=== PATIENT | female | born 1945 | race Hispanic/Latino ===

== ENCOUNTER 2017-10-24 22:48 | Emergency (ER) | payer MEDICARE ==
[~2017-10-24] VITALS: Ht 162.6 cm; Wt 63.0 kg
[~2017-10-24 22:48] MED LIST: ASPIRIN81 MG PO; ATORVASTATIN CA20 MG PO; CIPRO500 MG PO; GABAPENTIN100 MG PO; GLIMEPIRIDE2 MG PO; JANUVIA25 MG PO; LEVETIRACETAM250 MG PO; LISINOPRIL2.5 MG PO; MECLIZINE HCL12.5 MG PO; METFORMIN HCL500 MG PO; MUCINEX DM ER1 EACH PO; NAPROSYN250 MG PO; NOVOLIN N100 UNIT/1 SC; PIOGLITAZONE HC45 MG PO; SIMVASTATIN40 MG PO; ZITHROMAX500 MG PO
[2017-10-24] MEDS ORDERED: ONDANSETRON HCL INJ 2 MG/ML VIAL IV STA (23:14)
[2017-10-24 23:28] LABS: BASOPHILS % 0.6 % (0.0-1.0); EOSINOPHILS # (AUTO) 0.1 (0.0-0.4); EOSINOPHILS % 1.8 % (0.0-6.0); HEMOGLOBIN 11.3 g/dL (12.0-16.0); LYMPHOCYTES # (AUTO) 2.8 (1.0-3.2); LYMPHOCYTES % 56.9 % (18.0-39.1); MEAN CORPUSCULAR HEMOGLOBIN 29.4 pg (28-32); MEAN CORPUSCULAR HGB CONC 32.3 g/dL (31-35); MEAN CORPUSCULAR VOLUME 90.9 fL (81-99); MONOCYTES # (AUTO) 0.3 (0.2-0.8); MONOCYTES % 5.9 % (4.4-11.3); NEUTROPHILS # (AUTO) 1.7 (2.1-6.9); NEUTROPHILS % 34.8 % (38.7-80.0); PLATELET COUNT 223 x10e3/uL (140-360); RED BLOOD COUNT 3.85 x10e6/uL (3.6-5.1); RED CELL DISTRIBUTION WIDTH 13.8 % (11.7-14.4)
[2017-10-24 23:37] LABS: INR 0.92; PROTHROMBIN TIME 11.6 seconds (11.9-14.5)
[2017-10-24 23:38] LABS: PARTIAL THROMBOPLASTIN TIME 29.3 seconds (23.8-35.5)
[2017-10-24 23:47] LABS: ALANINE AMINOTRANSFERASE 14 IU/L (0-55); ALBUMIN 3.9 g/dL (3.5-5.0); ALBUMIN/GLOBULIN RATIO 1.3 (0.8-2.0); ALKALINE PHOSPHATASE 129 IU/L (40-150); ANION GAP 12.6 mmol/L (8-16); BLOOD UREA NITROGEN 18 mg/dL (7-26); BUN/CREATININE RATIO 17 (6-25); CALCIUM 8.9 mg/dL (8.4-10.2); CARBON DIOXIDE 26 mmol/L (22-29); CHLORIDE 108 mmol/L (98-107); CREATINE KINASE 87 IU/L (29-168); CREATININE, SERUM 1.06 mg/dL (0.57-1.11); EST GLOMERULAR FILTRATION RATE 51 ML/MIN (60-); GLUCOSE 238 mg/dL (74-118); POTASSIUM 4.6 mmol/L (3.5-5.1); SODIUM 142 mmol/L (136-145)
[2017-10-24 23:59] LABS: ERYTHROCYTE SEDIMENTATION RATE 13 mm/hr (0-20)
--- NOTE | 2017-10-25 00:09 | Diagnostic Imaging Report ---
EXAMINATION: Head CT without contrast. HISTORY:Headache prior history of subdural hemorrhage. COMPARISON:Multiple prior studies, most recent CT head from 03/28/2017 and MRI brain from 03/29/2017. TECHNIQUE: Multidetector axial images were obtained from the foramen magnum to the vertex without contrast. The images were reconstructed using brain and bone algorithms. Thin section brain images were reformatted into coronal and sagittal planes. Intravenous contrast: None IMAGE QUALITY: Acceptable. FINDINGS: Skull/scalp: Expected postoperative changes from prior left pterional craniotomy. Parenchyma: Unchanged cortical-based hypodensity in bilateral temporal lobe (left more than right) and left inferior frontal gyrus/orbitofrontal region represents chronic encephalomalacia related to prior vascular insult or trauma. Nonspecific bilateral frontoparietal patchy white matter hypodensity are likely related to small vessel ischemic changes. No acute hemorrhage, mass or acute major vascular territorial infarct. Arteries: Atherosclerotic calcification in bilateral carotid siphon and V4 segment of right vertebral artery. Dural sinuses: No abnormal density suggestive of thrombosis. Ventricles: No hydrocephalus or displacement. Extra-axial spaces: No abnormal density. Brain volume: Generalized age-related cerebral volume loss. Craniocervical junction: No mass, Chiari malformation, or basilar invagination. Sella: No mass. Paranasal/mastoid sinuses: Imaged portions unremarkable. IMPRESSION: No new or acute intracranial abnormality. No change since CT brain from 03/28/2017. Chronic findings: 1. Expected postoperative changes from prior left pterional craniotomy. 2. Chronic encephalomalacia in bilateral (left greater than right) temporal lobes and anterior aspect of left frontal lobe related to prior trauma or vascular insult. 3. Mild supratentorial white matter microvascular ischemic changes. 4. Mild generalized age-related cerebral volume loss. Signed by: Dr. Arleen Ham M.D. on 10/25/2017 12:06 AM
[2017-10-25] MEDS ORDERED: KETOROLAC TROMETHAMINE 30 MG/ML VIAL IV STA (00:20)
[2017-10-25] MEDS ORDERED: METOCLOPRAMIDE HCL 10 MG/2ML VIAL IV ONE (00:30)
[2017-10-25] MEDS ORDERED: DIPHENHYDRAMINE HCL INJ 50 MG/ML VIAL IV ONE (00:30)
[2017-10-25] MEDS ORDERED: SODIUM CHLORIDE 0.9% 500ML 500 ML IV ONE (00:30)
[2017-10-25] MEDS ORDERED: FIORICET PO (02:29)
[2017-10-25 02:31] VITALS: BP 140/69
== END 2017-10-25 02:44 | disposition home or self-care (01) ==
LOC: ER 22:48
DX: G44.1 Vascular headache, not elsewhere classified (principal); I10 Essential (primary) hypertension; E11.9 Type 2 diabetes mellitus without complications
CPT/HCPCS: 36415; 70450; 80053; 82550; 82553; 84484; 85025; 85610; 85651; 85730; 96360; 96374; 99284; J1200; J1885; J2405; J2765; J7040

== ENCOUNTER 2018-03-14 12:02 | Inpatient (IN) | payer MEDICARE ==
[~2018-03-14] VITALS: Ht 162.6 cm; Wt 70.1 kg
[~2018-03-14 12:02] MED LIST changes: +FIORICET PO
[2018-03-14] MEDS ORDERED: SODIUM CHLORIDE 0.9% 1000ML 1,000 ML IV STA (12:16)
[2018-03-14 12:43] LABS: BASOPHILS % 0.7 % (0.0-1.0); EOSINOPHILS # (AUTO) 0.1 (0.0-0.4); HEMOGLOBIN 11.8 g/dL (12.0-16.0); LYMPHOCYTES # (AUTO) 2.3 (1.0-3.2); LYMPHOCYTES % 50.3 % (18.0-39.1); MEAN CORPUSCULAR HEMOGLOBIN 30.3 pg (28-32); MEAN CORPUSCULAR HGB CONC 33.7 g/dL (31-35); MEAN CORPUSCULAR VOLUME 89.7 fL (81-99); MONOCYTES # (AUTO) 0.4 (0.2-0.8); MONOCYTES % 7.9 % (4.4-11.3); NEUTROPHILS # (AUTO) 1.8 (2.1-6.9); NEUTROPHILS % 38.9 % (38.7-80.0); PLATELET COUNT 221 x10e3/uL (140-360); RED CELL DISTRIBUTION WIDTH 13.4 % (11.7-14.4)
--- NOTE | 2018-03-14 12:46 | Diagnostic Imaging Report ---
PROCEDURE: A single AP view of the chest. COMPARISON: None. INDICATIONS: ELEVATED BLOOD PRESSURE FINDINGS: Lines/tubes: None. Lungs: The lungs are well inflated and clear. There is no evidence of pneumonia or pulmonary edema. Pleura: There is no pleural effusion or pneumothorax. Heart and mediastinum: The heart and the mediastinum are unremarkable. Bones: No acute bony abnormality. Stable suture anchor in the right humeral head IMPRESSION: 1. No acute cardiopulmonary disease. Dictated by: Heber Thompson M.D. on 03/14/2018 at 12:51 Electronically approved by: Heber Thompson M.D. on 03/14/2018 at 12:51
[2018-03-14 12:51] LABS: INR 0.97; PARTIAL THROMBOPLASTIN TIME 27.1 seconds (23.8-35.5); PROTHROMBIN TIME 12.1 seconds (11.9-14.5)
[2018-03-14 12:58] LABS: ALANINE AMINOTRANSFERASE 14 IU/L (0-55); ALBUMIN 4.2 g/dL (3.5-5.0); ALBUMIN/GLOBULIN RATIO 1.4 (0.8-2.0); ALKALINE PHOSPHATASE 93 IU/L (40-150); ANION GAP 11.9 mmol/L (8-16); BLOOD UREA NITROGEN 24 mg/dL (7-26); BUN/CREATININE RATIO 22 (6-25); CALCIUM 9.8 mg/dL (8.4-10.2); CARBON DIOXIDE 27 mmol/L (22-29); CHLORIDE 106 mmol/L (98-107); CREATINE KINASE 107 IU/L (29-168); CREATININE, SERUM 1.07 mg/dL (0.57-1.11); EST GLOMERULAR FILTRATION RATE 50 ML/MIN (60-); GLUCOSE 115 mg/dL (74-118); POTASSIUM 4.9 mmol/L (3.5-5.1); SODIUM 140 mmol/L (136-145)
--- NOTE | 2018-03-14 12:58 | Diagnostic Imaging Report ---
Exam: Head CT without contrast History: Possible CVA, history of previous brain surgery. Comparison studies: Multiple prior head CTs which date to 06/02/2016, most recent 10/24/2017. Technique: Axial images were obtained from the skull base to the vertex. Coronal and sagittal images reconstructed from the axial data. Intravenous contrast: None Findings: Scalp and bones: No acute abnormalities. Surgical changes of previous left foraminal craniotomy. Brain sulci: Mildly prominent. Ventricles: Mild compensatory dilatation. No hydrocephalus. Extra-axial spaces: No masses, no fluid collection. Parenchyma: No mass, acute hemorrhage or acute cortical vascular insults. There are unchanged chronic insults with encephalomalacia and gliosis in the anterior left temporal lobe, in the anterior inferomedial left frontal lobe as well as a small insult in the right anterior superior temporal gyrus. A few scattered hypodensities in the supratentorial white matter are nonspecific but most compatible with chronic microvascular ischemic changes. Sellar/suprasellar region: No abnormalities. Craniocervical junction: Patent foramen magnum. No Chiari one malformation. Incidental findings: Atherosclerotic calcifications in the carotid siphons and intradural vertebral arteries. Partially imaged chronic right orbital floor fracture status post ORIF with metallic mesh in place. IMPRESSION: No acute abnormalities. Chronic findings: 1. Mild generalized volume loss. 2. Mild microvascular ischemic changes. 3. Previous left pterional craniotomy. 4. Insults with encephalomalacia in the frontal lobe and left greater than right temporal lobes. Signed by: Dr. Kieran Samano M.D. on 03/14/2018 12:54 PM
[2018-03-14] MEDS ORDERED: ONDANSETRON HCL INJ 2 MG/ML VIAL IV PRN (14:00)
[2018-03-14] MEDS ORDERED: MORPHINE SULFATE 2 MG/ML SYR IV PRN (14:00)
[2018-03-14] MEDS ORDERED: SODIUM CHLORIDE FLUSH 10 ML SYR INJ PRN (14:00)
[2018-03-14 14:33] LABS: CLARITY,URINE CLEAR (CLEAR); COLOR,URINE STRAW (YELLOW)
[2018-03-14 14:34] LABS: BILIRUBIN,URINE NEGATIVE (NEGATIVE); KETONES,URINE NEGATIVE (NEGATIVE); LEUKOCYTE ESTERASE ,URINE NEGATIVE (NEGATIVE); NITRITE,URINE NEGATIVE (NEGATIVE); PROTEIN,URINE DIPSTICK NEGATIVE (NEGATIVE); URINE UROBILINOGEN 0.2 mg/dL (0.2 - 1)
[2018-03-14] MEDS ORDERED: PROPRANOLOL HCL10 MG PO (14:58)
[2018-03-14] MEDS ORDERED: NITROFURANTOIN100 MG PO (14:58)
[2018-03-14] MEDS ORDERED: URSODIOL300 MG PO (14:58)
[2018-03-14] MEDS ORDERED: GLYCOPYRROLATE1 MG PO (15:02)
[2018-03-14] MEDS ORDERED: BACLOFEN10 MG PO (15:02)
[2018-03-14 16:00] VITALS: BP 211/88
[2018-03-14] MEDS ORDERED: ACETAMINOPHEN/CODEINE 300MG - 30MG TAB PO PRN (16:30)
[2018-03-14] MEDS ORDERED: HYDRALAZINE HCL 25 MG TAB PO PRN (16:30)
[2018-03-14] MEDS ORDERED: ACETAMINOPHEN 325 MG TAB PO PRN ×2 (16:45→17:30)
[2018-03-14] MEDS: TRAMADOL HCL 50 MG TAB PO PRN ×2 (17:06→23:47)
--- NOTE | 2018-03-14 19:20 | Diagnostic Imaging Report ---
Exam: Brain MRI without IV contrast History: CVA, left-sided weakness Comparison studies: Multiple head CTs which date to 06/02/2016, most recent of 03/14/2016. Technique: Sagittal and axial T2 FS, axial DWI, axial T2*GRE, axial T1 FLAIR and axial coronal T2 FLAIR. Intravenous contrast: None Findings: Scalp and skull: Changes of previous left pterional craniotomy. Brain sulci: Mildly prominent. Ventricles: Mild compensatory dilatation. No hydrocephalus. Extra axial spaces: No mass, no fluid collection. Parenchyma: No mass, acute hemorrhage or acute ischemia. There are unchanged chronic insults with encephalomalacia and gliosis in the anterior left temporal lobe, in the anterior, inferomedial left frontal lobe as well as small insult along the right superior temporal gyrus anteriorly. Incidental along the left anteromedial frontal lobe is with hemosiderin staining related to previous hemorrhage. A few scattered T2 FLAIR hyperintense foci in the supratentorial white matter are nonspecific but most compatible with chronic microvascular ischemic changes. Suprasellar region: No abnormalities. Craniocervical junction: Patent foramen magnum. No Chiari malformation. Vessels: Normal flow-voids in the arteries and sinuses. Incidental findings: Bilateral intraocular lens replacements. Chronic right orbital floor fracture status post or left with metallic mesh in place. IMPRESSION: No acute ischemia or other acute intracranial abnormalities. No changes from the previous brain MRI of 03/29/2017. Chronic findings: 1. Mild generalized volume loss. 2. Mild microvascular ischemic changes. 3. Previous left pterional craniotomy. 4. Insults with encephalomalacia in the frontal lobe and left greater than right temporal lobes. Signed by: Dr. Kieran Samano M.D. on 03/14/2018 7:17 PM
[2018-03-14 20:01] VITALS: BP 133/61
[2018-03-14] MEDS: LEVETIRACETAM 500 MG TAB PO SCH (20:03)
[2018-03-14] MEDS: GABAPENTIN 100 MG CAP PO SCH (20:04)
[2018-03-14] MEDS: INSULIN LISPRO 100 UNIT/1 ML 3ML VIAL SQ SCH (20:06)
[2018-03-14 21:31] VITALS: BP 133/61
[2018-03-15] VITALS (8 sets, daily range): BP systolic 103–148; BP diastolic 56–67
[2018-03-15] MEDS: INSULIN LISPRO 100 UNIT/1 ML 3ML VIAL SQ SCH ×4 (07:30→20:29)
[2018-03-15] MEDS: LEVETIRACETAM 500 MG TAB PO SCH ×2 (08:37→17:08)
[2018-03-15] MEDS: BACLOFEN 10 MG TAB PO SCH ×2 (08:37→17:08)
[2018-03-15] MEDS: GABAPENTIN 100 MG CAP PO SCH ×3 (08:37→20:26)
[2018-03-15] MEDS: GLIMEPIRIDE 2 MG TAB PO SCH (08:37)
[2018-03-15] MEDS: ASPIRIN 81 MG CHEW TAB PO SCH (08:37)
[2018-03-15] MEDS: URSODIOL 300 MG CAP PO SCH ×2 (08:37→17:08)
--- NOTE | 2018-03-15 12:39 | Consultation ---
DATE OF CONSULTATION: March 15, 2018 NEUROLOGY CONSULT NOTE HISTORY OF PRESENT ILLNESS: Ms. Delgado is a 72-year-old [id number] woman with past medical history significant for hypertension, hyperlipidemia, diabetes mellitus type 2, prior stroke with residual left hemiparesis, hemihypesthesia, and gait impairment, and a prior intracerebral hemorrhage status post craniotomy without residual deficits, who presented to the emergency center at [facility] on March 14, 2018 with stroke-like symptoms in the setting of severely elevated blood pressure. Beginning approximately 5 days ago, the patient's blood pressures gradually increased to approximately 180 systolic over 100s diastolic. During this time, Ms. Delgado experienced worsening of her baseline left hemiparesis. Other symptoms endorsed by the patient include: Dysarthria, left hemihypesthesia, gait impairment, dizziness which is further described as a vertiginous sensation, and mild confusion. Ms. Delgado reports a generalized headache which is described as pressure, blurred vision, and nausea without vomiting as well. After 2 days of gradually increasing blood pressures, Ms. Delgado contacted her primary care physician, who recommended the patient proceed to the nearest emergency center for evaluation. However, the patient had a followup appointment scheduled with her neurologist the following day and decided to wait for that appointment before pursuing further medical evaluation. During her neurologist evaluation, worsening of the patient's baseline neurological deficits were observed. Her neurologist scheduled a CT of the brain to be performed on March 14, 2018 at 1600. However, on the day of admission, Ms. Delgado symptoms as detailed above worsened. She took her blood pressure, which was 211/109 mmHg. Ms. Delgado then proceeded to the emergency center at [facility] for further evaluation. Upon arrival in the emergency center, the patient was afebrile with a blood pressure of 218/90 mmHg and a pulse of 50 beats per minute. Her neurological examination was significant for a decreased level of alertness, mild dysarthria, mild right-sided facial weakness and left-sided facial weakness, mildly abnormal finger-nose test on the left, and localized weakness of the left leg (4 out 5). A CT of the brain without contrast was performed and did not show evidence of a recent large territorial ischemia or hemorrhage. Ms. Delgado was admitted to [facility] as an inpatient for further evaluation and treatment of a suspected stroke. As stated above, the patient has a known history of hypertension for which she takes propranolol 10 mg by mouth twice daily and lisinopril 2.5 mg by mouth daily at home. The patient follows up with her primary care physician every 2 to 3 months (approximately). She monitors her blood pressure at home once every other day. REVIEW OF SYSTEMS: Dry mouth, heartburn, nausea, confusion, blurred vision, dysarthria, left hemiparesis, left hemihypesthesia, impairment of balance and gait, headache, and vertigo. Otherwise, a 12-point review of systems is negative. PAST MEDICAL HISTORY: Hypertension, hyperlipidemia, diabetes mellitus type 2, osteoarthritis, chronic kidney disease stage 1 or 2, occasional migraines, prior stroke with residual left hemiparesis, left hemihypesthesia, and gait impairment, prior intracerebral hemorrhage status post right-sided craniotomy without residual deficits. PAST SURGICAL HISTORY: Cholecystectomy, section, total hysterectomy, right-sided craniotomy, appendectomy, bilateral rotator cuff repair, bilateral cataract removal, repair of right orbital fracture. PAST HOSPITALIZATIONS: Surgeries/procedures as listed, stroke, childbirth x3. FAMILY MEDICAL HISTORY: The patient's paternal and maternal grandparents are . Their medical histories are unknown. The patient's father is . He had diabetes mellitus. Ms. Delgado's mother is . Her only known medical history is osteoporosis. Ms. Delgado had one brother who is from coronary artery disease. She has 2 sisters, both of whom are alive. One sister has a history of breast cancer and colon cancer. The second sister has a history of breast cancer. Ms. Delgado has 3 children, 1 son and 2 daughters. All are alive and healthy. SOCIAL HISTORY: The patient is . She graduated high school and attended some college. Ms. Delgado is retired. She does not report current or prior tobacco or recreational drug use. She endorses rare alcohol use. HOME MEDICATIONS: Aspirin 81 mg by mouth daily, lisinopril 2.5 mg by mouth daily, propranolol 10 mg by mouth twice daily, simvastatin 40 mg by mouth daily, glimepiride 2 mg by mouth daily, Novolin N 6 units subcutaneously at bedtime daily, baclofen 10 mg by mouth twice daily, gabapentin 300 mg by mouth 3 times daily, glycopyrrolate 2 mg by mouth 3 times daily, levetiracetam 500 mg by mouth twice daily, nitrofurantoin 100 mg by mouth every 12 hours, ursodiol 300 mg by mouth twice daily. ALLERGIES: CODEINE. NO KNOWN FOOD ALLERGIES. NO KNOWN ALLERGIES TO LATEX. NO KNOWN ALLERGIES TO IODINE OR OTHER CONTRAST MATERIALS. PHYSICAL EXAMINATION: VITAL SIGNS: Height 64 inches, weight 154 pounds, BMI 26.5 kg/sq m. Blood pressure 119/60 mmHg, pulse 55 beats per minute, respiratory rate 16 breaths per minute, oxygen saturation 98% on room air. GENERAL: The patient is awake and alert, does not appear distressed. HEENT: Normocephalic, atraumatic. Pupils are surgical. Moist mucous membranes. NECK: Supple. No appreciable thyromegaly. No appreciable carotid bruits. CARDIOVASCULAR: S1, S2, regular rate and rhythm. No murmurs, rubs, or gallops. RESPIRATORY: Clear to auscultation bilaterally. No wheezes, rhonchi, or rales. EXTREMITIES: The skin is warm and dry. No clubbing, cyanosis, or edema. The posterior tibial and dorsalis pedis pulses are 1+ and symmetric. SKIN: No rashes or lesions. NEUROLOGIC EXAMINATION: MEMORY/ATTENTION: The patient is awake and alert, oriented to person, place, time, and situation. CRANIAL NERVES: Cranial nerve I - not tested. Cranial nerves II, III, IV, and - Pupils are surgical. Extraocular movements intact. No nystagmus. Cranial nerve V - Sensation to light touch and pinprick is diminished in the left V1 through V3 distributions. Strength of the temporalis and masseter muscles is within normal limits. Cranial nerve VII - The face is symmetric as are all facial movements. Strength is within normal limits. Cranial nerve VIII - Hearing is intact to finger rub bilaterally. Cranial nerve IX, X - The soft palate elevates equally and symmetrically. Cranial nerve XI - Normal strength of the bilateral sternocleidomastoid and trapezius muscles. Cranial nerve XII - The tongue protrudes midline and moves symmetrically from side to side. STRENGTH: Bulk is normal. Strength is 5/5 in the right deltoids, biceps, triceps, wrist flexors and extensors, finger flexors and extensors, intrinsic hand muscles, hip flexors, knee flexors and extensors, ankle dorsiflexion and plantarflexion, and intrinsic foot muscles. Strength is 4+/5 in the left deltoid, 4+/5 in the left biceps, 4/5 in the left triceps, 4+/5 in the left wrist flexors, 4/5 in the left wrist extensors, 4+/5 in the left finger flexors, 4+/5 in the left finger extensors, 4/5 in the left intrinsic hand muscles, 4/5 in the left hip flexors, 4/5 in the left knee flexors, 4+/5 in the left knee extensors, 4/5 left ankle dorsiflexion, 4+/5 left ankle plantarflexion, and 4/5 in the left intrinsic foot muscles. Tone is normal. DTRs: Deep tendon reflexes are 1+ at the right triceps, biceps, brachioradialis, and patella. Deep tendon reflexes are 2+ at the left triceps, biceps, brachioradialis, and patella. Deep tendon reflexes are absent and symmetric at the Achilles. Plantar responses are flexor bilaterally. SENSATION: Sensation is intact to light touch and pinprick in both arms and both legs. CEREBELLAR: Qozjig-orcj-clwzrd and heel-andersen movements are intact without dysmetria or other impairment. GAIT: Deferred. SPEECH: Spontaneous speech is mildly dysarthric without aphasia. Repetition is intact. INVOLUNTARY MOVEMENTS: None. PRONATOR DRIFT: None. LABORATORY DATA: Sodium 140, potassium 4.9, chloride 106, carbon dioxide 27, anion gap 11.9, BUN 24, creatinine 1.07, estimated GFR 50, BUN to creatinine ratio 22, glucose 115, calcium 9.8. Total bilirubin 0.7, AST 14, ALT 14, alkaline phosphatase 93, total protein 7.2, albumin 4.2, globulin 3.0, albumin to globulin ratio 1.4. Creatine kinase 107, CK-MB 1.00, troponin I less than 0.001. The CBC with differential and platelets reveals a white blood cell count of 4.57 with 38.9% neutrophils, 50.3% lymphocytes, 7.9% monocytes, 2.0% eosinophils, and 0.7% basophils. The hemoglobin and hematocrit are 11.8 and 35.0, respectively. The platelet count is 221,000. PT 12.1, INR 0.97, PTT 27.1. Urinalysis is unremarkable. DIAGNOSTIC STUDIES: 1. Electrocardiogram, March 14, 2018: Sinus bradycardia at 57 beats per minute. 2. Chest x-ray, March 14, 2018: No acute cardiopulmonary disease. 3. CT of the brain without contrast, March 14, 2018: On my review, there is no evidence of recent large territorial ischemia, hemorrhage, mass, or mass effect. Prior vascular insults with encephalomalacia in the left frontal lobe and left greater than right temporal lobes are seen. There are findings compatible with a prior left-sided craniotomy. There is diffuse cerebral atrophy, appropriate for age. There are changes compatible with mild to moderate chronic small-vessel ischemic disease. 4. MRI of the brain without contrast, March 14, 2018: On my review, there is no evidence of recent large territorial ischemia, hemorrhage, mass, or mass effect. Prior vascular insults with encephalomalacia in the left frontal lobe and left greater than right temporal lobes are once again seen. There are changes compatible with a prior left-sided craniotomy. There is diffuse cerebral atrophy, appropriate for age. There are scattered nonspecific T2/FLAIR hyperintensities in the deep white matter compatible with mild to moderate chronic small-vessel ischemic disease. ASSESSMENT AND PLAN: Ms. Delgado is a 72-year-old [id number] woman with past medical history as detailed, presenting to [facility] on March 14, 2018 with worsening dysarthria, left hemiparesis, left hemihypesthesia, and gait impairment in the setting of severely elevated blood pressure. At present, the patient's neurological examination is significant for diminished sensation to light touch and pinprick in the left V1 through V3 distributions, mild left hemiparesis, hyperreflexic deep tendon reflexes in the left arm and left leg, and mildly dysarthric speech without aphasia. Of note, Ms. Delgado reports her symptoms have improved since her admission last night. The patient's laboratory data and other diagnostic studies have been reviewed and are documented above. A new vascular insult (ischemic stroke or intracerebral hemorrhage) is not observed on either the CT of the brain without contrast or the MRI of the brain without contrast. The most probable diagnosis for this patient is recrudescence of prior deficits in the setting of hypertensive emergency. RECOMMENDATIONS: As follows: 1. The patient's home blood pressure medications of lisinopril 2.5 mg by mouth daily and propranolol 10 mg by mouth twice daily will be resumed. Treatment with p.r.n. hydralazine will be continued. The patient's vital signs should be monitored per unit protocol. Ms. Delgado's goal blood pressure is less than 140/90 mmHg. If the patient's blood pressure comes under better control, her neurological deficit should improve until she returns to her previous neurological baseline. 2. Continue the patient's medications for stroke prevention. These include aspirin 81 mg by mouth daily, antihypertensive medications as listed above, simvastatin 40 mg by mouth daily, glimepiride 2 mg by mouth daily, and Novolin N 6 units subcutaneously at bedtime daily. 3. Continue Keppra 500 mg by mouth twice daily for seizure prophylaxis. Of note, Ms. Delgado has never experienced a seizure. However, due to her prior cerebrovascular insults, her neurologist has placed her on Keppra for seizure prophylaxis. 4. Speech and physical therapy consultations will be ordered. 5. GI prophylaxis with Pepcid 20 mg by mouth twice daily before meals. DVT prophylaxis with heparin 5000 units subcutaneously every 12 hours. 6. Defer treatment of the remaining medical comorbidities to the primary and other services. Thank you for this consultation. I will continue to follow the patient while she remains in the hospital. TIME SPENT: 70 minutes. Job#: [id number] DR GEORGE
[2018-03-15] MEDS: TRAMADOL HCL 50 MG TAB PO PRN (12:41)
[2018-03-15] MEDS ORDERED: SIMVASTATIN 40 MG TAB PO SCH (17:00)
[2018-03-15] MEDS: FAMOTIDINE 20 MG TAB PO SCH (17:08)
[2018-03-15] MEDS: PROPRANOLOL HCL 10 MG TAB PO SCH (17:08)
[2018-03-15] MEDS: HEPARIN SOD (PORCINE) 5,000 UNIT/ML VIAL SC SCH (20:27)
[2018-03-16] VITALS: BP 105/56
[2018-03-16 04:00] VITALS: BP_SYST 105; BP_SYST 111; BP_DIAS 56; BP_DIAS 57
[2018-03-16 05:18] LABS: BASOPHILS % 0.2 % (0.0-1.0); EOSINOPHILS # (AUTO) 0.1 (0.0-0.4); EOSINOPHILS % 1.7 % (0.0-6.0); HEMOGLOBIN 11.1 g/dL (12.0-16.0); LYMPHOCYTES # (AUTO) 2.1 (1.0-3.2); LYMPHOCYTES % 40.5 % (18.0-39.1); MEAN CORPUSCULAR HEMOGLOBIN 29.2 pg (28-32); MEAN CORPUSCULAR HGB CONC 31.7 g/dL (31-35); MEAN CORPUSCULAR VOLUME 92.1 fL (81-99); MONOCYTES # (AUTO) 0.4 (0.2-0.8); MONOCYTES % 7.3 % (4.4-11.3); NEUTROPHILS # (AUTO) 2.6 (2.1-6.9); NEUTROPHILS % 50.1 % (38.7-80.0); PLATELET COUNT 229 x10e3/uL (140-360); RED CELL DISTRIBUTION WIDTH 13.6 % (11.7-14.4)
[2018-03-16 05:44] LABS: ANION GAP 13.9 mmol/L (8-16); CALCIUM 8.7 mg/dL (8.4-10.2); CREATININE, SERUM 1.03 mg/dL (0.57-1.11); MAGNESIUM 2.1 MG/DL (1.3-2.1); POTASSIUM 4.9 mmol/L (3.5-5.1)
[2018-03-16] MEDS: INSULIN LISPRO 100 UNIT/1 ML 3ML VIAL SQ SCH ×2 (07:30→13:15)
[2018-03-16 08:00] VITALS: BP 120/80
[2018-03-16 08:25] VITALS: BP 120/80
[2018-03-16] MEDS: PROPRANOLOL HCL 10 MG TAB PO SCH (08:25)
[2018-03-16] MEDS: BACLOFEN 10 MG TAB PO SCH (08:25)
[2018-03-16] MEDS: FAMOTIDINE 20 MG TAB PO SCH (08:25)
[2018-03-16] MEDS: GLIMEPIRIDE 2 MG TAB PO SCH (08:25)
[2018-03-16] MEDS: ASPIRIN 81 MG CHEW TAB PO SCH (08:25)
[2018-03-16] MEDS: LEVETIRACETAM 500 MG TAB PO SCH (08:25)
[2018-03-16] MEDS: GABAPENTIN 100 MG CAP PO SCH (08:25)
[2018-03-16] MEDS: HEPARIN SOD (PORCINE) 5,000 UNIT/ML VIAL SC SCH (08:26)
[2018-03-16] MEDS ORDERED: LISINOPRIL 2.5 MG TAB PO SCH (09:00)
[2018-03-16 12:00] VITALS: BP 127/71
[2018-03-16] MEDS: URSODIOL 300 MG CAP PO SCH (13:15)
[2018-03-16] MEDS ORDERED: LISINOPRIL10 MG PO (13:29)
--- NOTE | 2018-03-16 19:22 | Discharge Summary ---
Patient is a 72-year-old female, who was admitted due to weakness and impaired speech. This started 5 days before the admission, which was around 7:15. She was feeling constant weakness of the left leg and tingling of the left hand as well. Patient had TIA before. She has a history of hypertension, diabetes mellitus, and previous stroke. When she was admitted, the blood pressure was 208/90. She was not in acute distress. The patient's speech was slurred and she was calm. No distress was present. Currently doing well. EXAM CURRENT VITALS: Blood pressure 120/80, afebrile, respiratory rate 20, oxygen saturation room air is 98, heart rate 55. HEENT: Atraumatic. NECK: No tenderness. LUNGS: Clear. HEART: No heart murmur. ABDOMEN: Soft. EXTREMITIES: No pedal edema. CBC and chemistry done was unremarkable. IMPRESSIONS 1. Most likely transient ischemic attack. 2. She has hypertension. 3. Diabetes mellitus. She was seen by Dr. Cho, who recommend patient to be discharged. So patient has been discharged on her usual medications, which include 1. Amaryl 2 mg a day. 2. Simvastatin 40 a day. 3. Keppra 500 b.i.d. 4. Neurontin 300 three times a day. 5. Aspirin 81 a day. 6. Pepcid 20 twice a day. 7. Lisinopril 2.5 daily. 8. Propranolol 10 mg twice a day. Dictated By: Dr. Faye Job#: [id number] CQ
== END 2018-03-16 14:06 | disposition home or self-care (01) | DRG 69 ==
LOC: ER 12:02 → ERHOLD 14:22 → MED/SURG3 15:45
PROVIDERS: ADMIT Internal Medicine; ATTEND Internal Medicine
DX: G45.9 Transient cerebral ischemic attack, unspecified (principal); I16.1 Hypertensive emergency; I69.354 Hemiplegia and hemiparesis following cerebral infarction affecting left non-dominant side; I12.9 Hypertensive chronic kidney disease with stage 1 through stage 4 chronic kidney disease, or unspecified chronic kidney disease; E11.22 Type 2 diabetes mellitus with diabetic chronic kidney disease; N18.2 Chronic kidney disease, stage 2 (mild); Z79.4 Long term (current) use of insulin; Z79.82 Long term (current) use of aspirin; E78.5 Hyperlipidemia, unspecified; I69.322 Dysarthria following cerebral infarction; R20.1 Hypoesthesia of skin; R26.9 Unspecified abnormalities of gait and mobility; R00.1 Bradycardia, unspecified; G43.909 Migraine, unspecified, not intractable, without status migrainosus
CPT/HCPCS: 36415; 70450; 70551; 71045; 80048; 80053; 81001; 82550; 82553; 82948; 83735; 84484; 85025; 85610; 85730; 92523; 93005; 97139; 99285; J1644; J2270; J2405; J7030

== ENCOUNTER 2018-06-14 11:03 | Emergency (ER) | payer MEDICARE ==
[~2018-06-14] VITALS: Ht 162.6 cm; Wt 69.9 kg
[~2018-06-14 11:03] MED LIST changes: +BACLOFEN10 MG PO; +FLAGYL500 MG PO; +GLYCOPYRROLATE1 MG PO; +LISINOPRIL10 MG PO; +NITROFURANTOIN100 MG PO; +PROPRANOLOL HCL10 MG PO; +URSODIOL300 MG PO
--- OUTSIDE RECORDS SUMMARY | 2018-06-14 11:06 | XMS REPORT | Clinical Summary ---
Author Author KENNETH [facility] Address Unknown Phone Unavailable Care Team Providers Care Assembler Piano Name Role Phone PCP Unavailable Allergies Active Allergy Reactions Severity Noted Date Comments Codeine 07/26/2010 Current Medications Prescription Sig. Disp. Refills Start End Date Status Date baclofen (LIORESAL) 10 MG Take 10 mg by mouth. 11/12/19 Active tablet 18 docusate sodium (COLACE) Take 100 mg by mouth. 11/02/19 Active 100 MG capsule 17 flavoxATE (URISPAS) 100 Take 100 mg by mouth. 01/12/20 Active mg tablet 17 gabapentin (NEURONTIN) Take 300 mg by mouth. 07/24/20 Active 300 MG capsule 17 glimepiride (AMARYL) 2 MG TAKE ONE TABLET BY MOUTH 09/13/19 Active tablet IN THE MORNING BEFORE 18 BREAKFAST glycopyrrolate (ROBINUL) Take 2 mg by mouth. 08/30/19 Active 2 MG tablet 18 insulin NPH (HUMULIN Inject 6 Units Active N,NOVOLIN N) 100 unit/mL subcutaneously. injection lancets (RELIAMED LANCET) Check glucose twice a 11/10/19 Active 30 gauge [facility] day. 17 levETIRAcetam (KEPPRA) TAKE ONE TABLET BY MOUTH 05/10/20 Active 500 MG tablet TWICE DAILY 17 lisinopril TAKE ONE TABLET BY MOUTH 10/30/19 Active (PRINIVIL,ZESTRIL) 2.5 MG ONCE DAILY 18 tablet ondansetron (ZOFRAN-ODT) One po tid prn 02/01/20 Active 4 MG disintegrating 17 tablet blood sugar diagnostic USE ONE STRIP TO CHECK 10/03/19 Active (ONETOUCH ULTRA TEST) GLUCOSE THREE TIMES DAILY 18 Strp simvastatin (ZOCOR) 40 MG Take 40 mg by mouth. Active tablet traMADol (ULTRAM) 50 mg Take 50 mg by mouth. 08/30/19 Active tablet 18 propranolol (INDERAL) 10 Take 10 mg by mouth. 11/12/19 12/02/19 Discontin MG tablet 18 18 ued Active Problems Problem Noted Date Acute pancreatitis, unspecified complication status, unspecified 11/28/2017 pancreatitis type Chest pain 11/28/2017 Encounters Date Type Specialty Care Team Description 11/28/2017 Hospital Cardiology Jose Talavera MD Acute pancreatitis, - Encounter Ever Saravia MD unspecified complication 12/01/2017 status, unspecified pancreatitis type (Primary Dx);Chest pain, unspecified type;SOB (shortness of breath);Hypotension, unspecified hypotension type 11/28/2017 Orders Only General Internal Medicine after 06/13/2017 Family History Medical History Relation Name Comments Cancer Sister Relation Name Status Comments Sister Social History Tobacco Use Types Packs/Day Years Used Date Never Smoker Smokeless Tobacco: Never Used Alcohol Use Drinks/Week oz/Week Comments No Sex Assigned at Date Recorded Not on file Last Filed Vital Signs Vital Sign Reading Time Taken Blood Pressure 140/64 12/01/2017 11:28 AM CDT Pulse 55 12/01/2017 11:28 AM CDT Temperature 36.2 C (97.2 F) 12/01/2017 11:28 AM CDT Respiratory Rate 19 12/01/2017 11:28 AM CDT Oxygen Saturation 99% 12/01/2017 11:28 AM CDT Inhaled Oxygen - - Concentration Weight 69.2 kg (152 lb 9.6 oz) 12/01/2017 8:10 AM CDT Height 157.5 cm (5' 2") 11/28/2017 5:42 PM CDT Body Mass Index 27.91 12/01/2017 8:10 AM CDT Plan of Treatment Not on file Results * RHYTHM STRIP - SCAN (12/03/2017 10:40 AM) Only the most recent of 2 results within the time period is included. * POC-Glucose meter (12/01/2017 2:23 PM) Only the most recent of 11 results within the time period is included. Component Value Ref Range POC-Glucose Meter 200 (H)Comment: TESTED AT [address] 70 - 110 mg/dL [facility] [id number] Specimen Performing Laboratory Blood [facility] [address] [address] * Calcium, Ionized (12/01/2017 5:44 AM) Only the most recent of 3 results within the time period is included. Component Value Ref Range Calcium, Ion 1.10 (L) 1.12 - 1.27 mmol/L pH, Blood 7.43 Specimen Performing Laboratory Blood - Arm, [address] [address] * CBC with platelet count + automated diff (12/01/2017 5:44 AM) Only the most recent of 4 results within the time period is included. Component Value Ref Range WBC 3.8 3.5 - 10.5 K/L RBC 3.27 (L) 3.93 - 5.22 M/L Hemoglobin 9.5 (L) 11.2 - 15.7 GM/DL Hematocrit 30.3 (L) 34.1 - 44.9 % MCV 92.7 79.4 - 94.8 fL MCH 29.1 25.6 - 32.2 pg MCHC 31.4 (L) 32.2 - 35.5 GM/DL RDW 13.2 11.7 - 14.4 % Platelets 231 150 - 450 K/CU MM MPV 10.5 9.4 - 12.3 fL nRBC 0 0 - 0 /100 WBC % Neutros 33 % % Lymphs 57 % % Monos 6 % % Eos 4 % % Baso 1 % # Neutros 1.23 (L) 1.56 - 6.13 K/L # Lymphs 2.13 1.18 - 3.74 K/L # Monos 0.24 0.24 - 0.36 K/L # Eos 0.13 0.04 - 0.36 K/L # Baso 0.03 0.01 - 0.08 K/L Immature 0 0 - 1 % Granulocytes-Relative Specimen Performing Laboratory Blood - Arm, [address] [address] * CBC with platelet count + automated diff (12/01/2017 5:44 AM) Only the most recent of 4 results within the time period is included. Specimen Performing Laboratory Blood Narrative The following orders were created for panel order CBC with platelet count + automated diff. Procedure Abnormality Status --------- ------ CBC with platelet count ...[[id number]]AbnormalEdited Result - FINAL Manual Differential[[id number]] Please view results for these tests on the individual orders. * Lipase (12/01/2017 5:44 AM) Only the most recent of 3 results within the time period is included. Component Value Ref Range Lipase 190 (H) 8 - 78 U/L Specimen Performing Laboratory Blood - Arm, [address] [address] * Amylase (12/01/2017 5:44 AM) Only the most recent of 3 results within the time period is included. Component Value Ref Range Amylase 195 (H) 25 - 125 U/L Specimen Performing Laboratory Blood - Arm, [address] [address] * Hepatic function panel (12/01/2017 5:44 AM) Only the most recent of 3 results within the time period is included. Component Value Ref Range Protein, Total 5.9 (L) 6.0 - 8.3 gm/dL Albumin 3.4 (L) 3.5 - 5.0 g/dL Total Bilirubin 0.4 0.2 - 1.2 mg/dL Bilirubin, Direct 0.2 0.1 - 0.5 mg/dL Alkaline Phosphatase 125 40 - 150 U/L AST 25 5 - 34 U/L ALT 38 6 - 55 U/L Specimen Performing Laboratory Blood - Arm, [address] [address] * Basic metabolic panel (12/01/2017 5:44 AM) Only the most recent of 4 results within the time period is included. Component Value Ref Range Sodium 140 136 - 145 meq/L Potassium 4.4 3.5 - 5.1 meq/L Chloride 109 (H) 98 - 107 meq/L CO2 25 22 - 29 meq/L BUN 15 7 - 21 mg/dL Creatinine 0.88 0.57 - 1.25 mg/dL Glucose 115 (H) 70 - 105 mg/dL Calcium 9.0 8.4 - 10.2 mg/dL EGFR 63Comment: ESTIMATED GFR IS NOT ACCURATE mL/min/1.73 sq m CREATININE CLEARANCE IN PREDICTING GLOMERULAR FILTRATION RATE. ESTIMATED GFR IS NOT APPLICABLE FOR DIALYSIS PATIENTS. Specimen Performing Laboratory Blood - Arm, [place] [address] * ECG 12 lead (11/30/2017 12:12 PM) Only the most recent of 2 results within the time period is included. Specimen Performing Laboratory GE MUSE Narrative Ventricular Rate 57 BPM Atrial Rate 57 BPM P-R Interval 142 ms QRS Duration 70 ms Q-T Interval 416 ms QTC Calculation(Bazett) 404 ms P [place] 41 degrees R [place] -15 degrees T [place] 27 degrees Sinus bradycardia Cannot rule out Anterior infarct , age undetermined Abnormal ECG When compared with ECG of 28-NOV-2017 11:50, Voltage criteria for LVH are no longer seen Confirmed by MD OMER YOCHAI ([id number]) on 12/03/2017 7:09:56 AM Procedure Note Interface, External Ris In - 12/03/2017 7:10 AM CDT Ventricular Rate 57 BPM Atrial Rate 57 BPM P-R Interval 142 ms QRS Duration 70 ms Q-T Interval 416 ms QTC Calculation(Bazett) 404 ms P [place] 41 degrees R [place] -15 degrees T [place] 27 degrees Sinus bradycardia Cannot rule out Anterior infarct , age undetermined Abnormal ECG When compared with ECG of 28-NOV-2017 11:50, Voltage criteria for LVH are no longer seen Confirmed by MD OMER YOCHAI ([id number]) on 12/03/2017 7:09:56 AM * Troponin I (11/30/2017 10:52 AM) Only the most recent of 3 results within the time period is included. Component Value Ref Range Troponin I <0.01 0.00 - 0.03 ng/mL Specimen Performing Laboratory Blood [address] [address] Narrative Troponin I (TnI) levels must be interpreted in the context of the presenting symptoms and the clinical findings. Elevated TnI levels indicate myocardial damage, but are not specific for ischemic heart disease. Elevated TnI levels are seen in patients with other cardiac conditions (including myocarditis and congestive heart failure), and slight TnI elevations occur in patients with other conditions, including sepsis, renal failure, acidosis, acute neurological disease, and persistent tachyarrhythmia. * Phosphorus (11/29/2017 6:04 AM) Component Value Ref Range Phosphorus 2.8 2.3 - 4.7 mg/dL Specimen Performing Laboratory Blood - Arm, Left [facility] [address] * Magnesium (11/29/2017 6:04 AM) Only the most recent of 2 results within the time period is included. Component Value Ref Range Magnesium 2.2 1.6 - 2.6 mg/dL Specimen Performing Laboratory Blood - Arm, [address] [address] * Hemoglobin A1c (11/29/2017 6:04 AM) Component Value Ref Range Hemoglobin A1C 6.4 (H) 4.3 - 6.1 % Specimen Performing Laboratory Blood - Arm, [address] [address] * Lipid panel (11/29/2017 6:04 AM) Component Value Ref Range Triglycerides 89 mg/dL Cholesterol 130 mg/dL HDL 42 mg/dL LDL Calculated 70 mg/dL Specimen Performing Laboratory Blood - Arm, [address] [address] Narrative Triglyceride Reference Range: Low Risk <150 [id number] High Risk 200-499 Very High Risk>=500 Cholesterol Reference Range: Low Risk <200 [id number] High Risk>240 HDL Cholesterol Reference Range: Low Risk >=60 High Risk <40 LDL Cholesterol Reference Range: Optimal<100 Near [id number] Very High >=190 * MR abdomen without IV contrast MRCP (11/29/2017 4:38 AM) Specimen Performing Laboratory [facility] Narrative FINAL REPORT History: Abnormal liver function tests Comparison: None Technique : Multiplanar imaging with multiple sequences of the abdomen was performed utilizing a 1.5 lionel magnet without the administration of gadolinium contrast. In addition, thin and thick slab images of the biliary tract as well as 3D reconstructions of the biliary system were also performed to evaluate for biliary tract abnormalities. Comment: The lung bases are clear. There are no focal or diffuse abnormalities of the osseous structures. The subcutaneous soft tissues as well as the musculature are within normal limits. The patient is status post cholecystectomy. The unenhanced spleen, adrenal glands, pancreas, stomach are within normal limits. There is no abdominal or retroperitoneal lymphadenopathy. The visualized portions of the large and small bowel are within normal limits. There is mild hepatic steatosis. There is a likely duodenal diverticulum. There is nonspecific bilateral perinephric stranding/edema. No ascites is identified. There is no intra or extrahepatic biliary ductal dilatation taking into consideration the patient's age as well as history of cholecystectomy. The common bile duct measures up to a maximum of 7 mm in diameter. No filling defects including stones or masses are identified in the biliary tract. Impression: 1. Status post cholecystectomy. 2. No significant biliary ductal dilatation taking into consideration the patient's age and history of cholecystectomy. There is no choledocholithiasis. Signed: Prakash Reeder MD Report Verified Date/Time:11/29/2017 07:58:38 Reading Location: [facility] Diagnostic Imaging Reading Room - [place] [address] Procedure Note Interface, External Ris In - 11/29/2017 8:00 AM CDT FINAL REPORT History: Abnormal liver function tests Comparison: None Technique : Multiplanar imaging with multiple sequences of the abdomen was performed utilizing a 1.5 lionel magnet without the administration of gadolinium contrast. In addition, thin and thick slab images of the biliary tract as well as 3D reconstructions of the biliary system were also performed to evaluate for biliary tract abnormalities. Comment: The lung bases are clear. There are no focal or diffuse abnormalities of the osseous structures. The subcutaneous soft tissues as well as the musculature are within normal limits. The patient is status post cholecystectomy. The unenhanced spleen, adrenal glands, pancreas, stomach are within normal limits. There is no abdominal or retroperitoneal lymphadenopathy. The visualized portions of the large and small bowel are within normal limits. There is mild hepatic steatosis. There is a likely duodenal diverticulum. There is nonspecific bilateral perinephric stranding/edema. No ascites is identified. There is no intra or extrahepatic biliary ductal dilatation taking into consideration the patient's age as well as history of cholecystectomy. The common bile duct measures up to a maximum of 7 mm in diameter. No filling defects including stones or masses are identified in the biliary tract. Impression: 1. Status post cholecystectomy. 2. No significant biliary ductal dilatation taking into consideration the patient's age and history of cholecystectomy. There is no choledocholithiasis. Signed: Prakash Reeder MD Report Verified Date/Time: 11/29/2017 07:58:38 Reading Location: [facility] Diagnostic Imaging Reading Room - [place] [address] * Urinalysis w/ Microscopic (11/29/2017 2:08 AM) Component Value Ref Range Color, UA Yellow Clarity, UA Clear Specific Foley, UA 1.025 1.001 - 1.035 pH, UA 6.0 5.0 - 8.0 Protein, UA 10 mg/dL (A) Negative Glucose, UA Negative Negative Ketones, UA Negative Negative Bilirubin, UA Negative Negative Blood, UA Negative Negative Nitrite, UA Negative Negative Leukocytes, UA Negative Negative Urobilinogen, UA 0.2 0.2 - 1.0 mg/dL RBC, UA 1 /HPF WBC, UA 1 /HPF Specimen Source Urine, Voided Specimen Performing Laboratory Urine - Urine, [place] [address] * Creatine Kinase (CK), Total and MB (11/29/2017 12:15 AM) Component Value Ref Range Total CK 125 29 - 200 U/L CK-MB 0.8 0.0 - 6.6 ng/mL MB Relative Index 0.6 % Specimen Performing Laboratory Blood - Arm, Left [address] [address] Narrative CK-MB Reference Range: <6.7Normal 6.7-10.0Borderline >10.0 Abnormal * US abdomen complete (11/28/2017 10:28 PM) Specimen Performing Laboratory [facility] Narrative FINAL REPORT INDICATION: abdominal pain COMPARISON: Correlation with contrast-enhanced abdomen and pelvis CT obtained eight hours prior TECHNIQUE:Real-time transabdominal marley scale and color Doppler ultrasound of the abdomen. FINDINGS: Liver: Size: 13.7cm. Echogenicity: Normal. Masses/lesions: None. Surface Nodularity: None. Intrahepatic bile ducts: Normal. Common bile duct: 0.7 cm. MPV: 1.1cm. Gallbladder: Surgically absent Pancreas: Head and uncinate process: Unremarkable. Body and tail: Not well-seen. Spleen: Size: 8.5cm. Echogenicity: Unremarkable. Right kidney: Size: 10.5 x 4.5 x 4 point cm. Parenchyma: Normal echogenicity. No cysts. No stones. Hydronephrosis: None. Left kidney: Size: 10.9 x 4.9 x 4.5 cm. Parenchyma: Normal echogenicity. No cysts. No stones. Hydronephrosis: None. Ascites: None. Regional Vasculature: The visible abdominal aorta, IVC and hepatic veins are patent. Additional findings: None. IMPRESSION: Post cholecystectomy. Otherwise unremarkable sonographic examination of the abdomen. Signed: JR Laws Robert MD Report Verified Date/Time:11/28/2017 22:52:22 Reading Location: [facility] C013Y CT Body Reading Room Procedure Note Interface, External Ris In - 11/28/2017 10:54 PM CDT FINAL REPORT INDICATION: abdominal pain COMPARISON: Correlation with contrast-enhanced abdomen and pelvis CT obtained eight hours prior TECHNIQUE: Real-time transabdominal marley scale and color Doppler ultrasound of the abdomen. FINDINGS: Liver: Size: 13.7cm. Echogenicity: Normal. Masses/lesions: None. Surface Nodularity: None. Intrahepatic bile ducts: Normal. Common bile duct: 0.7 cm. MPV: 1.1cm. Gallbladder: Surgically absent Pancreas: Head and uncinate process: Unremarkable. Body and tail: Not well-seen. Spleen: Size: 8.5cm. Echogenicity: Unremarkable. Right kidney: Size: 10.5 x 4.5 x 4 point cm. Parenchyma: Normal echogenicity. No cysts. No stones. Hydronephrosis: None. Left kidney: Size: 10.9 x 4.9 x 4.5 cm. Parenchyma: Normal echogenicity. No cysts. No stones. Hydronephrosis: None. Ascites: None. Regional Vasculature: The visible abdominal aorta, IVC and hepatic veins are patent. Additional findings: None. IMPRESSION: Post cholecystectomy. Otherwise unremarkable sonographic examination of the abdomen. Signed: JR Laws Robert MD Report Verified Date/Time: 11/28/2017 22:52:22 Reading Location: [facility] C013Y CT Body Reading Room * XR abdomen / KUB 1 view (11/28/2017 8:20 PM) Specimen Performing Laboratory GE RIS Narrative FINAL REPORT CLINICAL HISTORY: Abdominal pain COMPARISON: None. Correlation is made with a CT of the abdomen and pelvis performed earlier on the same date. FINDINGS: A single supine view the abdomen is submitted. The abdominal bowel gas pattern is unobstructed. There is no focus of dilated large or small bowel. There is no evidence of organomegaly or significant ascites. Excreted IV contrast is noted in the right renal collecting system. A 1 cm oval-shaped calcification in the right mid to lower abdomen correlates with a benign phlebolith or calcified lymph node in the right abdomen seen on CT scan.. There is no acute bony abnormality. Signed: Lily Ruff MD Report Verified Date/Time:11/28/2017 20:30:41 Reading Location: [address] Reading Room Procedure Note Interface, External Ris In - 11/28/2017 8:32 PM CDT FINAL REPORT CLINICAL HISTORY: Abdominal pain COMPARISON: None. Correlation is made with a CT of the abdomen and pelvis performed earlier on the same date. FINDINGS: A single supine view the abdomen is submitted. The abdominal bowel gas pattern is unobstructed. There is no focus of dilated large or small bowel. There is no evidence of organomegaly or significant ascites. Excreted IV contrast is noted in the right renal collecting system. A 1 cm oval-shaped calcification in the right mid to lower abdomen correlates with a benign phlebolith or calcified lymph node in the right abdomen seen on CT scan.. There is no acute bony abnormality. Signed: Lily Ruff MD Report Verified Date/Time: 11/28/2017 20:30:41 Reading Location: [address] Reading Room * ED ECG Interpretation (11/28/2017 2:14 PM) Narrative Jose Talavera MD 11/28/20172:14 PM ECG/EKG Interpretation Date/Time: 11/28/2017 11:51 AM Performed by: JOSE TALAVERA Authorized by: JOSE TALAVERA The ECG was interpreted by ED physician. The ECG is interpreted as sinus rhythm. Rate is normal rate. Other findings include: LVH. Clinical Impression: non-specific ECG * CT abdomen/pelvis with IV contrast (11/28/2017 1:30 PM) Specimen Performing Laboratory GE RIS Narrative FINAL REPORT HISTORY : Abdominal pain, unspecified abdominal pain Technique: Multiple axial images of the abdomen and pelvis were performed with the administration of IV contrast from the lung bases to the pubic symphysis. Delayed images were also obtained. This exam was performed according to our departmental dose optimization program which includes automated exposure control, adjustment of the mA and/or kV according to patient size and/or use of iterative reconstructive technique. COMPARISON : 05/06/2008 COMMENT : The lung bases are clear. The visualized spleen, adrenal glands, pancreas, stomach are within normal limits. There are moderate-large sized duodenal diverticula. There are some areas of right renal cortical atrophy/scarring. There is atherosclerotic vascular disease. There is some focal fatty infiltration around the falciform ligament. As seen on the prior exam, there is an enhancing focus identified in the inferior aspect of the right hepatic lobe measuring approximately 1.6 cm. This should be further characterized with an MRI, liver mass protocol. The patient is status post cholecystectomy. There is no abdominal, retroperitoneal or pelvic lymphadenopathy. There are some relatively stable prominent distal paraesophageal lymph nodes with the largest measuring up to 0.8 cm. These lymph nodes can be continued to be followed. While these may be reactive, other etiologies cannot be excluded. Multilevel degenerative disc changes of the thoracolumbar spine are seen. Some likely postsurgical change/scar is seen in the anterior abdominal wall. There is some linear calcification versus linear foreign body along the scar/mesh material anteriorly. The findings should be correlated with the patient's procedural/surgical history. There is no free fluid or free air in the abdomen or pelvis. No findings of any bowel obstruction. The small bowel is within normal limits. There is colonic diverticulosis. There are no CT findings to suggest diverticulitis, however. The appendix is not visualized. However, there are no secondary CT findings to suggest appendicitis. The patient is status post hysterectomy. No adnexal masses/lesions are appreciated. Impression: 1. Colonic diverticulosis without CT findings of diverticulitis. 2. Duodenal diverticula. 3. Status post cholecystectomy and hysterectomy. Please see above for details. Signed: Prakash Reeder MD Report Verified Date/Time:11/28/2017 13:46:55 Reading Location: [facility] Diagnostic Imaging Reading Room - [place] [address] Procedure Note Interface, External Ris In - 11/28/2017 1:49 PM CDT FINAL REPORT HISTORY : Abdominal pain, unspecified abdominal pain Technique: Multiple axial images of the abdomen and pelvis were performed with the administration of IV contrast from the lung bases to the pubic symphysis. Delayed images were also obtained. This exam was performed according to our departmental dose optimization program which includes automated exposure control, adjustment of the mA and/or kV according to patient size and/or use of iterative reconstructive technique. COMPARISON : 05/06/2008 COMMENT : The lung bases are clear. The visualized spleen, adrenal glands, pancreas, stomach are within normal limits. There are moderate-large sized duodenal diverticula. There are some areas of right renal cortical atrophy/scarring. There is atherosclerotic vascular disease. There is some focal fatty infiltration around the falciform ligament. As seen on the prior exam, there is an enhancing focus identified in the inferior aspect of the right hepatic lobe measuring approximately 1.6 cm. This should be further characterized with an MRI, liver mass protocol. The patient is status post cholecystectomy. There is no abdominal, retroperitoneal or pelvic lymphadenopathy. There are some relatively stable prominent distal paraesophageal lymph nodes with the largest measuring up to 0.8 cm. These lymph nodes can be continued to be followed. While these may be reactive, other etiologies cannot be excluded. Multilevel degenerative disc changes of the thoracolumbar spine are seen. Some likely postsurgical change/scar is seen in the anterior abdominal wall. There is some linear calcification versus linear foreign body along the scar/mesh material anteriorly. The findings should be correlated with the patient's procedural/surgical history. There is no free fluid or free air in the abdomen or pelvis. No findings of any bowel obstruction. The small bowel is within normal limits. There is colonic diverticulosis. There are no CT findings to suggest diverticulitis, however. The appendix is not visualized. However, there are no secondary CT findings to suggest appendicitis. The patient is status post hysterectomy. No adnexal masses/lesions are appreciated. Impression: 1. Colonic diverticulosis without CT findings of diverticulitis. 2. Duodenal diverticula. 3. Status post cholecystectomy and hysterectomy. Please see above for details. Signed: Prakash Reeder MD Report Verified Date/Time: 11/28/2017 13:46:55 Reading Location: [facility] Diagnostic Imaging Reading Room - [place] [id number] * Blood culture (11/28/2017 12:30 PM) Only the most recent of 2 results within the time period is included. Component Value Ref Range Result No growth in 5 days Specimen Performing Laboratory Blood - Arm, [place] [address] * Rapid Troponin I (11/28/2017 12:18 PM) Component Value Ref Range Rapid Troponin I <0.05 <0.05 ng/mL Specimen Performing Laboratory Blood [facility], [facility] [address] [place] [address] * Rapid CK-MB (11/28/2017 12:18 PM) Component Value Ref Range Rapid CKMB 1.3 0.0 - 4.3 ng/mL Specimen Performing Laboratory Blood [facility], [facility] [address] [place] [address] * PT/PTT (11/28/2017 12:18 PM) Component Value Ref Range Protime 10.1 9.8 - 12.0 seconds INR 0.9 <=5.9 PTT 25.6 (L) 25.8 - 34.5 seconds Specimen Performing Laboratory [facility], [facility] [address] [place] [address] Narrative RECOMMENDED COUMADIN/WARFARIN INR THERAPY RANGES STANDARD DOSE: 2.0 - 3.0 Includes: PROPHYLAXIS for venous thrombosis, systemic embolization; TREATMENT for venous thrombosis and/or pulmonary embolus. HIGH RISK: Target INR is 2.5-3.5 for patients with mechanical heart valves. * Lactic acid, venous, whole blood (11/28/2017 12:18 PM) Component Value Ref Range Lactate, Venous 1.2 0.5 - 2.2 mmol/L Specimen Performing Laboratory [facility], [facility], [facility] [address] [place] [address] Narrative Effective 12/28/2015: Units/Reference Range Change New: 0.5-2.2 mmol/LPrevious: 5-18 mg/dL * B-type Natriuretic Factor (BNP) (11/28/2017 12:18 PM) Component Value Ref Range BNP 22 0 - 100 pg/mL Specimen Performing Laboratory Blood [facility], [facility], [facility] [address] [place] [address] * Cardiac Enzymes - CPK (11/28/2017 12:18 PM) Component Value Ref Range Total CK 166 25 - 235 U/L Specimen Performing Laboratory Blood [facility], [facility], [facility] [address] [place] [address] * XR chest 2 views (11/28/2017 12:08 PM) Specimen Performing Laboratory [facility] Narrative FINAL REPORT Chest two views compared to February 20, 2005 Discussion: Heart, lungs, bones, soft tissues unremarkable except for right shoulder postoperative changes. No effusion or pneumothorax. Signed: Michelle Dietz MD Report Verified Date/Time:11/28/2017 12:20:05 Reading Location: [facility] Radiology Reading Room Procedure Note Interface, External Ris In - 11/28/2017 12:22 PM CDT FINAL REPORT Chest two views compared to February 20, 2005 Discussion: Heart, lungs, bones, soft tissues unremarkable except for right shoulder postoperative changes. No effusion or pneumothorax. Signed: Michelle Dietz MD Report Verified Date/Time: 11/28/2017 12:20:05 Reading Location: [facility] Radiology Reading Room after 06/13/2017
[2018-06-14] MEDS ORDERED: ONDANSETRON HCL 4 MG ORAL DISINTEGRATING TAB PO ONE (11:30)
== END 2018-06-14 12:31 | disposition home or self-care (01) ==
LOC: FSED 11:03
DX: R11.0 Nausea (principal); R12 Heartburn; K21.0 Gastro-esophageal reflux disease with esophagitis; R51 Headache; I10 Essential (primary) hypertension
CPT/HCPCS: 80053; 82553; 84484; 85025; 93005; 99283

== ENCOUNTER 2018-10-11 13:30 | Emergency (ER) | payer MEDICARE ==
[~2018-10-11] VITALS: Ht 162.6 cm; Wt 69.4 kg
--- OUTSIDE RECORDS SUMMARY | 2018-10-11 13:33 | XMS REPORT | Clinical Summary ---
Author Author KENNETH [facility] Address Unknown Phone Unavailable Care Team Providers Care Branch Library Clerk Name Role Phone Eagle Olsen MD PCP Unavailable Allergies Comments Active Allergy Reactions Severity Noted Date Codeine 07/26/2010 Medications End Date Status Medication Sig Dispensed Refills Start Date Active baclofen (LIORESAL) 10 MG Take 10 mg by 0 tablet mouth. 8 Active docusate sodium (COLACE) Take 100 mg 0 100 MG capsule by mouth. 7 Active flavoxATE (URISPAS) 100 Take 100 mg 0 mg tablet by mouth. 7 Active gabapentin (NEURONTIN) Take 300 mg 0 300 MG capsule by mouth. 7 Active glimepiride (AMARYL) 2 MG TAKE ONE 0 tablet TABLET BY 8 MOUTH IN THE MORNING BEFORE BREAKFAST Active glycopyrrolate (ROBINUL) Take 2 mg by 0 2 MG tablet mouth. 8 Active insulin NPH (HUMULIN Inject 6 0 N,NOVOLIN N) 100 unit/mL Units injection subcutaneousl y. Active lancets (RELIAMED LANCET) Check glucose 0 30 gauge Misc twice a day. 7 Active levETIRAcetam (KEPPRA) TAKE ONE 0 500 MG tablet TABLET BY 7 MOUTH TWICE DAILY Active lisinopril TAKE ONE 0 (PRINIVIL,ZESTRIL) 2.5 MG TABLET BY 8 tablet MOUTH ONCE DAILY Active ondansetron (ZOFRAN-ODT) One po tid 0 4 MG disintegrating prn 7 tablet Active blood sugar diagnostic USE ONE STRIP 0 (ONETOUCH ULTRA TEST) TO CHECK 8 Strp GLUCOSE THREE TIMES DAILY Active simvastatin (ZOCOR) 40 MG Take 40 mg by 0 tablet mouth. Active traMADol (ULTRAM) 50 mg Take 50 mg by 0 tablet mouth. 8 12/01/2017 Discontinued propranolol (INDERAL) 10 Take 10 mg by 0 MG tablet mouth. 8 Active Problems Problem Noted Date Acute pancreatitis, unspecified complication status, unspecified 11/28/2017 pancreatitis type Chest pain 11/28/2017 Encounters Care Team Description Date Type Specialty Jose Talavera MD Rodriguez, Hector B., MD Acute pancreatitis, unspecified complication status, unspecified pancreatitis type (Primary Dx); Chest pain, unspecified type; SOB (shortness of breath); Hypotension, unspecified hypotension type 11/28/2017 Hospital Cardiology - Encounter 12/01/2017 11/28/2017 Orders Only General Internal Medicine after 10/10/2017 Family History Medical History Relation Name Comments Cancer Sister Relation Name Status Comments Sister Social History Date Tobacco Use Types Packs/Day Years Used Never Smoker Smokeless Tobacco: Never Used Alcohol Use Drinks/Week oz/Week Comments No Sex Assigned at Date Recorded Not on file Industry Job Start Date Occupation Not on file Not on file Not on file Travel End Travel History Travel Start No recent travel history available. Last Filed Vital Signs Time Taken Vital Sign Reading 12/01/2017 11:28 AM CDT Blood Pressure 140/64 12/01/2017 11:28 AM CDT Pulse 55 12/01/2017 11:28 AM CDT Temperature 36.2 C (97.2 F) 12/01/2017 11:28 AM CDT Respiratory Rate 19 12/01/2017 11:28 AM CDT Oxygen Saturation 99% - Inhaled Oxygen - Concentration 12/01/2017 8:10 AM CDT Weight 69.2 kg (152 lb 9.6 oz) 11/28/2017 5:42 PM CDT Height 157.5 cm (5' 2") 12/01/2017 8:10 AM CDT Body Mass Index 27.91 Plan of Treatment Not on file Procedures Comments Procedure Name Priority Date/Time Associated Diagnosis RHYTHM STRIP - SCAN 12/03/2017 10:40 AM CDT POCT-GLUCOSE METER Routine 12/01/2017 2:23 PM CDT POCT-GLUCOSE METER Routine 12/01/2017 11:47 AM CDT POCT-GLUCOSE METER Routine 12/01/2017 7:17 AM CDT CBC W/PLT COUNT & AUTO Routine 12/01/2017 DIFFERENTIAL 5:44 AM CDT LIPASE Routine 12/01/2017 5:44 AM CDT AMYLASE Routine 12/01/2017 5:44 AM CDT CBC W/PLT COUNT & AUTO Routine 12/01/2017 DIFFERENTIAL 5:44 AM CDT HEPATIC FUNCTION PANEL Routine 12/01/2017 5:44 AM CDT CALCIUM, IONIZED Routine 12/01/2017 5:44 AM CDT BASIC METABOLIC PANEL (7) Routine 12/01/2017 5:44 AM CDT POCT-GLUCOSE METER Routine 11/30/2017 5:14 PM CDT ECG 12-LEAD Routine 11/30/2017 12:12 PM CDT POCT-GLUCOSE METER Routine 11/30/2017 11:44 AM CDT TROPONIN I Routine 11/30/2017 10:52 AM CDT POCT-GLUCOSE METER Routine 11/30/2017 7:22 AM CDT CBC W/PLT COUNT & AUTO Routine 11/30/2017 DIFFERENTIAL 5:12 AM CDT AMYLASE Routine 11/30/2017 5:12 AM CDT CBC W/PLT COUNT & AUTO Routine 11/30/2017 DIFFERENTIAL 5:12 AM CDT HEPATIC FUNCTION PANEL Routine 11/30/2017 5:12 AM CDT CALCIUM, IONIZED Routine 11/30/2017 5:12 AM CDT BASIC METABOLIC PANEL (7) Routine 11/30/2017 5:12 AM CDT POCT-GLUCOSE METER Routine 11/29/2017 8:50 PM CDT POCT-GLUCOSE METER Routine 11/29/2017 5:18 PM CDT POCT-GLUCOSE METER Routine 11/29/2017 12:28 PM CDT RHYTHM STRIP - SCAN 11/29/2017 12:25 PM CDT POCT-GLUCOSE METER Routine 11/29/2017 9:06 AM CDT CBC W/PLT COUNT & AUTO Routine 11/29/2017 DIFFERENTIAL 6:04 AM CDT TROPONIN I Routine 11/29/2017 6:04 AM CDT AMYLASE Routine 11/29/2017 6:04 AM CDT LIPASE Routine 11/29/2017 6:04 AM CDT CBC W/PLT COUNT & AUTO Routine 11/29/2017 DIFFERENTIAL 6:04 AM CDT PHOSPHORUS Routine 11/29/2017 6:04 AM CDT MAGNESIUM Routine 11/29/2017 6:04 AM CDT LIPID PANEL Routine 11/29/2017 6:04 AM CDT HEMOGLOBIN A1C Routine 11/29/2017 6:04 AM CDT HEPATIC FUNCTION PANEL Routine 11/29/2017 6:04 AM CDT CALCIUM, IONIZED Routine 11/29/2017 6:04 AM CDT BASIC METABOLIC PANEL (7) Routine 11/29/2017 6:04 AM CDT MR ABDOMEN WO CONTRAST STAT 11/29/2017 MRCP 4:38 AM CDT URINALYSIS W/ MICROSCOPIC Routine 11/29/2017 2:08 AM CDT CREATINE KINASE (CK), Routine 11/29/2017 TOTAL AND MB 12:15 AM CDT TROPONIN I Routine 11/29/2017 12:15 AM CDT US ABDOMEN COMPLETE STAT 11/28/2017 10:28 PM CDT POCT-GLUCOSE METER Routine 11/28/2017 9:09 PM CDT XR ABDOMEN 1 VIEW STAT 11/28/2017 8:20 PM CDT ED ECG INTERPRETATION Routine 11/28/2017 2:[address] ABDOMEN/PELVIS WITH IV STAT 11/28/2017 CONTRAST 1:30 PM CDT BLOOD CULTURE STAT 11/28/2017 12:30 PM CDT BLOOD CULTURE STAT 11/28/2017 12:19 PM CDT CBC W/PLT COUNT & AUTO STAT 11/28/2017 DIFFERENTIAL 12:18 PM CDT LIPASE STAT 11/28/2017 12:18 PM CDT LACTIC ACID, VENOUS, STAT 11/28/2017 WHOLE BLOOD 12:18 PM CDT CREATINE KINASE (CK) STAT 11/28/2017 12:18 PM CDT RAPID TROPONIN I STAT 11/28/2017 12:18 PM CDT B-TYPE NATRIURETIC FACTOR STAT 11/28/2017 (BNP) 12:18 PM CDT RAPID CK-MB STAT 11/28/2017 12:18 PM CDT PT/APTT STAT 11/28/2017 12:18 PM CDT CBC W/PLT COUNT & AUTO STAT 11/28/2017 DIFFERENTIAL 12:18 PM CDT MAGNESIUM STAT 11/28/2017 12:18 PM CDT BASIC METABOLIC PANEL (7) STAT 11/28/2017 12:18 PM CDT XR CHEST 2 VIEWS STAT 11/28/2017 12:08 PM CDT ECG 12-LEAD Routine 11/28/2017 11:50 AM CDT Procedure Note - Interface, External Ris In - 11/28/2017 10:58 PM CDT Ventricula r Rate 67 BPM Atrial Rate 67 BPM P-R Interval 152 ms QRS Duration 80 ms Q-T Interval 388 ms QTC Calculatio n(Bazett) 409 ms P Bowers 22 degrees R Bowers -22 degrees T Bowers 12 degrees Normal sinus rhythm Minimal voltage criteria for LVH, may be normal variant Borderline ECG When compared with ECG of 0 07:09, No significan t change was found ECG 12-LEAD STAT 11/28/2017 11:50 AM CDT after 10/10/2017 Results * RHYTHM STRIP - SCAN (12/03/2017 10:40 AM CDT) Only the most recent of 2 results within the time period is included. Narrative Performed At * POC-Glucose meter (12/01/2017 2:23 PM CDT) Only the most recent of 11 results within the time period is included. POC-Glucose Meter 200 (H)Comment: TESTED AT 70 - 110 mg/dL [address] [address] Specimen Blood Performing Organization Address [facility] Phone Number [address] [address] [phone] [place] [address] * Calcium, Ionized (12/01/2017 5:44 AM CDT) Only the most recent of 3 results within the time period is included. Calcium, Ion 1.10 (L) 1.12 - 1.27 mmol/L [facility] pH, Blood 7.43 [facility] Specimen Blood - Arm, Left Performing Organization Address [facility]ode Phone Number [address] [address] [facility] * CBC with platelet count + automated diff (12/01/2017 5:44 AM CDT) Only the most recent of 4 results within the time period is included. WBC 3.8 3.5 - 10.5 K/L [facility] RBC 3.27 (L) 3.93 - 5.22 M/L [facility] Hemoglobin 9.5 (L) 11.2 - 15.7 GM/DL [facility] Hematocrit 30.3 (L) 34.1 - 44.9 % [facility] MCV 92.7 79.4 - 94.8 fL [facility] MCH 29.1 25.6 - 32.2 pg [facility] MCHC 31.4 (L) 32.2 - 35.5 GM/DL [facility] RDW 13.2 11.7 - 14.4 % [facility] Platelets 231 150 - 450 K/CU MM [facility] MPV 10.5 9.4 - 12.3 fL [facility] nRBC 0 0 - 0 /100 WBC [facility] % Neutros 33 % [facility] % Lymphs 57 % [facility] % Monos 6 % [facility] % Eos 4 % [facility] % Baso 1 % [facility] # Neutros 1.23 (L) 1.56 - 6.13 K/L [facility] # Lymphs 2.13 1.18 - 3.74 K/L [facility] # Monos 0.24 0.24 - 0.36 K/L [facility] # Eos 0.13 0.04 - 0.36 K/L [facility] # Baso 0.03 0.01 - 0.08 K/L [facility] Immature 0 0 - 1 % [facility] Specimen Blood - Arm, Left Performing Organization Address [facility] Phone Number [address] * Lipase (12/01/2017 5:44 AM CDT) Only the most recent of 3 results within the time period is included. Lipase 190 (H) 8 - 78 U/L [facility] Specimen Blood - Arm, Left Performing Organization Address [facility] Phone Number [address] * Amylase (12/01/2017 5:44 AM CDT) Only the most recent of 3 results within the time period is included. Amylase 195 (H) 25 - 125 U/L [facility] Specimen Blood - Arm, Left Performing Organization Address [facility] Phone Number [address] * Hepatic function panel (12/01/2017 5:44 AM CDT) Only the most recent of 3 results within the time period is included. Protein, Total 5.9 (L) 6.0 - 8.3 gm/dL [facility] Albumin 3.4 (L) 3.5 - 5.0 g/dL [facility] Total Bilirubin 0.4 0.2 - 1.2 mg/dL [facility] Bilirubin, Direct 0.2 0.1 - 0.5 mg/dL [facility] Alkaline Phosphatase 125 40 - 150 U/L [facility] AST 25 5 - 34 U/L [facility] ALT 38 6 - 55 U/L [facility] Specimen Blood - Arm, Left Performing Organization Address [facility]ode Phone Number [facility] [address] [place] [address] [facility] * Basic metabolic panel (12/01/2017 5:44 AM CDT) Only the most recent of 4 results within the time period is included. Sodium 140 136 - 145 meq/L [facility] Potassium 4.4 3.5 - 5.1 meq/L [facility] Chloride 109 (H) 98 - 107 meq/L [facility] CO2 25 22 - 29 meq/L [facility] BUN 15 7 - 21 mg/dL [facility] Creatinine 0.88 0.57 - 1.25 mg/dL [facility] Glucose 115 (H) 70 - 105 mg/dL [facility] Calcium 9.0 8.4 - 10.2 mg/dL [facility] EGFR 63Comment: ESTIMATED GFR IS mL/min/1.73 sq m [facility] NOT ACCURATE CREATININE [facility] CLEARANCE IN PREDICTING GLOMERULAR FILTRATION RATE. ESTIMATED GFR IS NOT APPLICABLE FOR DIALYSIS PATIENTS. Specimen Blood - Arm, Left Performing Organization Address [facility]ode Phone Number [facility] [address] [place] [address] [facility] * ECG 12 lead (11/30/2017 12:12 PM CDT) Only the most recent of 2 results within the time period is included. Narrative Performed At Ventricular Rate 57 BPM [facility] Atrial Rate 57 BPM P-R Interval 142 ms QRS Duration 70 ms Q-T Interval 416 ms QTC Calculation(Bazett) 404 ms P Bowers 41 degrees R Bowers -15 degrees T Bowers 27 degrees Sinus bradycardia Cannot rule out Anterior infarct , age undetermined Abnormal ECG When compared with ECG of 28-NOV-2017 11:50, Voltage criteria for LVH are no longer seen Confirmed by MD NEGRA, DUC ([id number]) on 12/03/2017 7:09:56 AM Procedure Note Interface, External Ris In - 12/03/2017 7:10 AM CDT Ventricular Rate 57 BPM Atrial Rate 57 BPM P-R Interval 142 ms QRS Duration 70 ms Q-T Interval 416 ms QTC Calculation(Bazett) 404 ms P Bowers 41 degrees R Bowers -15 degrees T Bowers 27 degrees Sinus bradycardia Cannot rule out Anterior infarct , age undetermined Abnormal ECG When compared with ECG of 28-NOV-2017 11:50, Voltage criteria for LVH are no longer seen Confirmed by MD NEGRA, DUC ([id number]) on 12/03/2017 7:09:56 AM Performing Organization Address City/[facility] Phone Number [facility] * Troponin I (11/30/2017 10:52 AM CDT) Only the most recent of 3 results within the time period is included. Troponin I <0.01 0.00 - 0.03 ng/mL [facility] Specimen Blood Narrative Performed At Troponin I (TnI) levels must be interpreted in the context of the presenting [facility] symptoms and the clinical findings. Elevated TnI levels indicate myocardial [facility] CENTER damage, but are not specific for ischemic heart disease. Elevated TnI levels are seen in patients with other cardiac conditions (including myocarditis and congestive heart failure), and slight TnI elevations occur in patients with other conditions, including sepsis, renal failure, acidosis, acute neurological disease, and persistent tachyarrhythmia. Performing Organization Address [facility] [place] [address] [phone] [place] [address] * Phosphorus (11/29/2017 6:04 AM CDT) Phosphorus 2.8 2.3 - 4.7 mg/dL [facility] Specimen Blood - Arm, Left Performing Organization Address [facility] Phone Number [place] [phone] [place] [address] [facility] * Magnesium (11/29/2017 6:04 AM CDT) Only the most recent of 2 results within the time period is included. Magnesium 2.2 1.6 - 2.6 mg/dL [facility] Specimen Blood - Arm, Left Performing Organization Address [facility]ode Phone Number [facility] [address] [place] [address] [facility] * Hemoglobin A1c (11/29/2017 6:04 AM CDT) Hemoglobin A1C 6.4 (H) 4.3 - 6.1 % [facility] Specimen Blood - Arm, Left Performing Organization Address [facility] Phone Number [facility] [address] [place] [address] [facility] * Lipid panel (11/29/2017 6:04 AM CDT) Triglycerides 89 mg/dL [facility] Cholesterol 130 mg/dL [facility] HDL 42 mg/dL [facility] LDL Calculated 70 mg/dL [facility] Specimen Blood - Arm, Left Narrative Performed At Triglyceride Reference Range: [facility] Low Risk <150 [facility] [id number] High Risk 200-499 Very High Risk>=500 Cholesterol Reference Range: Low Risk <200 [id number] High Risk>240 HDL Cholesterol Reference Range: Low Risk >=60 High Risk <40 LDL Cholesterol Reference Range: Optimal<100 Near [id number] Very High >=190 Performing Organization Address City/[facility] Phone Number [facility] [address] [place] [address] [facility] * MR abdomen without IV contrast MRCP (11/29/2017 4:38 AM CDT) Narrative Performed At FINAL REPORT [employer] History: Abnormal liver function tests Comparison: None [...] MD Report Verified Date/Time:11/29/2017 07:58:38 Reading Location: [facility] Diagnostic Imaging Reading Room - [place] [address] Procedure Note Interface, External Ris In - [...] Report Verified Date/Time: 11/29/2017 07:58:38 Reading Location: [facility] Diagnostic Imaging Reading Room - [place] [address] Performing Organization Address City/State/Zipcode Phone Number GE [facility] * Urinalysis w/ Microscopic (11/29/2017 2:08 AM CDT) Color, UA Yellow [facility] Clarity, UA Clear [facility] Specific [place], UA 1.025 1.001 - 1.035 [facility] pH, UA 6.0 5.0 - 8.0 [facility] Protein, UA 10 mg/dL (A) Negative [facility] Glucose, UA Negative Negative [facility] Ketones, UA Negative Negative [facility] Bilirubin, UA Negative Negative [facility] Blood, UA Negative Negative [facility] Nitrite, UA Negative Negative [facility] Leukocytes, UA Negative Negative [facility] Urobilinogen, UA 0.2 0.2 - 1.0 mg/dL [facility] RBC, UA 1 /HPF [facility] WBC, UA 1 /HPF [facility] Specimen Source Urine, Voided [facility] Specimen Urine - Urine, Voided Performing Organization Address City/[facility]/Zipcode Phone Number [facility] [address] [place] [address] [facility] [place] * Creatine Kinase (CK), Total and MB (11/29/2017 12:15 AM CDT) Total CK 125 29 - 200 U/L [facility] CK-MB 0.8 0.0 - 6.6 ng/mL [facility] MB Relative Index 0.6 % [facility] Specimen Blood - Arm, Left Narrative Performed At CK-MB Reference Range: [facility] <6.7Normal [facility] 6.7-10.0Borderline >10.0 Abnormal Performing Organization Address City/State/Zipcode Phone Number [facility] [address] [place] [address] MED[facility]ENTER * US abdomen complete (11/28/2017 10:28 PM CDT) Narrative Performed At FINAL REPORT [employer] [facility] INDICATION: abdominal pain COMPARISON: Correlation with contrast-enhanced [...] MD Report Verified Date/Time:11/28/2017 22:52:22 Reading Location: [facility] B1 [id number] CT Body Reading Room Procedure Note [...] Report Verified Date/Time: 11/28/2017 22:52:22 Reading Location: [address] Body Reading Room Performing Organization Address City/State/Zipcode Phone Number [employer] * XR abdomen / KUB 1 view (11/28/2017 8:20 PM CDT) Narrative Performed At FINAL REPORT [employer] CLINICAL HISTORY: Abdominal pain COMPARISON: None. Correlation [...] There is no acute bony abnormality. Signed: José Luis Ruff MD Report Verified Date/Time:11/28/2017 20:30:41 Reading Location: [address] Reading Room Procedure Note Interface, External [...] There is no acute bony abnormality. Signed: José Luis Ruff MD Report Verified Date/Time: 11/28/2017 20:30:41 Reading Location: [address] Reading Room Performing Organization Address City/State/Zipcode Phone Number [facility] * ED ECG Interpretation (11/28/2017 2:14 PM CDT) Narrative Performed At Jose Talavera MD 11/28/20172:14 PM ECG/EKG Interpretation Date/Time: 11/28/2017 11:51 AM Performed by: JOSE TALAVERA Authorized by: JOSE TALAVERA The ECG was interpreted by ED physician. The ECG is interpreted as sinus rhythm. Rate is normal rate. Other findings include: LVH. Clinical Impression: non-specific ECG * CT abdomen/pelvis with IV contrast (11/28/2017 1:30 PM CDT) Narrative Performed At FINAL REPORT [employer] HISTORY : Abdominal pain, unspecified abdominal pain [...] MD Report Verified Date/Time:11/28/2017 13:46:55 Reading Location: [facility] Diagnostic Imaging Reading Room - [place] [address] Procedure Note Interface, External Ris In - [...] Report Verified Date/Time: 11/28/2017 13:46:55 Reading Location: [facility] Diagnostic Imaging Reading Room - [place] [address] Performing Organization Address City/State/Zipcode Phone Number [employer] [facility] * Blood culture (11/28/2017 12:30 PM CDT) Only the most recent of 2 results within the time period is included. Result No growth in 5 days [facility] Specimen Blood - Arm, Right Performing Organization Address City/State/Zipcode Phone Number [facility] [address] [place] [address] MEDICAL CENTER * Rapid Troponin I (11/28/2017 12:18 PM CDT) Rapid Troponin I <0.05 <0.05 ng/mL [facility], [facility] [place] Specimen Blood Performing Organization Address City/[facility] Phone Number [facility] [address] [place] [address] [facility], [facility] [place] * Rapid CK-MB (11/28/2017 12:18 PM CDT) Rapid CKMB 1.3 0.0 - 4.3 ng/mL [facility] [place] Specimen Blood Performing Organization Address [facility] Phone Number [facility] [address] [place], [place] [phone] [facility], [facility] * PT/PTT (11/28/2017 12:18 PM CDT) Protime 10.1 9.8 - 12.0 seconds [facility] [place] INR 0.9 <=5.9 [facility] [place] PTT 25.6 (L) 25.8 - 34.5 seconds [facility] [place] Specimen Blood Narrative Performed At RECOMMENDED COUMADIN/WARFARIN INR THERAPY RANGES [facility] STANDARD DOSE: 2.0 - 3.0 Includes: PROPHYLAXIS for venous thrombosis, [facility] MEDICAL systemic embolization; TREATMENT for venous thrombosis and/or pulmonary embolus. [facility] HIGH RISK: Target INR is 2.5-3.5 for patients with mechanical heart valves. EM[facility]Y C[facility], [facility] Performing Organization Address City/[facility] Phone Number [facility] [address] [place], [place] [phone] [facility], [facility] [place] * Lactic acid, venous, whole blood (11/28/2017 12:18 PM CDT) Lactate, Venous 1.2 0.5 - 2.2 mmol/L [facility] Specimen Blood Narrative Performed At Effective 12/28/2015: Units/Reference Range Change [facility] New: 0.5-2.2 mmol/LPrevious: 5-18 mg/dL [facility] Performing Organization Address [facility] Phone Number [address] [phone] [facility] * B-type Natriuretic Factor (BNP) (11/28/2017 12:18 PM CDT) BNP 22 0 - 100 pg/mL [facility] Specimen Blood Performing Organization Address [facility] Phone Number [address] [phone] [facility] * Cardiac Enzymes - CPK (11/28/2017 12:18 PM CDT) Total CK 166 25 - 235 U/L [facility] Specimen Blood Performing Organization Address City/[facility] Phone Number [address] [address] [address] [facility] * XR chest 2 views (11/28/2017 12:08 PM CDT) Narrative Performed At [facility] Chest two views compared to February 20, 2005 Discussion: Heart, lungs, bones, soft tissues unremarkable except for right shoulder postoperative changes. No effusion or pneumothorax. Signed: Michelle Suarez MD Report Verified Date/Time:11/28/2017 12:20:05 Reading Location: [facility] Reading Room Procedure Note Interface, External Ris In - 11/28/2017 12:22 PM CDT FINAL REPORT Chest two views compared to February 20, 2005 Discussion: Heart, lungs, bones, soft tissues unremarkable except for right shoulder postoperative changes. No effusion or pneumothorax. Signed: Michelle Suarez MD Report Verified Date/Time: 11/28/2017 12:20:05 Reading Location: [facility] Reading [facility] Performing Organization Address City/State/Zipcode Phone Number GE RIS after 10/10/2017 Insurance Payer Benefit Subscriber ID Type Phone Address Plan / Group [facility] xxxxxxxxxxx MEDICARE [place] ([place] [address] Advance Directives For more information, please contact: [facility] [address] [place] [id number] Date Inactivated Comments Code Status Date Activated 12/01/2017 6:44 PM Full Code 11/28/2017 8:07 PM This code status was determined by: Patient
--- OUTSIDE RECORDS SUMMARY | 2018-10-11 13:35 | XMS REPORT | Continuity of Care Document ---
Author Author [facility] Interface Address Unknown Phone Unavailable Problems Problem Status Onset Date Classification Date Reported Comments Source TIA, SMALL RESIDUAL L FRONTAL TEMPORAL S Active 10/22/2016 [facility] TRAUMATIC INTRACEREBRAL HEMORRHAGE WITH Active 10/06/2016 [facility] SAH Active 10/06/2016 [facility] BDDC/789.64 Active 02/01/2015 [facility] 787.33 780.94 Active 02/01/2015 [facility] Discharge Diagnosis: Acute neck pain 01/14/2015 01/17/2015 [facility] Discharge Diagnosis: Acute headache 01/14/2015 01/17/2015 [facility] HEADACHE Active 01/14/2015 [facility] Discharge Diagnosis: Diarrhea 01/11/2015 01/14/2015 [facility] Discharge Diagnosis: Abdominal pain 01/11/2015 01/14/2015 [facility] Discharge Diagnosis: Steatosis of liver 01/11/2015 01/14/2015 [facility] UPPER STOMACH PAIN Active 01/11/2015 [facility] BDDC-GERD Active 10/21/2014 [facility] DDC-3 MONTH F/U VISIT Active 10/15/2014 [facility] BDDC - GERD Active 10/13/2014 [facility] DYSPHAGIA Active 10/07/2014 [facility] FLANK PAIN Active 04/29/2014 [facility] ACUTE PANCREATITIS DUODENAL DIVERTICULUM Active 04/29/2014 [facility] [address]63, 13622, LUMBAR SPONDYLOSIS WITH OU Active 04/09/2014 [facility] 64813, LUMBAR RADICULOPATHY Active 03/22/2014 [facility] 14048--YPCIXG RADICULOPATHY Active 02/24/2014 [facility] Family history of cancer of colon<sup>1</sup> Active 02/22/2014 Problem 10/26/2016 Data migrated from [employer] on 04/19/15. [facility] Family history of malignant neoplasm of breast<sup>2</sup> Active 02/22/2014 Problem 10/26/2016 Data migrated from [employer] on 04/19/15. [facility] Lumbar radiculopathy<sup>4</sup> Active 02/22/2014 Problem 10/26/2016 Data migrated from [employer] on 04/19/15. [facility] Low back pain<sup>3</sup> Active 01/20/2014 Problem 10/26/2016 Data migrated from [employer] on 04/19/15. [facility] Spinal stenosis of lumbar region<sup>5</sup> Active 01/20/2014 Problem 10/26/2016 Data migrated from [employer] on 04/19/15. [facility] PRIMARY THUNDERCLAP HEADACHE Active 10/12/2013 [facility] BDDC/ V76.51 COLORECTAL CANCER SCREENING Active 07/31/2013 [facility] DIPLOPIA Active 07/04/2012 [facility] F/U Active 07/04/2012 [facility] FU Active 06/24/2012 [facility] ROTATOR CUFF TEAR/SLAP/IMPINGEMENT Active 11/01/2011 [facility] 719.41 - JOINT PAIN-SHLD Active 09/13/2011 [facility] [place] Fracture Resolved Problem 09/11/2012 [facility], [facility] [place] Pain Active Problem 09/11/2012 [facility] [place] Fracture Resolved Problem 03/12/2013 [facility], [facility] [place] Pain Active Problem 03/12/2013 [facility] [place] Fracture Resolved Problem 03/19/2015 [facility] [place],[facility] Pain Active Problem 10/26/2016 [facility] [place],[facility] Diabetes mellitus Active Problem 10/26/2016 [facility], [facility] [place] Hyperlipidemia Active Problem 10/26/2016 [facility], [facility] [place] Hypertension Active Problem 10/26/2016 [facility], [facility] [place] Spondylosis Active Problem 10/26/2016 [facility], [facility] [place] LEFT SHOULDER PAIN Active [facility] LT RC IMPINGEMENT/CERVICAL RADICULOPATHY Active [facility] L SHDLR PAIN Active [facility] TRAUM HEMOR CEREB, W LOC OF UNSP DURATIO Active [facility] TRAUM SUBRAC HEM W LOC OF UNSP DURATION, Active [facility] OTHER SPECIFIED DISORDERS OF ARTERIES AN Active [facility] UNSPECIFIED CONVULSIONS Active [facility] Medications Medication Details Route Status Patient Instructions Ordering Provider Order Date Source Levetiracetam 1000 MG Oral Tablet [Keppra] 1,000 mg=1 tab, PO, Q12H, # 120 tab, 4 Refill(s) Active 10/23/2016 [facility] Lisinopril 5 mg, Route: PO, Drug form: TAB, Daily, Dosing Weight 90.909, kg, Start date: 10/23/16 9:00:00 GUT DROPPER, Duration: 30 day, Stop date: 11/21/16 9:00:00 CDT No Longer Active 10/23/2016 [facility] Streptococcus pneumoniae serotype 1 capsular antigen diphtheria [id number] protein conjugate vaccine / Streptococcus pneumoniae serotype 14 capsular antigen diphtheria [id number] protein conjugate vaccine / Streptococcus pneumoniae serotype 18C capsular antigen d 0.5 mL, Route: IM, Drug Form: INJ, Daily, Start date: 10/23/16 9:00:00 GUT DROPPER, Duration: 1 doses or times, Stop date: 10/23/16 9:00:00 CSTNotes: Lightly roll vial (DO NOT SHAKE) before administration. (Same as: Prevnar 13) Inactive 10/23/2016 [facility] Flomax 0.4 mg, 1 cap, Route: PO, Drug form: CAP, After Breakfast, Dosing Weight 90.909, kg, Start date: 10/23/16 8:30:00 GUT DROPPER, Duration: 30 day, Stop date: 11/21/16 8:30:00 CDT Inactive 10/23/2016 [facility] heparin sodium, porcine 2500 UNT/ML Injectable Solution 5,000 unit, 1 mL, Route: SUB-Q, Drug form: INJ, Q8H, Dosing Weight 63.636, kg, Start date: 10/23/16 8:00:00 GUT DROPPER, Duration: 30 day, Stop date: 11/22/16 0:00:00 CDTNotes: porcine heparin Inactive 10/23/2016 [facility] Levetiracetam 1000 MG Oral Tablet [Keppra] 1,000 mg, 2 tab, Route: PO, Drug form: TAB, Q12H, Dosing Weight 63.636, kg, Priority: NOW, Start date: 10/23/16 7:46:00 GUT DROPPER, Duration: 30 day, Stop date: 11/21/16 21:00:00 CDTNotes: (Same as:Keppra) Inactive 10/23/2016 [facility] Simvastatin 40 mg, 1 tab, Route: PO, Drug form: TAB, Bedtime, Dosing Weight 90.909, kg, Start date: 10/22/16 21:00:00 GUT DROPPER, Duration: 30 day, Stop date: 11/20/16 21:00:00 CDTNotes: (Same as: Zocor) No Longer Active 10/23/2016 [facility] Saline Flush 0.9% 10 ml, Route: IVP, Drug Form: INJ, Dosing Weight 90.909, kg, Q12H, Start date: 10/22/16 21:00:00 GUT DROPPER, Duration: 30 day, Stop date: 11/21/16 9:00:00 CDTNotes: (Same as: BD Posiflush) No Longer Active 10/23/2016 [facility] Levetiracetam 500 mg, Route: IV, Q12H, Dosing Weight 90.909, kg, Start date: 10/22/16 21:00:00 GUT DROPPER, Duration: 7 day, Stop date: 10/29/16 9:00:00 CSTNotes: Same as Keppra Mix with 100 mL NS, LR or D5W MEDICATION WASTE Product Size: 500 mg Product Wasted: _0__ mg No Longer Active 10/23/2016 [facility] Docusate 100 mg, 1 cap, Route: PO, Drug form: CAP, Q12H, Dosing Weight 90.909, kg, Start date: 10/22/16 21:00:00 GUT DROPPER, Duration: 30 day, Stop date: 11/21/16 9:00:00 CDTNotes: (Same as: Colace) (Do Not Crush) No Longer Active 10/23/2016 [facility] sennosides, FCI 8.6 mg, 1 tab, Route: PO, Drug Form: TAB, Dosing Weight 90.909, kg, Q12H, Start date: 10/22/16 21:00:00 GUT DROPPER, Duration: 30 day, Stop date: 11/21/16 9:00:00 CDTNotes: (Same as: Senokot) No Longer Active 10/23/2016 [facility] Insulin regular 1 unit, 0.01 mL, Route: SUB-Q, Drug form: SOLN, Sliding Scale, Dosing Weight 90.909, kg, PRN Blood Glucose Results, Start date: 10/22/16 18:31:00 GUT DROPPER, Duration: 30 day, Stop date: 11/21/16 19:30:00 C DTNotes: (Same as: Humulin R) Roll in palms of hands gently; Do not shake vigorously. "single patient use only" (Restricted to patients requiring a dose > 60 units) WASTE: F/P - Black; E - Municipal Trash Bin Stable for 28 days at room temperature Expires in days from Date No Longer Active 10/23/2016 [facility] Dextrose 50% Syringe 25 gm, 50 mL, Route: IVP, Drug Form: INJ, Dosing Weight 90.909, kg, PRN, PRN Blood Glucose Results, Start date: 10/22/16 18:31:00 GUT DROPPER, Duration: 30 day, Stop date: 11/21/16 19:30:00 CDT No Longer Active 10/23/2016 [facility] Glucagon 1 mg, Route: IM, Drug form: PDR/INJ, PRN, Dosing Weight 90.909, kg, PRN Blood Glucose Results, Start date: 10/22/16 18:31:00 GUT DROPPER, Duration: 30 day, Stop date: 11/21/16 19:30:00 CDT No Longer Active 10/23/2016 [facility] Saline Flush 0.9% 10 ml, Route: IVP, Drug Form: INJ, Dosing Weight 90.909, kg, PRN, PRN Line Flush, Start date: 10/22/16 17:48:00 GUT DROPPER, Duration: 30 day, Stop date: 11/21/16 18:47:00 CDTNotes: (Same as: BD Posiflush) No Longer Active 10/22/2016 [facility] Acetaminophen 650 mg, 2 tab, Route: PO, Drug form: TAB, Q4H, Dosing Weight 90.909, kg, PRN Pain 1-3/Temp > 99.5 F, Start date: 10/22/16 17:48:00 GUT DROPPER, Duration: 30 day, Stop date: 11/21/16 17:47:00 CDTNotes: Do not exceed 4 gm/day. (Same as: Tylenol) No Longer Active 10/22/2016 [facility] Acetaminophen 325 MG / Hydrocodone Bitartrate 5 MG Oral Tablet 1 tab, Route: PO, Drug Form: TAB, Dosing Weight 90.909, kg, Q4H, PRN Pain Score 1-3, Start date: 10/22/16 17:48:00 GUT DROPPER, Duration: 30 day, Stop date: 11/21/16 17:47:00 CDTNotes: (Same as: [place] 325/5) Do not exceed 4gm/day of acetaminophen. No Longer Active 10/22/2016 [facility] Acetaminophen 325 MG / Hydrocodone Bitartrate 10 MG Oral Tablet 1 tab, Route: PO, Drug Form: TAB, Dosing Weight 90.909, kg, Q4H, PRN Pain Score 4-6, Start date: 10/22/16 17:48:00 GUT DROPPER, Duration: 30 day, Stop date: 11/21/16 17:47:00 CDTNotes: Do not exceed 4gm/day of acetaminophen. (Same as: [place] 325/10) No Longer Active 10/22/2016 [facility] Bisacodyl 10 mg, 1 supp, Route: NM, Drug form: SUPP, Daily, Dosing Weight 90.909, kg, PRN Constipation, Start date: 10/22/16 17:48:00 GUT DROPPER, Duration: 30 day, Stop date: 11/21/16 17:47:00 CDTNotes: (Same As: Dulcolax, Bisco-Lax) No Longer Active 10/22/2016 [facility] Ondansetron 4 mg, 2 mL, Route: IVP, Drug form: INJ, Q8H, Dosing Weight 90.909, kg, PRN Nausea & Vomiting, Start date: 10/22/16 17:48:00 GUT DROPPER, Duration: 30 day, Stop date: 11/21/16 17:47:00 CDTNotes: (Same as: Crow) MEDICATION WASTE Product Size: 4 mg Product Wasted: _0__ mg No Longer Active 10/22/2016 [facility] Levetiracetam 1,000 mg, Route: IVPB, ONCE, Dosing Weight 90.909, kg, Start date: 10/22/16 17:48:00 GUT DROPPER, Stop date: 10/22/16 17:48:00 GUT DROPPER Inactive 10/22/2016 [facility] Sodium Chloride 0.154 MEQ/ML Injectable Solution 1,000 mL, Rate: 50 ml/hr, Infuse over: 20 hr, Route: IV, Dosing Weight 90.909 kg, Total Volume: 1,000, Start date: 10/22/16 17:48:00 GUT DROPPER, Duration: 30 day, Stop date: 11/21/16 17:47:00 CDT No Longer Active 10/22/2016 [facility] acetaminophen 325 mg oral tablet 650 mg=2 tab, PO, Q4H, PRN Pain 1-3/Temp > 99.5 F, 0 Refill(s) Active 10/12/2016 [facility] tramadol hydrochloride 50 MG Oral Tablet 50 mg=1 tab, PO, Q4H, PRN Pain Score 4-6, 0 Refill(s) Active 10/12/2016 [facility] tamsulosin 0.4 mg oral capsule 0.4 mg=1 cap, PO, After Breakfast, 0 Refill(s) Active 10/12/2016 [facility] Levetiracetam 500 MG Oral Tablet [Keppra] 500 mg=1 tab, PO, Q12H, Take twice a day, last dose will be PM dose on 10/13/16, this will complete a week course., # 3 tab, 0 Refill(s) Active 10/12/2016 [facility] Ibuprofen 400 MG Oral Tablet 400 mg=1 tab, PO, Q8H, 0 Refill(s) Active 10/12/2016 [facility] Docusate Sodium 100 MG Oral Capsule 100 mg=1 cap, PO, BID, # 20 cap, 0 Refill(s) Active 10/12/2016 [facility] Insulin regular 3 unit, 0.03 mL, Route: SUB-Q, Drug form: SOLN, Bedtime, Dosing Weight 76.9, kg, PRN Blood Glucose Results, Start date: 10/12/16 9:23:00 GUT DROPPER, Duration: 30 day, Stop date: 11/11/16 9:22:00 CDTNotes: ( Same as: Humulin R) Roll in palms of hands gently; Do not shake vigorously. "single patient use only" (Restricted to patients requiring a dose > 60 units) WASTE: F/P - Black; E - Municipal Trash Bin Stable for 28 days at room temperature Expires in days from Date Inactive 10/12/2016 [facility] Dextrose 50% Syringe 12.5 gm, 25 mL, Route: IVP, Drug Form: INJ, Dosing Weight 76.9, kg, PRN, PRN Blood Glucose Results, Start date: 10/12/16 9:23:00 GUT DROPPER, Duration: 30 day, Stop date: 11/11/16 10:22:00 CDT Inactive 10/12/2016 [facility] Glucagon 1 mg, Route: IM, Drug form: PDR/INJ, PRN, Dosing Weight 76.9, kg, PRN Blood Glucose Results, Start date: 10/12/16 9:23:00 GUT DROPPER, Duration: 30 day, Stop date: 11/11/16 10:22:00 CDT Inactive 10/12/2016 [facility] insulin, isophane 5 unit, 0.05 mL, Route: SUB-Q, Drug form: INJ, BID, Dosing Weight 76.9, kg, Priority: NOW, Start date: 10/12/16 9:23:00 GUT DROPPER, Duration: 30 day, Stop date: 11/11/16 9:00:00 CDTNotes: Roll in palms of h ands gently; Do not shake vigorously. (Same as: Humulin N) Do not hold insulin without contacting prescriber WASTE: F/P - Black; E - Municipal Trash Bin Stable for 28 days at room temperature Expires in days from Date Inactive 10/12/2016 [facility] Flomax 0.4 mg, 1 cap, Route: PO, Drug form: CAP, After Breakfast, Dosing Weight 76.9, kg, Start date: 10/12/16 8:30:00 GUT DROPPER, Duration: 30 day, Stop date: 11/10/16 8:30:00 CDTNotes: (Same As: Flomax) "Do Not Crush" Inactive 10/12/2016 [facility] potassium chloride 20 mEq oral tablet, extended release 40 mEq, 2 tab, Route: PO, Drug form: ERTAB, Q2H, Dosing Weight 76.9, kg, Start date: 10/12/16 8:00:00 GUT DROPPER, Duration: 2 doses or times, Stop date: 10/12/16 10:00:00 CSTNotes: (Same as: K-Dur 20) "Do Not Crush" With food and full glass of water Inactive 10/12/2016 [facility] Ibuprofen 400 mg, 1 tab, Route: PO, Drug form: TAB, Q8H, Dosing Weight 76.9, kg, PRN Pain Score 1-3, Start date: 10/12/16 8:00:00 GUT DROPPER, Duration: 30 day, Stop date: 11/11/16 0:00:00 CDTNotes: (Same as: Motrin) "Do Not Crush" Give with food. Inactive 10/12/2016 [facility] Reglan 10 mg, 2 mL, Route: IVP, Drug form: INJ, Q6H, Dosing Weight 76.9, kg, PRN Nausea, Start date: 10/09/16 9:09:00 GUT DROPPER, Duration: 30 day, Stop date: 11/08/16 9:08:00 CDTNotes: (Same as: Reglan) No Longer Active 10/09/2016 [facility] Ondansetron 4 mg, 2 mL, Route: IVP, Drug form: INJ, Q4H, Dosing Weight 72.727, kg, PRN Nausea & Vomiting, Start date: 10/09/16 9:08:00 GUT DROPPER, Duration: 30 day, Stop date: 11/08/16 9:07:00 CDTNotes: (Same as: Zofran) MEDICATION WASTE Product Size: 4 mg Product Wasted: _0__ mg No Longer Active 10/09/2016 [facility] tramadol hydrochloride 50 MG Oral Tablet 50 mg, 1 tab, Route: PO, Drug form: TAB, Q4H, Dosing Weight 76.9, kg, PRN Pain Score 4-6, Start date: 10/09/16 4:24:00 GUT DROPPER, Duration: 30 day, Stop date: 11/08/16 4:23:00 CDTNotes: Not to exceed 400mg/day. (Same As: Ultram) No Longer Active 10/09/2016 [facility] Insulin regular 3 unit, 0.03 mL, Route: SUB-Q, Drug form: SOLN, Q6Hnow, Dosing Weight 76.9, kg, Start date: 10/08/16 10:00:00 GUT DROPPER, Duration: 30 day, Stop date: 11/07/16 4:00:00 CDT No Longer Active 10/08/2016 [facility] potassium phosphate + sodium chloride 0.9% INJ 250 mL 18 mmol, 6 mL, Route: IVPB, ONCE, Dosing Weight 76.9, kg, Priority: NOW, Start date: 10/08/16 5:17:00 GUT DROPPER, Stop date: 10/08/16 5:17:00 CSTNotes: (Same as: K Phosphate.) 1 mMol phoshate has 1.47 mEq potassium Infuse over 4 hours Inactive 10/08/2016 [facility] sennosides, FCI 26.4 mg, 15 ml, Route: PO, Drug Form: SYRP, Dosing Weight 76.9, kg, Q12H, Start date: 10/07/16 21:00:00 GUT DROPPER, Duration: 30 day, Stop date: 11/06/16 9:00:00 CDTNotes: (Same as: Senokot) No Longer Active 10/08/2016 [facility] docusate sodium 150 mg/15 mL oral liquid 100 mg, 10 mL, Route: PO, Drug form: LIQ, Q12H, Dosing Weight 76.9, kg, Start date: 10/07/16 21:00:00 GUT DROPPER, Duration: 30 day, Stop date: 11/06/16 9:00:00 CDTNotes: (Same as: Colace) No Longer Active 10/08/2016 [facility] multivitamin with minerals 1 tab, Route: PO, Drug Form: TAB, Dosing Weight 76.9, kg, Lunch, Start date: 10/07/16 12:00:00 GUT DROPPER, Duration: 30 day, Stop date: 11/05/16 12:00:00 CDTNotes: (Same as:Thera-M, Theragran-M) WASTE: F/P - Black; E - Municipal Trash Bin Give with food. No Longer Active 10/07/2016 [facility] Ceftriaxone 1 gm, Route: IVPB, Drug form: PDR/INJ, [id number], Dosing Weight 76.9, kg, Start date: 10/07/16 11:00:00 GUT DROPPER, Duration: 3 day, Stop date: 10/09/16 11:00:00 CSTNotes: (Same As: Rocephin). Use with 100 mL NS and infuse over 30 min MEDICATION WASTE Product Size: 1000 mg Product Wasted: ___ mg No Longer Active 10/07/2016 [facility] Levetiracetam 500 MG Oral Tablet [Keppra] 500 mg, 1 tab, Route: PO, Drug form: TAB, Q12H, Dosing Weight 76.9, kg, Start date: 10/07/16 9:00:00 GUT DROPPER, Stop date: 10/13/16 21:00:00 CSTNotes: (Same as:Keppra) No Longer Active 10/07/2016 [facility] heparin sodium, porcine 2500 UNT/ML Injectable Solution 5,000 unit, 1 mL, Route: SUB-Q, Drug form: INJ, Q8H, Dosing Weight 72.27, kg, Start date: 10/07/16 8:00:00 GUT DROPPER, Duration: 30 day, Stop date: 11/06/16 0:00:00 CDTNotes: porcine heparin No Longer Active 10/07/2016 [facility] Magnesium Sulfate 2 gm, 50 mL, Route: IVPB, Drug form: INJ, Q2H, Dosing Weight 76.9, kg, Total dose=4 gm, Start date: 10/07/16 8:00:00 GUT DROPPER, Duration: 2 doses or times, Stop date: 10/07/16 10:00:00 CSTNotes: WASTE: F/P - Sink; E - Municipal Trash Bin Inactive 10/07/2016 [facility] lansoprazole 30 mg, 10 mL, Route: NG, Drug form: SUSP, Before Breakfast, Dosing Weight 72.27, kg, Start date: 10/07/16 7:30:00 GUT DROPPER, Duration: 30 day, Stop date: 11/05/16 7:30:00 CDTNotes: Take 1 hour before or 2 hours after meal; Expires in 14 days. Shake well before use. (Same as:Prevacid) Compounded Product - formulation not commercially available No Longer Active 10/07/2016 [facility] Calcium Carbonate 1,000 mg, 2 tab, Route: PO, Drug form: CHEWTAB, ONCE, Dosing Weight 76.9, kg, Start date: 10/07/16 7:04:00 GUT DROPPER, Stop date: 10/07/16 7:04:00 CSTNotes: (Same As: Tums) Calcium Carbonate 500 wu=774 mg elemental calcium Dose= mg calcium carbonate ( mg elemental calcium) Inactive 10/07/2016 [facility] potassium phosphate-sodium phosphate 250 mg-280 mg-160 mg oral powder for reconstitution 2 pkt, Route: PO, Drug Form: PDR/REC, Dosing Weight 76.9, kg, ONCE, Start date: 10/07/16 7:03:00 GUT DROPPER, Stop date: 10/07/16 7:03:00 CSTNotes: (Same as: Phos-NaK) Each 1.5 gm pkt has 250mg phosphorous. Mix w/2.5oz water and stir. Inactive 10/07/2016 [facility] tramadol hydrochloride 50 MG Oral Tablet 50 mg, 1 tab, Route: PO, Drug form: TAB, Q6H, Dosing Weight 76.9, kg, PRN Pain Score 4-6, Start date: 10/07/16 7:00:00 GUT DROPPER, Duration: 30 day, Stop date: 11/06/16 6:59:00 CDTNotes: Not to exceed 400mg/day. (Same As: Ultram) No Longer Active 10/07/2016 [facility] Simvastatin 40 mg, 1 tab, Route: PO, Drug form: TAB, Bedtime, Dosing Weight 72.27, kg, Start date: 10/06/16 21:00:00 GUT DROPPER, Duration: 30 day, Stop date: 11/04/16 21:00:00 CDTNotes: (Same as: Zocor) No Longer Active 10/07/2016 [facility] Ofirmev 1,000 mg, 100 mL, Route: IV, Drug form: INJ, ONCE, Dosing Weight 72.27, kg, Start date: 10/06/16 13:12:00 GUT DROPPER, Stop date: 10/06/16 13:12:00 CSTNotes: Infuse over 15 minutes Do not exceed 4gm/day of edith taminophen MEDICATION WASTE Product Size: 1000 mg Product Wasted: _0__ mg Inactive 10/06/2016 [facility] Lisinopril 5 mg, 1 tab, Route: PO, Drug form: TAB, Daily, Dosing Weight 72.27, kg, Priority: NOW, Start date: 10/06/16 12:21:00 GUT DROPPER, Duration: 30 day, Stop date: 11/05/16 9:00:00 CDTNotes: (Same as: Prinivil Z estril) No Longer Active 10/06/2016 [facility] ceFAZolin + sodium chloride 0.9% INJ 100 mL 2 gm, Route: IVPB, ABXQ8H, Start date: 10/06/16 11:25:00 GUT DROPPER, Stop date: 10/07/16 6:50:00 CSTNotes: (Same As: Merna Pastranazonydia) MEDICATION WASTE Product Size: 1000 mg Product Wasted: ___ mg No Longer Active 10/06/2016 [facility] Insulin regular 9 unit, 0.09 mL, Route: SUB-Q, Drug form: SOLN, Sliding Scale, Dosing Weight 72.27, kg, PRN Blood Glucose Results, Start date: 10/06/16 10:45:00 GUT DROPPER, Duration: 30 day, Stop date: 11/05/16 11:44:00 CD TNotes: (Same as: Humulin R) Roll in palms of hands gently; Do not shake vigorously. "single patient use only" (Restricted to patients requiring a dose > 60 units) WASTE: F/P - Black; E - Municipal Trash Bin Stable for 28 days at room temperature Expires in days from Date No Longer Active 10/06/2016 [facility] Dextrose 50% Syringe 12.5 gm, 25 mL, Route: IVP, Drug Form: INJ, Dosing Weight 72.27, kg, PRN, PRN Blood Glucose Results, Start date: 10/06/16 10:45:00 GUT DROPPER, Duration: 30 day, Stop date: 11/05/16 11:44:00 CDT No Longer Active 10/06/2016 [facility] Glucagon 1 mg, Route: IM, Drug form: PDR/INJ, PRN, Dosing Weight 72.27, kg, PRN Blood Glucose Results, Start date: 10/06/16 10:45:00 GUT DROPPER, Duration: 30 day, Stop date: 11/05/16 11:44:00 CDT No Longer Active 10/06/2016 [facility] Keppra 500 mg, Route: IVPB, Drug form: INJ, Q12H, Dosing Weight 72.27, kg, Priority: NOW, Start date: 10/06/16 9:46:00 GUT DROPPER, Duration: 30 day, Stop date: 11/05/16 9:00:00 CDTNotes: Same as Keppra Mix with 100 mL NS, LR or D5W MEDICATION WASTE Product Size: 500 mg Product Wasted: ___ mg No Longer Active 10/06/2016 [facility] Sodium Chloride 0.154 MEQ/ML Injectable Solution 500 mL, 500 ml/hr, Infuse Over: 1 hr, Route: IV, 500, Drug form: INJ, ONCE, Priority: STAT, Dosing Weight 72.27 kg, Start date: 10/06/16 9:46:00 GUT DROPPER, Duration: 1 doses or times, Stop date: 10/06/16 9:46:00 GUT DROPPER Inactive 10/06/2016 [facility] Saline Flush 0.9% 10 ml, Route: IVP, Drug Form: INJ, Dosing Weight 72.727, kg, Q12H, Start date: 10/06/16 9:00:00 GUT DROPPER, Duration: 30 day, Stop date: 11/04/16 21:00:00 CDTNotes: Same as: BD Posiflush Sterile No Longer Active 10/06/2016 [facility] Levetiracetam 500 mg, 1 tab, Route: PO, Drug form: TAB, Q12H, Dosing Weight 72.727, kg, Start date: 10/06/16 9:00:00 GUT DROPPER, Duration: 7 day, Stop date: 10/12/16 21:00:00 CSTNotes: (Same as:Keppra) Inactive 10/06/2016 [facility] Famotidine 20 mg, 2 mL, Route: IVP, Drug form: INJ, Q12H, Dosing Weight 72.727, kg, Start date: 10/06/16 9:00:00 GUT DROPPER, Duration: 30 day, Stop date: 11/04/16 21:00:00 CDTNotes: (Same as: Pepcid) Can be dilute in 5-10cc NS IVP: Slow IV push over at least 2 minutes. Inactive 10/06/2016 [facility] Docusate 100 mg, 1 cap, Route: PO, Drug form: CAP, Q12H, Dosing Weight 72.727, kg, Start date: 10/06/16 9:00:00 GUT DROPPER, Duration: 30 day, Stop date: 11/04/16 21:00:00 CDTNotes: (Same as: Colace) (Do Not Crush) No Longer Active 10/06/2016 [facility] sennosides, FCI 8.6 mg, 1 tab, Route: PO, Drug Form: TAB, Dosing Weight 72.727, kg, Q12H, Start date: 10/06/16 9:00:00 GUT DROPPER, Duration: 30 day, Stop date: 11/04/16 21:00:00 CDTNotes: (Same as: Senokot) No Longer Active 10/06/2016 [facility] Calcium Gluconate 1 gm, 10 mL, Route: IVPB, PRN, Dosing Weight 72.27, kg, PRN Abnormal Lab Result, Start date: 10/06/16 8:29:00 GUT DROPPER, Duration: 30 day, Stop date: 11/05/16 9:28:00 CDT, FOR ICU USE ONLYNotes: WASTE: F/P - Sink; E - Municipal Trash Bin No Longer Active 10/06/2016 [facility] Magnesium Sulfate 2 gm, 50 mL, Route: IVPB, Drug form: INJ, PRN, Dosing Weight 72.27, kg, PRN Abnormal Lab Result, Start date: 10/06/16 8:29:00 GUT DROPPER, Duration: 30 day, Stop date: 11/05/16 9:28:00 CDT, FOR ICU USE ONLYNotes: WASTE: F/P - Sink; E - Municipal Trash Bin No Longer Active 10/06/2016 [facility] Calcium Carbonate 500 MG Chewable Tablet 500 mg, 1 tab, Route: PO, Drug form: CHEWTAB, PRN, Dosing Weight 72.27, kg, PRN Abnormal Lab Result, FOR ICU USE ONLY, Start date: 10/06/16 8:29:00 GUT DROPPER, Duration: 30 day, Stop date: 11/05/16 9:28:00 CDTNotes: (Same As: Tums) Calcium Carbonate 500 iv=037 mg elemental calcium Dose= mg calcium carbonate ( mg elemental calcium) No Longer Active 10/06/2016 [facility] Magnesium Oxide 800 mg, 2 tab, Route: PO, Drug form: TAB, PRN, Dosing Weight 72.27, kg, PRN Abnormal Lab Result, FOR ICU USE ONLY, Start date: 10/06/16 8:29:00 GUT DROPPER, Duration: 30 day, Stop date: 11/05/16 9:28:00 CDTN otes: (Same as: Mag-Ox 400) Magnesium oxide [id number] elemental magnesium Dose=____mg magnesium oxide (___mg elemental magnesium) No Longer Active 10/06/2016 [facility] potassium phosphate-sodium phosphate 250 mg-280 mg-160 mg oral powder for reconstitution 2 pkt, Route: PO, Drug Form: PDR/REC, Dosing Weight 72.27, kg, PRN, PRN Abnormal Lab Result, FOR ICU USE ONLY, Start date: 10/06/16 8:29:00 GUT DROPPER, Duration: 30 day, Stop date: 11/05/16 9:28:00 CDTNotes: (Same as: Phos-NaK) Each 1.5 gm pkt has 250mg phosphorous. Mix w/2.5oz water and stir. No Longer Active 10/06/2016 [facility] potassium phosphate + sodium chloride 0.9% INJ 250 mL 45 mmol, 15 mL, Route: IVPB, PRN, Dosing Weight 72.27, kg, PRN Abnormal Lab Result, Start date: 10/06/16 8:29:00 GUT DROPPER, Duration: 30 day, Stop date: 11/05/16 9:28:00 CDT, FOR ICU USE ONLYNotes: (Same as: K Phosphate.) 1 mMol phoshate has 1.47 mEq potassium Infuse over 4 hours No Longer Active 10/06/2016 [facility] potassium chloride 10 mEq, 50 mL, Route: IVPB, Drug form: INJ, PRN, Dosing Weight 72.27, kg, PRN Abnormal Lab Result, Via peripheral line, Start date: 10/06/16 8:29:00 GUT DROPPER, Duration: 30 day, Stop date: 11/05/16 9:28:00 CDT, FOR ICU USE ONLYNotes: (Same as: KCL) Infuse over 2 hours. No Longer Active 10/06/2016 [facility] sodium phosphate + sodium chloride 0.9% INJ 250 mL 15 mmol, 5 mL, Route: IVPB, PRN, Dosing Weight 72.27, kg, PRN Abnormal Lab Result, Start date: 10/06/16 8:29:00 GUT DROPPER, Duration: 30 day, Stop date: 11/05/16 9:28:00 CDT, FOR ICU USE ONLY No Longer Active 10/06/2016 [facility] Cefazolin 2 gm, Route: IVPB, Drug form: INJ, Q8H, Dosing Weight 72.727, kg, Start date: 10/06/16 8:00:00 GUT DROPPER, Duration: 24 hr, Stop date: 10/07/16 0:00:00 GUT DROPPER Inactive 10/06/2016 [facility] Hydromorphone 0.5 mg, 0.25 mL, Route: IVP, Drug form: INJ, Q5Min, Dosing Weight 72.727, kg, PRN Pain Score 7-10, Start date: 10/06/16 5:57:00 GUT DROPPER, Duration: 4 doses or times, Stop date: 10/07/16 0:00:00 CSTNotes: Same as: Dilaudid Inactive 10/06/2016 [facility] Flumazenil 0.2 mg, 2 mL, Route: IVP, Drug form: INJ, PRN, Dosing Weight 72.727, kg, PRN Benzodiazepine Reversal, Initial dose, Start date: 10/06/16 5:57:00 GUT DROPPER, Duration: 30 day, Stop date: 11/05/16 6:56:00 CDT Notes: (Same as: Romazicon) Inactive 10/06/2016 [facility] Naloxone 0.4 mg, 1 mL, Route: IVP, Drug form: INJ, Q2MIN, Dosing Weight 72.727, kg, PRN Narcotic Reversal, Start date: 10/06/16 5:57:00 GUT DROPPER, Duration: 8 doses or times, Stop date: Limited # of timesNotes: Same as Narcan Inactive 10/06/2016 [facility] Ondansetron 4 mg, 2 mL, Route: IVP, Drug form: INJ, ONCE, Dosing Weight 72.727, kg, PRN Nausea & Vomiting, Start date: 10/06/16 5:57:00 CSTNotes: (Same as: Zofran) MEDICATION WASTE Product Size: 4 mg Product Wasted: ___ mg Inactive 10/06/2016 [facility] Ancef + sodium chloride 0.9% INJ 100 mL 2 gm, Route: IVP, ONCE, Dosing Weight 72.727, kg, Start date: 10/06/16 3:25:00 GUT DROPPER, Stop date: 10/06/16 3:25:00 CSTNotes: (Same As: Ancef, Kefzol) MEDICATION WASTE Product Size: 1000 mg Product Wasted: ___ mg Inactive 10/06/2016 [facility] Dextrose 50% Syringe 25 gm, 50 mL, Route: IVP, Drug Form: INJ, Dosing Weight 72.727, kg, PRN, PRN Abnormal Lab Result, Start date: 10/06/16 2:56:00 GUT DROPPER, Duration: 30 day, Stop date: 11/05/16 3:55:00 CDT Inactive 10/06/2016 [facility] Regular Insulin, Human 100 UNT/ML Injectable Solution 7 unit, 0.07 mL, Route: SUB-Q, Drug form: SOLN, PRN, Dosing Weight 72.727, kg, PRN Abnormal Lab Result, Start date: 10/06/16 2:56:00 GUT DROPPER, Duration: 30 day, Stop date: 11/05/16 3:55:00 CDTNotes: (Same as: Humulin R) Roll in palms of hands gently; Do not shake vigorously. "single patient use only" (Restricted to patients requiring a dose > 60 units) WASTE: F/P - Black; E - Municipal Trash Bin Stable for 28 days at room temperature Expires in days from Date Inactive 10/06/2016 [facility] Saline Flush 0.9% 10 ml, Route: IVP, Drug Form: INJ, Dosing Weight 72.727, kg, PRN, PRN Line Flush, Start date: 10/06/16 2:56:00 GUT DROPPER, Duration: 30 day, Stop date: 11/05/16 3:55:00 CDTNotes: Same as: BD Posiflush Sterile No Longer Active 10/06/2016 [facility] Ondansetron 4 mg, 2 mL, Route: IVP, Drug form: INJ, Q8H, Dosing Weight 72.727, kg, PRN Nausea & Vomiting, Start date: 10/06/16 2:56:00 GUT DROPPER, Duration: 30 day, Stop date: 11/05/16 2:55:00 CDTNotes: (Same as: Zofran) MEDICATION WASTE Product Size: 4 mg Product Wasted: ___ mg No Longer Active 10/06/2016 [facility] Labetalol 10 mg, 2 mL, Route: IVP, Drug form: INJ, Q15Min, Dosing Weight 72.727, kg, PRN Hypertension, Start date: 10/06/16 2:56:00 GUT DROPPER, Duration: 30 day, Stop date: 11/05/16 3:55:00 CDT No Longer Active 10/06/2016 [facility] Hydralazine 20 mg, 1 mL, Route: IVP, Drug form: INJ, Q4H, Dosing Weight 72.727, kg, PRN Hypertension, Start date: 10/06/16 2:56:00 GUT DROPPER, Duration: 30 day, Stop date: 11/05/16 2:55:00 CDTNotes: (Same as: Apresoline) Push over 5 minutes No Longer Active 10/06/2016 [facility] Sodium Chloride 0.154 MEQ/ML Injectable Solution 1,000 mL, Rate: 100 ml/hr, Infuse over: 10 hr, Route: IV, Dosing Weight 72.727 kg, Total Volume: 1,000, Start date: 10/06/16 2:56:00 GUT DROPPER, Duration: 30 day, Stop date: 11/05/16 2:55:00 CDT No Longer Active 10/06/2016 [facility] Acetaminophen 325 MG / Hydrocodone Bitartrate 5 MG Oral Tablet 1 tab, Route: PO, Drug Form: TAB, Dosing Weight 72.727, kg, Q4H, PRN Pain Score 1-3, Start date: 10/06/16 2:56:00 GUT DROPPER, Duration: 30 day, Stop date: 11/05/16 2:55:00 CDTNotes: (Same as: [place] 325/5) Do not exceed 4gm/day of acetaminophen. No Longer Active 10/06/2016 [facility] Acetaminophen 650 mg, 2 tab, Route: PO, Drug form: TAB, Q4H, Dosing Weight 72.727, kg, PRN Pain 1-3/Temp > 99.5 F, Start date: 10/06/16 2:56:00 GUT DROPPER, Duration: 30 day, Stop date: 11/05/16 2:55:00 CDTNotes: Do not e xceed 4 gm/day. (Same as: Tylenol) No Longer Active 10/06/2016 [facility] Bisacodyl 10 mg, 1 supp, Route: NM, Drug form: SUPP, Daily, Dosing Weight 72.727, kg, PRN Constipation, Start date: 10/06/16 2:56:00 GUT DROPPER, Duration: 30 day, Stop date: 11/05/16 2:55:00 CDTNotes: (Same As: Dulcolax, Bisco-Lax) No Longer Active 10/06/2016 [facility] niCARdipine 40 mg/ NS 200 ml IV Soln (premix) 40 mg 40 mg, 200 mL, Rate: Titrate, Start Dose: 5 mg/hr, Titration: 2.5 mg/hr every 15 minutes, Goal(s): systolic Notes: Same as: Cardene Concentration: (0.2 mg /1 ml ) Inactive 10/06/2016 [facility] Sodium Chloride 0.154 MEQ/ML Injectable Solution 500 mL, 500 ml/hr, Infuse Over: 1 hr, Route: IV, 500, Drug form: INJ, ONCE, Priority: STAT, Dosing Weight 72.727 kg, Start date: 10/06/16 2:22:00 GUT DROPPER, Duration: 1 doses or times, Stop date: 10/06/16 2:22:00 GUT DROPPER No Longer Active 10/06/2016 [facility] Calcium Chloride 0.0014 MEQ/ML / Potassium Chloride 0.004 MEQ/ML / Sodium Chloride 0.103 MEQ/ML / Sodium Lactate 0.028 MEQ/ML Injectable Solution 1,000 mL, 1000 ml/hr, Infuse Over: 1 hr, Route: IV, 1,000, Drug form: INJ, ONCE, Priority: STAT, Dosing Weight 72.727 kg, Start date: 10/06/16 1:59:00 GUT DROPPER, Duration: 1 doses or times, Stop date: 10/06/16 1:59:00 GUT DROPPER No Longer Active 10/06/2016 [facility] Ondansetron 4 mg, Route: IVP, Drug form: INJ, ONCE, Dosing Weight 72.727, kg, Priority: STAT, Start date: 10/06/16 1:42:00 GUT DROPPER, Stop date: 10/06/16 1:42:00 GUT DROPPER Inactive 10/06/2016 [facility] Keppra 1,000 mg, Route: IV, ONCE, Dosing Weight 72.727, kg, Start date: 10/06/16 1:42:00 GUT DROPPER, Stop date: 10/06/16 1:42:00 GUT DROPPER Inactive 10/06/2016 [facility] tramadol hydrochloride 50 MG Oral Tablet [Ultram] 1 - 2 tabs, PO, Q4-6H, PRN .(Type PRN Reason Here...), X 3 day, # 30 tab, 0 Refill(s) Active 01/14/2015 [facility] Dexamethasone 10 mg, Route: IM, ONCE, Dosing Weight 72.727, kg, Priority: STAT, Start date: 01/14/15 10:55:00, Stop date: 01/14/15 10:55:00 Inactive 01/14/2015 [facility] ketOROLAC 30 mg/mL injectable solution 60 mg, Route: IM, ONCE, Dosing Weight 72.727, kg, Start date: 01/14/15 10:55:00, Stop date: 01/14/15 10:55:00 Inactive 01/14/2015 [facility] Flexeril 10 mg, Route: PO, ONCE, Dosing Weight 72.727, kg, Priority: STAT, Start date: 01/14/15 10:55:00, Stop date: 01/14/15 10:55:00 Inactive 01/14/2015 [facility] Famotidine 20 MG Oral Tablet [Pepcid] 20 mg=1 tab, PO, BID, # 60 tab, 0 Refill(s) Active 01/11/2015 [facility] Tylenol 650 mg, Route: PO, Drug form: TAB, ONCE, Dosing Weight 70.455, kg, Priority: STAT, Start date: 01/11/15 14:30:00, Stop date: 01/11/15 14:30:00 Inactive 01/11/2015 [facility] Sodium Chloride 0.154 MEQ/ML Injectable Solution 500 mL, 500 ml/hr, Infuse Over: 1 Hour, Route: IV, ONCE, Priority: STAT, Dosing Weight 70.455 kg, Start date: 01/11/15 13:52:00, Duration: 1 doses or times, Stop date: 01/11/15 13:52:00 Inactive 01/11/2015 [facility] Sodium Chloride 0.154 MEQ/ML Injectable Solution 500 mL, 500 ml/hr, Infuse Over: 1 hr, Route: IV, 500, Drug form: INJ, ONCE, Priority: STAT, Dosing Weight 70.455 kg, Start date: 01/11/15 11:27:00, Duration: 1 doses or times, Stop date: 01/11/15 11:27:00 Inactive 01/11/2015 [facility] Ondansetron 4 mg, Route: IVP, ONCE, Dosing Weight 70.455, kg, Priority: STAT, Start date: 01/11/15 10:13:00, Stop date: 01/11/15 10:13:00 Inactive 01/11/2015 [facility] Morphine 4 mg, Route: IVP, ONCE, Dosing Weight 70.455, kg, Priority: STAT, Start date: 01/11/15 10:13:00, Stop date: 01/11/15 10:13:00 Inactive 01/11/2015 [facility] Saline Flush 0.9% 10 mL, Route: IVP, Drug Form: INJ, Dosing Weight 70.455, kg, PRN, PRN Line Flush, Start date: 01/11/15 10:13:00, Duration: 30 day, Stop date: 02/10/15 10:12:00Notes: (Same as: BD Posiflush) Inactive 01/11/2015 [facility] Januvia 25 mg, Route: PO, Drug form: TAB, Daily, Dosing Weight 72.926, kg, Start date: 04/30/14 9:00:00, Duration: 30 day, Stop date: 05/29/14 9:00:00 No Longer Active 04/30/2014 [facility] pioglitazone 45 mg, Route: PO, Drug form: TAB, Daily, Dosing Weight 72.926, kg, Start date: 04/30/14 9:00:00, Duration: 30 day, Stop date: 05/29/14 9:00:00 No Longer Active 04/30/2014 [facility] rifaximin 550 MG Oral Tablet [XIFAXAN] 550 mg=1 tab, PO, TID, # 42 tab, 0 Refill(s) Active 04/30/2014 [facility] Bifidobacterium Infantis 4 MG Oral Capsule [Align] 4 mg=1 cap, PO, BID, # 28 cap, 0 Refill(s) Active 04/30/2014 [facility] Lisinopril 5 mg, 1 tab, Route: PO, Drug form: TAB, Daily, Dosing Weight 72.926, kg, Start date: 04/29/14 22:00:00, Duration: 30 day, Stop date: 05/29/14 9:00:00Notes: (Same as: Prinivil, Zestril) No Longer Active 04/30/2014 [facility] Simvastatin 40 mg, 1 tab, Route: PO, Drug form: TAB, Bedtime, Dosing Weight 72.926, kg, Start date: 04/29/14 21:00:00, Duration: 30 day, Stop date: 05/28/14 21:00:00Notes: (Same as: Zocor) No Longer Active 04/30/2014 [facility] Enoxaparin 40 mg, 0.4 mL, Route: SUB-Q, Drug form: INJ, Daily, Dosing Weight 72.926, kg, Start date: 04/29/14 15:00:00, Duration: 30 day, Stop date: 05/28/14 15:00:00Notes: (Same as: Lovenox) No Longer Active 04/29/2014 [facility] Ocuvite 1 tab, PO, Daily, 0 Refill(s) Active 04/29/2014 [facility] Multiple Vitamins oral tablet 1 tab, PO, Daily, # 30 tab, 0 Refill(s) Active 04/29/2014 [facility] Sodium Chloride 0.9% IV 25 mL, Route: IV, Start date: 04/29/14 9:58:00, Duration: 30 day, Stop date: 05/29/14 9:57:00, PRN Line Flush No Longer Active 04/29/2014 [facility] BD Normal Saline Flush 10 mL, Route: IV, Drug Form: INJ, PRN, PRN Line Flush, Start date: 04/29/14 9:58:00, Duration: 30 day, Stop date: 05/29/14 9:57:00Notes: (Same as: BD Posiflush) No Longer Active 04/29/2014 [facility] Morphine 4 mg, 1 mL, Route: IVP, Drug form: INJ, Q3H, Dosing Weight 71.364, kg, PRN Pain Score 4-6, Start date: 04/29/14 9:56:00, Duration: 30 day, Stop date: 05/29/14 9:55:00Notes: (Same as:MORPhine Sulfate) No Longer Active 04/29/2014 [facility] Ondansetron 4 mg, 2 mL, Route: IVP, Drug form: INJ, Q8H, Dosing Weight 72.926, kg, PRN Nausea & Vomiting, Start date: 04/29/14 9:56:00, Duration: 30 day, Stop date: 05/29/14 9:55:00Notes: (Same as: Zofran) No Longer Active 04/29/2014 [facility] Glucose 50 MG/ML / Sodium Chloride 0.0769 MEQ/ML Injectable Solution 1,000 mL, Rate: 125 ml/hr, Infuse over: 8 hr, Route: IV, Dosing Weight 72.926 kg, Total Volume: 1,000, Start date: 04/29/14 9:56:00, Duration: 30 day, Stop date: 05/29/14 9:55:00 No Longer Active 04/29/2014 [facility] Saline Flush 0.9% 5 ml, Route: IVP, Drug Form: INJ, Dosing Weight 72.926, kg, PRN, PRN Line Flush, Start date: 04/29/14 9:56:00, Duration: 30 day, Stop date: 05/29/14 9:55:00 Inactive 04/29/2014 [facility] Ondansetron 4 mg, 2 mL, Route: IVP, Drug form: INJ, ONCE, Dosing Weight 71.364, kg, Priority: STAT, Start date: 04/29/14 6:20:00, Stop date: 04/29/14 6:20:00Notes: (Same as: Zofran) Inactive 04/29/2014 [facility] Morphine 4 mg, 1 mL, Route: IVP, Drug form: INJ, ONCE, Dosing Weight 71.364, kg, Priority: STAT, Start date: 04/29/14 6:20:00, Stop date: 04/29/14 6:20:00Notes: (Same as:MORPhine Sulfate) Inactive 04/29/2014 [facility] Sodium Chloride 0.154 MEQ/ML Injectable Solution 1,000 mL, 1000 ml/hr, Infuse Over: 1 hr, Route: IV, 1,000, Drug form: INJ, ONCE, Priority: STAT, Dosing Weight 71.364 kg, Start date: 04/29/14 6:20:00, Duration: 1 doses or times, Stop date: 04/29/14 6:20:00 Inactive 04/29/2014 [facility] Saline Flush 0.9% 10 mL, Route: IVP, Drug Form: INJ, Dosing Weight 71.364, kg, PRN, PRN Line Flush, Start date: 04/29/14 6:20:00, Duration: 30 day, Stop date: 05/29/14 6:19:00Notes: (Same as: BD Posiflush) No Longer Active 04/29/2014 [facility] Zofran ODT 8 mg, 1 tab, Route: PO, Drug form: TABDIS, ONCE, Dosing Weight 72.727, kg, Start date: 04/14/14 9:04:00, Stop date: 04/14/14 9:04:00Notes: (Same as: Zofran ODT) Inactive 04/14/2014 [facility] Tylenol 650 mg, 2 tab, Route: PO, Drug form: TAB, ONCE, Dosing Weight 72.727, kg, PRN Headache, Start date: 04/14/14 9:01:00, Stop date: 05/14/14 9:00:00Notes: Do not exceed 4 gm/day. (Same as: Tylenol) Inactive 04/14/2014 [facility] Ondansetron 4 mg, 2 mL, Route: IVP, Drug form: INJ, ONCE, Dosing Weight 72.727, kg, PRN Nausea & Vomiting, Start date: 04/14/14 7:35:00Notes: (Same as: Zofran) Inactive 04/14/2014 [facility] Flumazenil 0.2 mg, 2 mL, Route: IVP, Drug form: INJ, PRN, Dosing Weight 72.727, kg, PRN Benzodiazepine Reversal, Initial dose, Start date: 04/14/14 7:35:00, Duration: 30 day, Stop date: 05/14/14 7:34:00Notes: ( Same as: Romazicon) Inactive 04/14/2014 [facility] Naloxone 0.04 mg, 0.1 mL, Route: IVP, Drug form: INJ, Q2MIN, Dosing Weight 72.727, kg, PRN Narcotic Reversal, Start date: 04/14/14 7:35:00, Duration: 8 doses or times, Stop date: Limited # of timesNotes: Same as Narcan Inactive 04/14/2014 [facility] Calcium Chloride 0.0014 MEQ/ML / Potassium Chloride 0.004 MEQ/ML / Sodium Chloride 0.103 MEQ/ML / Sodium Lactate 0.028 MEQ/ML Injectable Solution 1,000 mL, Rate: 125 ml/hr, Infuse over: 8 hr, Route: IV, Dosing Weight 72.727 kg, Total Volume: 1,000, Start date: 04/14/14 7:35:00, Duration: 30 day, Stop date: 05/14/14 7:34:00 Inactive 04/14/2014 [facility] Hydromorphone 0.5 mg, 0.25 mL, Route: IVP, Drug form: INJ, Q5Min, Dosing Weight 72.727, kg, PRN Pain Score 7-10, Start date: 04/14/14 7:35:00, Duration: 4 doses or times, Stop date: Limited # of timesNotes: (Same as: Dilaudid) Inactive 04/14/2014 [facility] Morphine 2 mg, 0.25 mL, Route: IVP, Drug form: INJ, Q5Min, Dosing Weight 72.727, kg, PRN Pain Score 4-6, Start date: 04/14/14 7:35:00, Duration: 5 doses or times, Stop date: Limited # of timesNotes: (Same as: MORPhine Sulfate) Inactive 04/14/2014 [facility] Lidocaine Hydrochloride 10 MG/ML Injectable Solution 0.5 mL, Route: INTRADERM, Drug Form: INJ, Dosing Weight 72.727, kg, ONCALL, Start date: 04/14/14 7:00:00, Duration: 1 doses or timesNotes: Preservative free. (Same as: Xylocaine MPF) Inactive 04/14/2014 [facility] NS 1,000 mL 1,000 mL, Rate: 40 ml/hr, Infuse over: 25 hr, Route: IV, Dosing Weight 72.727 kg, Total Volume: 1,000, Start date: 04/14/14 6:28:00, Duration: 30 day, Stop date: 05/14/14 6:27:00 Inactive 04/14/2014 [facility] Calcium Chloride 0.0014 MEQ/ML / Potassium Chloride 0.004 MEQ/ML / Sodium Chloride 0.103 MEQ/ML / Sodium Lactate 0.028 MEQ/ML Injectable Solution 1,000 mL, Rate: 25 ml/hr, Infuse over: 40 hr, Route: IV, Dosing Weight 72.727 kg, Total Volume: 1,000, Start date: 04/14/14 6:27:00, Duration: 30 day, Stop date: 05/14/14 6:26:00 Inactive 04/14/2014 [facility] Lidocaine Hydrochloride 10 MG/ML Injectable Solution 0.5 mL, Route: INTRADERM, Drug Form: INJ, Dosing Weight 72.727, kg, ONCALL, Start date: 03/24/14 12:00:00, Duration: 1 doses or timesNotes: Preservative free. (Same as: Xylocaine MPF) Inactive 03/24/2014 [facility] Sodium Chloride 0.154 MEQ/ML Injectable Solution 1,000 mL, Rate: 125 ml/hr, Infuse over: 8 hr, Route: IV, Dosing Weight 72.727 kg, Total Volume: 1,000, Start date: 03/24/14 11:18:00, Duration: 30 day, Stop date: 04/23/14 11:17:00 Inactive 03/24/2014 [facility] Meperidine 12.5 mg, 0.25 mL, Route: IVP, Drug form: INJ, Q30Min, Dosing Weight 72.727, kg, PRN Other -See Comment, For shivering, Start date: 03/24/14 11:18:00, Duration: 2 doses or times, Stop date: Limited # of timesNotes: (Same As: Demerol) Inactive 03/24/2014 [facility] Flumazenil 0.2 mg, 2 mL, Route: IVP, Drug form: INJ, PRN, Dosing Weight 72.727, kg, PRN Benzodiazepine Reversal, Initial dose, Start date: 03/24/14 11:18:00, Duration: 30 day, Stop date: 04/23/14 11:17:00Notes: (Same as: Romazicon) Inactive 03/24/2014 [facility] Morphine 2 mg, 0.25 mL, Route: IVP, Drug form: INJ, Q5Min, Dosing Weight 72.727, kg, PRN Pain Score 4-6, Start date: 03/24/14 11:18:00, Duration: 5 doses or times, Stop date: Limited # of timesNotes: (Same as: MORPhine Sulfate) Inactive 03/24/2014 [facility] Hydromorphone 0.5 mg, 0.25 mL, Route: IVP, Drug form: INJ, Q5Min, Dosing Weight 72.727, kg, PRN Pain Score 7-10, Start date: 03/24/14 11:18:00, Duration: 4 doses or times, Stop date: Limited # of timesNotes: (Same as: Dilaudid) Inactive 03/24/2014 [facility] Ondansetron 4 mg, 2 mL, Route: IVP, Drug form: INJ, ONCE, Dosing Weight 72.727, kg, PRN Nausea & Vomiting, Start date: 03/24/14 11:18:00Notes: (Same as: Zofran) Inactive 03/24/2014 [facility] Promethazine 6.25 mg, 0.25 mL, Route: IVPB, ONCE, Dosing Weight 72.727, kg, PRN Nausea & Vomiting, Start date: 03/24/14 11:18:00Notes: Do not give IV push. (Same as: Phenergan) Inactive 03/24/2014 [facility] Dexamethasone 4 mg, 1 mL, Route: IVP, Drug form: INJ, ONCE, Dosing Weight 72.727, kg, PRN Nausea & Vomiting, Start date: 03/24/14 11:18:00Notes: Concentration: 4mg/ml Inactive 03/24/2014 [facility] Naloxone 0.04 mg, 0.1 mL, Route: IVP, Drug form: INJ, Q2MIN, Dosing Weight 72.727, kg, PRN Narcotic Reversal, Start date: 03/24/14 11:18:00, Duration: 8 doses or times, Stop date: Limited # of timesNotes: Same as Narcan In[facility] [facility] Sodium Chloride 0.154 MEQ/ML Injectable Solution 1,000 mL, Rate: 25 ml/hr, Infuse over: 40 hr, Route: IV, Dosing Weight 72.727 kg, Total Volume: 1,000, Start date: 03/24/14 11:10:00, Duration: 30 day, Stop date: 04/23/14 11:09:00 Inactive 03/24/2014 [facility] Ondansetron 4 mg, 2 mL, Route: IVP, Drug form: INJ, ONCE, Dosing Weight 72.727, kg, PRN Nausea & Vomiting, Start date: 03/03/14 11:09:00Notes: (Same as: Zofran) Inactive 03/03/2014 [facility] Morphine 4 mg, 0.5 mL, Route: IVP, Drug form: INJ, Q5Min, Dosing Weight 72.727, kg, PRN Pain Score 7-10, Start date: 03/03/14 11:09:00, Duration: 3 doses or times, Stop date: Limited # of timesNotes: (Same as: MORPhine Sulfate) Inactive 03/03/2014 [facility] Meperidine 12.5 mg, 0.25 mL, Route: IVP, Drug form: INJ, Q30Min, Dosing Weight 72.727, kg, PRN Other -See Comment, For shivering, Start date: 03/03/14 11:09:00, Duration: 2 doses or times, Stop date: Limited # of timesNotes: (Same As: Demerol) Inactive 03/03/2014 [facility] Flumazenil 0.2 mg, 2 mL, Route: IVP, Drug form: INJ, PRN, Dosing Weight 72.727, kg, PRN Benzodiazepine Reversal, Initial dose, Start date: 03/03/14 11:09:00, Duration: 30 day, Stop date: 04/02/14 11:08:00Notes: (Same as: Romazicon) Inactive 03/03/2014 [facility] Naloxone 0.04 mg, 0.1 mL, Route: IVP, Drug form: INJ, Q2MIN, Dosing Weight 72.727, kg, PRN Narcotic Reversal, Start date: 03/03/14 11:09:00, Duration: 8 doses or times, Stop date: Limited # of timesNotes: Same as Narcan Inactive 03/03/2014 [facility] Albuterol 0.83 MG/ML Inhalant Solution 2.49 mg, 3 mL, Route: NEB, Drug form: SOLN, Q20Min, Dosing Weight 72.727, kg, PRN Wheezing, Priority: STAT, Start date: 03/03/14 11:09:00, Duration: 30 day, Stop date: 04/02/14 11:08:00Notes: SEE RT DOCUMENTATION (Same as: Proventil) Inactive 03/03/2014 [facility] Diphenhydramine 12.5 mg, 0.25 mL, Route: IVP, Drug form: INJ, Q6H, Dosing Weight 72.727, kg, PRN Itching, Start date: 03/03/14 11:09:00, Duration: 30 day, Stop date: 04/02/14 11:08:00Notes: (Same as: Benadryl) Inactive 03/03/2014 [facility] Glycopyrrolate 0.2 mg, 1 mL, Route: IVP, Drug form: INJ, Q5Min, Dosing Weight 72.727, kg, PRN Bradycardia, Start date: 03/03/14 11:09:00, Duration: 3 doses or times, Stop date: Limited # of timesNotes: (Same as: Rejiul) Inactive 03/03/2014 [facility] Racepinephrine 11.25 mg, 0.5 mL, Route: NEB, Drug Form: SOLN, Dosing Weight 72.727, kg, PRN, PRN Shortness of breath, Start date: 03/03/14 11:09:00, Duration: 30 day, Stop date: 04/02/14 11:08:00Notes: (racepinephrine *2.25% inh 0.5ml SOLN) (Same as:S2) Inactive 03/03/2014 [facility] Calcium Chloride 0.0014 MEQ/ML / Potassium Chloride 0.004 MEQ/ML / Sodium Chloride 0.103 MEQ/ML / Sodium Lactate 0.028 MEQ/ML Injectable Solution 1,000 mL, Rate: 125 ml/hr, Infuse over: 8 hr, Route: IV, Dosing Weight 72.727 kg, Total Volume: 1,000, Start date: 03/03/14 11:09:00, Duration: 30 day, Stop date: 04/02/14 11:08:00 Inactive 03/03/2014 [facility] Lidocaine Hydrochloride 10 MG/ML Injectable Solution 0.5 mL, Route: INTRADERM, Drug Form: INJ, Dosing Weight 72.727, kg, ONCALL, Start date: 03/03/14 11:00:00, Duration: 1 doses or timesNotes: Preservative free. (Same as: Xylocaine MPF) Inactive 03/03/2014 [facility] Sodium Chloride 0.154 MEQ/ML Injectable Solution 1,000 mL, Rate: 25 ml/hr, Infuse over: 40 hr, Route: IV, Dosing Weight 72.727 kg, Total Volume: 1,000, Start date: 03/03/14 10:05:00, Duration: 30 day, Stop date: 04/02/14 10:04:00 Inactive 03/03/2014 [facility] SUMAtriptan 25 mg oral tablet 25 mg=1 tab, PO, Q8H, Headache pain >5/10, # 6 tab, 0 Refill(s) Active 10/13/2013 [facility] Acetaminophen 325 MG Oral Tablet 1 to 2 tabs, PO, Q4-6H, Pain, # 120 tab, 0 Refill(s) Active 10/13/2013 [facility] Ondansetron 4 mg, 2 mL, Route: IVP, Drug form: INJ, Q8H, Dosing Weight 72.727, kg, PRN Nausea & Vomiting, Start date: 10/12/13 20:21:00, Duration: 30 day, Stop date: 11/11/13 20:20:00(Same as: Zofran) No Longer Active 10/13/2013 [facility] Morphine 2 mg, 1 mL, Route: IVP, Drug form: INJ, Q3H, Dosing Weight 72.727, kg, PRN Pain Score 4-6, Start date: 10/12/13 20:21:00, Duration: 30 day, Stop date: 11/11/13 20:20:00(Same as:MORPhine Sulfate) No Longer Active 10/13/2013 [facility] Acetaminophen 650 mg, 20.3 mL, Route: PO, Drug form: LIQ, Q4H, Dosing Weight 72.727, kg, PRN Pain 1-3/Temp > 100.4 F, Start date: 10/12/13 20:21:00, Duration: 30 day, Stop date: 11/11/13 20:20:00Max dutfthvnemcat=2522vk/day (4 gm/day). (Same as: Tylenol) No Longer Active 10/13/2013 [facility] Reglan 10 mg, 2 mL, Route: IVP, Drug form: INJ, ONCE, Dosing Weight 72.727, kg, Priority: STAT, Start date: 10/12/13 11:46:00, Stop date: 10/12/13 11:46:00(Same as: Reglan) Inactive 10/12/2013 [facility] Sodium Chloride 0.9% (Bolus) IV 1,000 mL 1,000 mL, Rate: 1,000 ml/hr, Infuse over: 1 hr, Route: IV, Dosing Weight 72.727 kg, Total Volume: 1,000, Priority: STAT, Start date: 10/12/13 11:45:00, Duration: 1 doses or times, Stop date: 10/12/13 12:44:00 Inactive 10/12/2013 [facility] Saline Flush 0.9% 5 mL, Route: IVP, Drug Form: INJ, Dosing Weight 72.727, kg, PRN, PRN Line Flush, Start date: 10/12/13 11:45:00, Duration: 30 day, Stop date: 11/11/13 12:44:00(Same as: BD Posiflush) No Longer Active 10/12/2013 [facility] tetracaine ophthalmic 1 drp, Route: BOTH EYES, ONCE, Drug form: SOLN, Start date: 06/24/12 10:57:00, Stop date: 06/24/12 10:57:00 BOTH EYES Active Alvaro 06/24/2012 [facility] cefazolin 2 gm, 100 mL, Route: IVPB, Drug form: INJ, ONCE, Start date: 11/09/11 9:48:00, Stop date: 11/09/11 9:48:00 IVPB Active Yariel 11/09/2011 [facility] NS 1,000 mL 1,000 mL, Rate: 40 ml/hr, Infuse over: 25 hr, Route: IV, Dosing Weight 71.96 kg, Total Volume: 1,000, Start date: 11/09/11 9:48:00, Duration: 30 day, Stop date: 12/09/11 9:47:00 IV No Longer Active Ruddy 11/09/2011 [facility] Allergies, Adverse Reactions, Alerts Substance Category Reaction Severity Reaction type Status Date Reported Comments Source codeine<sup>1, 2</sup> Assertion hallicuinates Drug allergy Active 01/20/2014 Data migrated from ELENZA on 10/26/15. Originally documented as CODEINE. [facility] codeine Assertion hallicuinates Drug allergy Active [facility] NKFA Assertion Food allergy Active [facility] Immunizations Immunization Date Given Site Status Last Updated Comments Source pneumococcal 13-valent vaccine 10/23/2016 Left deltoid completed [facility] Hx pneumococcal vaccine 04/29/2014 completed Mustapha [facility], JARED [facility] Results Order Name Results Value Reference Range Date Interpretation Comments Source CHEM PANEL Phosphorus 3.2 mg/dL 2.5 - 4.5 10/23/2016 [facility] CHEM PANEL Magnesium Lvl 1.9 mg/dL 1.8 - 2.4 10/23/2016 [facility] CHEM PANEL eGFR 60 mL/min/1.73m2 10/23/2016 Result Comment: The eGFR is calculated using the CKD-EPI formula. In most young, healthy individuals the eGFR will be >90 mL/min/1.73m2. The eGFR declines with age. An eGFR of 60-89 may be normal in some populations, particularly the elderly, for whom the CKD-EPI formula has not been extensively validated. Use of the eGFR is not recommended in the following populations: Individuals with unstable creatinine concentrations, including patients and those with serious co-morbid conditions. Patients with extremes in muscle mass or diet. The data above are obtained from the National Kidney Disease Education Program (NKDEP) which additionally recommends that when the eGFR is used in patients with extremes of body mass index for purposes of drug dosing, the eGFR should be multiplied by the estimated BMI. [facility] CHEM PANEL BUN 24 mg/dL 7 - 22 10/23/2016 [facility] CHEM PANEL Glucose Lvl 98 mg/dL 70 - 99 10/23/2016 [facility] CHEM PANEL Chloride Lvl 105 meq/L 95 - 109 10/23/2016 [facility] CHEM PANEL Creatinine Lvl 0.95 mg/dL 0.50 - 1.40 10/23/2016 [facility] CHEM PANEL Sodium Lvl 140 meq/L 135 - 145 10/23/2016 [facility] CHEM PANEL Potassium Lvl 4.4 meq/L 3.5 - 5.1 10/23/2016 [facility] CHEM PANEL Calcium Lvl 9.9 mg/dL 8.5 - 10.5 10/23/2016 [facility] CHEM PANEL CO2 23 meq/L 24 - 32 10/23/2016 [facility] CHEM PANEL AGAP 16.4 meq/L 10.0 - 20.0 10/23/2016 [facility] HEMATOLOGY Eosinophils # 0.1 K/CMM 0.0 - 0.5 10/23/2016 [facility] HEMATOLOGY Monocytes # 0.3 K/CMM 0.0 - 0.8 10/23/2016 [facility] HEMATOLOGY Segs-Bands # 2.1 K/CMM 1.5 - 8.1 10/23/2016 [facility] HEMATOLOGY Lymphocytes # 2.3 K/CMM 1.0 - 5.5 10/23/2016 [facility] HEMATOLOGY Basophils 1.0 % 0.0 - 1.0 10/23/2016 [facility] HEMATOLOGY Lymphocytes 46.7 % 20.0 - 40.0 10/23/2016 [facility] HEMATOLOGY Eosinophils 1.7 % 0.0 - 4.0 10/23/2016 [facility] HEMATOLOGY Monocytes 6.9 % 2.0 - 12.0 10/23/2016 [facility] HEMATOLOGY Segs 43.7 % 45.0 - 75.0 10/23/2016 [facility] HEMATOLOGY MCH 29.8 pg 27.0 - 31.0 10/23/2016 [facility] HEMATOLOGY MCHC 33.2 g/dL 32.0 - 36.0 10/23/2016 [facility] HEMATOLOGY RBC 3.49 M/CMM 4.20 - 5.40 10/23/2016 [facility] HEMATOLOGY Hgb 10.4 g/dL 12.0 - 16.0 10/23/2016 [facility] HEMATOLOGY WBC 4.8 K/CMM 3.7 - 10.4 10/23/2016 [facility] HEMATOLOGY MPV 8.1 fL 7.4 - 10.4 10/23/2016 [facility] HEMATOLOGY RDW 14.1 % 11.5 - 14.5 10/23/2016 [facility] HEMATOLOGY Platelet 493 K/CMM 133 - 450 10/23/2016 [facility] HEMATOLOGY Hct 31.2 % 36.0 - 48.0 10/23/2016 [facility] HEMATOLOGY MCV 89.5 fL 80.0 - 98.0 10/23/2016 [facility] HEMATOLOGY PTT 31.6 s 22.9 - 35.8 10/23/2016 [facility] HEMATOLOGY INR 1.06 0.85 - 1.17 10/23/2016 [facility] HEMATOLOGY PT 14.0 s 12.0 - 14.7 10/23/2016 [facility] PARATHYROID PROFILE Ca Ion WB 1.22 mMol/L 1.05 - 1.25 10/23/2016 [facility] PARATHYROID PROFILE Ca Norm WB 1.21 mMol/L 1.05 - 1.25 10/23/2016 [facility] ELECTROLYTES AGAP 15.1 meq/L 10.0 - 20.0 10/22/2016 [facility] ELECTROLYTES eGFR 54 mL/min/1.73m2 10/22/2016 Result Comment: The eGFR is calculated using the CKD-EPI formula. In most young, healthy individuals the eGFR will be >90 mL/min/1.73m2. The eGFR declines with age. An eGFR of 60-89 may be normal in some populations, particularly the elderly, for whom the CKD-EPI formula has not been extensively validated. Use of the eGFR is not recommended in the following populations: Individuals with unstable creatinine concentrations, including patients and those with serious co-morbid conditions. Patients with extremes in muscle mass or diet. The data above are obtained from the National Kidney Disease Education Program (NKDEP) which additionally recommends that when the eGFR is used in patients with extremes of body mass index for purposes of drug dosing, the eGFR should be multiplied by the estimated BMI. [facility] ELECTROLYTES Calcium Lvl 9.5 mg/dL 8.5 - 10.5 10/22/2016 [facility] ELECTROLYTES CO2 24 meq/L 24 - 32 10/22/2016 [facility] ELECTROLYTES Chloride Lvl 103 meq/L 95 - 109 10/22/2016 [facility] ELECTROLYTES Glucose Lvl 120 mg/dL 70 - 99 10/22/2016 [facility] ELECTROLYTES Sodium Lvl 137 meq/L 135 - 145 10/22/2016 [facility] ELECTROLYTES Creatinine Lvl 1.04 mg/dL 0.50 - 1.40 10/22/2016 [facility] ELECTROLYTES Potassium Lvl 5.1 meq/L 3.5 - 5.1 10/22/2016 [facility] ELECTROLYTES BUN 24 mg/dL 7 - 22 10/22/2016 [facility] HEMATOLOGY MCHC 33.2 g/dL 32.0 - 36.0 10/22/2016 [facility] HEMATOLOGY RDW 14.2 % 11.5 - 14.5 10/22/2016 [facility] HEMATOLOGY MCH 30.0 pg 27.0 - 31.0 10/22/2016 [facility] HEMATOLOGY MCV 90.4 fL 80.0 - 98.0 10/22/2016 [facility] HEMATOLOGY Hct 32.0 % 36.0 - 48.0 10/22/2016 [facility] HEMATOLOGY Hgb 10.6 g/dL 12.0 - 16.0 10/22/2016 [facility] HEMATOLOGY RBC 3.54 M/CMM 4.20 - 5.40 10/22/2016 [facility] HEMATOLOGY WBC 5.7 K/CMM 3.7 - 10.4 10/22/2016 [facility] HEMATOLOGY Platelet 476 K/CMM 133 - 450 10/22/2016 Result Comment: Due to occassional clumps, the actual count may be slightly higher. [facility] HEMATOLOGY MPV 7.6 fL 7.4 - 10.4 10/22/2016 [facility] HEMATOLOGY Lymphocytes # 1.9 K/CMM 1.0 - 5.5 10/22/2016 [facility] HEMATOLOGY Monocytes # 0.3 K/CMM 0.0 - 0.8 10/22/2016 [facility] HEMATOLOGY Basophils # 0.1 K/CMM 0.0 - 0.2 10/22/2016 [facility] HEMATOLOGY Lymphocytes 34.2 % 20.0 - 40.0 10/22/2016 [facility] HEMATOLOGY Segs-Bands # 3.3 K/CMM 1.5 - 8.1 10/22/2016 [facility] HEMATOLOGY Monocytes 5.5 % 2.0 - 12.0 10/22/2016 [facility] HEMATOLOGY Eosinophils 0.8 % 0.0 - 4.0 10/22/2016 [facility] HEMATOLOGY Basophils 1.0 % 0.0 - 1.0 10/22/2016 [facility] HEMATOLOGY RBC Morph Normal (10/22/16 5:02 PM) 10/22/2016 [facility] HEMATOLOGY Plt Morph Clumped (10/22/16 5:02 PM) 10/22/2016 [facility] HEMATOLOGY Segs 58.5 % 45.0 - 75.0 10/22/2016 [facility] CHEM PANEL Phosphorus 3.7 mg/dL 2.5 - 4.5 10/12/2016 [facility] CHEM PANEL Magnesium Lvl 2.4 mg/dL 1.8 - 2.4 10/12/2016 [facility] CHEM PANEL eGFR 64 mL/min/1.73m2 10/12/2016 Result Comment: The eGFR is calculated using the CKD-EPI formula. In most young, healthy individuals the eGFR will be >90 mL/min/1.73m2. The eGFR declines with age. An eGFR of 60-89 may be normal in some populations, particularly the elderly, for whom the CKD-EPI formula has not been extensively validated. Use of the eGFR is not recommended in the following populations: Individuals with unstable creatinine concentrations, including patients and those with serious co-morbid conditions. Patients with extremes in muscle mass or diet. The data above are obtained from the National Kidney Disease Education Program (NKDEP) which additionally recommends that when the eGFR is used in patients with extremes of body mass index for purposes of drug dosing, the eGFR should be multiplied by the estimated BMI. [facility] CHEM PANEL Calcium Lvl 8.7 mg/dL 8.5 - 10.5 10/12/2016 [facility] CHEM PANEL AGAP 14.3 meq/L 10.0 - 20.0 10/12/2016 [facility] CHEM PANEL Chloride Lvl 102 meq/L 95 - 109 10/12/2016 [facility] CHEM PANEL CO2 27 meq/L 24 - 32 10/12/2016 [facility] CHEM PANEL Sodium Lvl 140 meq/L 135 - 145 10/12/2016 [facility] CHEM PANEL Potassium Lvl 3.3 meq/L 3.5 - 5.1 10/12/2016 [facility] CHEM PANEL Glucose Lvl 133 mg/dL 70 - 99 10/12/2016 [facility] CHEM PANEL BUN 15 mg/dL 7 - 22 10/12/2016 [facility] CHEM PANEL Creatinine Lvl 0.91 mg/dL 0.50 - 1.40 10/12/2016 [facility] HEMATOLOGY MCV 89.4 fL 80.0 - 98.0 10/12/2016 [facility] HEMATOLOGY WBC 9.1 K/CMM 3.7 - 10.4 10/12/2016 [facility] HEMATOLOGY Hct 30.6 % 36.0 - 48.0 10/12/2016 [facility] HEMATOLOGY RBC 3.42 M/CMM 4.20 - 5.40 10/12/2016 [facility] HEMATOLOGY MCH 29.8 pg 27.0 - 31.0 10/12/2016 [facility] HEMATOLOGY Platelet 257 K/CMM 133 - 450 10/12/2016 [facility] HEMATOLOGY RDW 14.4 % 11.5 - 14.5 10/12/2016 [facility] HEMATOLOGY MCHC 33.4 g/dL 32.0 - 36.0 10/12/2016 [facility] HEMATOLOGY MPV 9.0 fL 7.4 - 10.4 10/12/2016 [facility] HEMATOLOGY Hgb 10.2 g/dL 12.0 - 16.0 10/12/2016 [facility] HEMATOLOGY Segs 65.9 % 45.0 - 75.0 10/12/2016 [facility] HEMATOLOGY Eosinophils 1.5 % 0.0 - 4.0 10/12/2016 [facility] HEMATOLOGY Lymphocytes 22.3 % 20.0 - 40.0 10/12/2016 [facility] HEMATOLOGY Monocytes 10.0 % 2.0 - 12.0 10/12/2016 [facility] HEMATOLOGY Basophils 0.3 % 0.0 - 1.0 10/12/2016 [facility] HEMATOLOGY Segs-Bands # 6.0 K/CMM 1.5 - 8.1 10/12/2016 [facility] HEMATOLOGY Eosinophils # 0.1 K/CMM 0.0 - 0.5 10/12/2016 [facility] HEMATOLOGY Lymphocytes # 2.0 K/CMM 1.0 - 5.5 10/12/2016 [facility] HEMATOLOGY Monocytes # 0.9 K/CMM 0.0 - 0.8 10/12/2016 [facility] CARDIAC ENZYMES Troponin-T null 0.000 - 0.100 10/11/2016 [facility] CARDIAC ENZYMES Troponin-I null 0.00 - 0.40 10/11/2016 [facility] CHEM PANEL eGFR 25 mL/min/1.73m2 10/11/2016 Result Comment: The eGFR is calculated using the CKD-EPI formula. In most young, healthy individuals the eGFR will be >90 mL/min/1.73m2. The eGFR declines with age. An eGFR of 60-89 may be normal in some populations, particularly the elderly, for whom the CKD-EPI formula has not been extensively validated. Use of the eGFR is not recommended in the following populations: Individuals with unstable creatinine concentrations, including patients and those with serious co-morbid conditions. Patients with extremes in muscle mass or diet. The data above are obtained from the National Kidney Disease Education Program (NKDEP) which additionally recommends that when the eGFR is used in patients with extremes of body mass index for purposes of drug dosing, the eGFR should be multiplied by the estimated BMI. [facility] CHEM PANEL Potassium Lvl 3.5 meq/L 3.5 - 5.1 10/11/2016 [facility] CHEM PANEL AGAP 18.5 meq/L 10.0 - 20.0 10/11/2016 [facility] CHEM PANEL CO2 22 meq/L 24 - 32 10/11/2016 [facility] CHEM PANEL Calcium Lvl 8.2 mg/dL 8.5 - 10.5 10/11/2016 [facility] CHEM PANEL Chloride Lvl 96 meq/L 95 - 109 10/11/2016 [facility] CHEM PANEL Sodium Lvl 133 meq/L 135 - 145 10/11/2016 [facility] CHEM PANEL Creatinine Lvl 1.97 mg/dL 0.50 - 1.40 10/11/2016 [facility] CHEM PANEL Glucose Lvl 303 mg/dL 70 - 99 10/11/2016 [facility] CHEM PANEL BUN 22 mg/dL 7 - 22 10/11/2016 [facility] CHEM PANEL eGFR 45 mL/min/1.73m2 10/11/2016 Result Comment: The eGFR is calculated using the CKD-EPI formula. In most young, healthy individuals the eGFR will be >90 mL/min/1.73m2. The eGFR declines with age. An eGFR of 60-89 may be normal in some populations, particularly the elderly, for whom the CKD-EPI formula has not been extensively validated. Use of the eGFR is not recommended in the following populations: Individuals with unstable creatinine concentrations, including patients and those with serious co-morbid conditions. Patients with extremes in muscle mass or diet. The data above are obtained from the National Kidney Disease Education Program (NKDEP) which additionally recommends that when the eGFR is used in patients with extremes of body mass index for purposes of drug dosing, the eGFR should be multiplied by the estimated BMI. [facility] CHEM PANEL Chloride Lvl 97 meq/L 95 - 109 10/11/2016 [facility] CHEM PANEL CO2 26 meq/L 24 - 32 10/11/2016 [facility] CHEM PANEL AGAP 13.5 meq/L 10.0 - 20.0 10/11/2016 [facility] CHEM PANEL Calcium Lvl 8.8 mg/dL 8.5 - 10.5 10/11/2016 [facility] CHEM PANEL Sodium Lvl 133 meq/L 135 - 145 10/11/2016 [facility] CHEM PANEL Creatinine Lvl 1.21 mg/dL 0.50 - 1.40 10/11/2016 [facility] CHEM PANEL BUN 20 mg/dL 7 - 22 10/11/2016 [facility] CHEM PANEL Potassium Lvl 3.5 meq/L 3.5 - 5.1 10/11/2016 [facility] CHEM PANEL Glucose Lvl 156 mg/dL 70 - 99 10/11/2016 [facility] HEMATOLOGY Lymphocytes 18.5 % 20.0 - 40.0 10/11/2016 [facility] HEMATOLOGY Monocytes 10.3 % 2.0 - 12.0 10/11/2016 [facility] HEMATOLOGY Segs 69.0 % 45.0 - 75.0 10/11/2016 [facility] HEMATOLOGY Segs-Bands # 5.0 K/CMM 1.5 - 8.1 10/11/2016 [facility] HEMATOLOGY Lymphocytes # 1.3 K/CMM 1.0 - 5.5 10/11/2016 [facility] HEMATOLOGY Eosinophils 1.8 % 0.0 - 4.0 10/11/2016 [facility] HEMATOLOGY Basophils 0.4 % 0.0 - 1.0 10/11/2016 [facility] HEMATOLOGY Monocytes # 0.7 K/CMM 0.0 - 0.8 10/11/2016 [facility] HEMATOLOGY Eosinophils # 0.1 K/CMM 0.0 - 0.5 10/11/2016 [facility] HEMATOLOGY Platelet 250 K/CMM 133 - 450 10/11/2016 [facility] HEMATOLOGY MPV 9.3 fL 7.4 - 10.4 10/11/2016 [facility] HEMATOLOGY MCHC 33.5 g/dL 32.0 - 36.0 10/11/2016 [facility] HEMATOLOGY RDW 14.0 % 11.5 - 14.5 10/11/2016 [facility] HEMATOLOGY RBC 3.37 M/CMM 4.20 - 5.40 10/11/2016 [facility] HEMATOLOGY Hgb 10.2 g/dL 12.0 - 16.0 10/11/2016 [facility] HEMATOLOGY WBC 7.2 K/CMM 3.7 - 10.4 10/11/2016 [facility] HEMATOLOGY MCH 30.2 pg 27.0 - 31.0 10/11/2016 [facility] HEMATOLOGY MCV 90.0 fL 80.0 - 98.0 10/11/2016 [facility] HEMATOLOGY Hct 30.3 % 36.0 - 48.0 10/11/2016 [facility] HEMATOLOGY MCV 89.7 fL 80.0 - 98.0 10/10/2016 [facility] HEMATOLOGY Hct 27.5 % 36.0 - 48.0 10/10/2016 [facility] HEMATOLOGY MCH 29.9 pg 27.0 - 31.0 10/10/2016 [facility] HEMATOLOGY MCHC 33.4 g/dL 32.0 - 36.0 10/10/2016 [facility] HEMATOLOGY MPV 9.2 fL 7.4 - 10.4 10/10/2016 [facility] HEMATOLOGY RDW 14.0 % 11.5 - 14.5 10/10/2016 [facility] HEMATOLOGY Platelet 212 K/CMM 133 - 450 10/10/2016 [facility] HEMATOLOGY WBC 5.7 K/CMM 3.7 - 10.4 10/10/2016 [facility] HEMATOLOGY Hgb 9.2 g/dL 12.0 - 16.0 10/10/2016 [facility] HEMATOLOGY RBC 3.07 M/CMM 4.20 - 5.40 10/10/2016 [facility] HEMATOLOGY Segs-Bands # 3.2 K/CMM 1.5 - 8.1 10/10/2016 [facility] HEMATOLOGY Basophils 0.5 % 0.0 - 1.0 10/10/2016 [facility] HEMATOLOGY Lymphocytes # 1.9 K/CMM 1.0 - 5.5 10/10/2016 [facility] HEMATOLOGY Eosinophils 2.7 % 0.0 - 4.0 10/10/2016 [facility] HEMATOLOGY Segs 55.3 % 45.0 - 75.0 10/10/2016 [facility] HEMATOLOGY Monocytes 9.0 % 2.0 - 12.0 10/10/2016 [facility] HEMATOLOGY Lymphocytes 32.5 % 20.0 - 40.0 10/10/2016 [facility] HEMATOLOGY Monocytes # 0.5 K/CMM 0.0 - 0.8 10/10/2016 [facility] HEMATOLOGY Eosinophils # 0.2 K/CMM 0.0 - 0.5 10/10/2016 [facility] CHEM PANEL Phosphorus 1.3 mg/dL 2.5 - 4.5 10/08/2016 Result Comment: Critical Result(s) called to Sharona Robertson at 10/08/2016 04:52 by AC. Read back OK. [facility] CHEM PANEL Magnesium Lvl 2.7 mg/dL 1.8 - 2.4 10/08/2016 [facility] PARATHYROID PROFILE Ca Norm WB 1.09 mMol/L 1.05 - 1.25 10/08/2016 [facility] PARATHYROID PROFILE Ca Ion WB 1.06 mMol/L 1.05 - 1.25 10/08/2016 [facility] CHEM PANEL Lactic Acid Lvl 1.0 mMol/L 0.5 - 2.2 10/07/2016 [facility] CHEM PANEL Procalcitonin Lvl 0.23 ng/mL 0.00 - 0.10 10/07/2016 [facility] Chest 1view DX Chest 1view DX EXAM: XR CHEST 1 VIEW DATE: 10/07/2016 9:21 AM GUT DROPPER INDICATION: Abnormal chest sounds COMPARISON: Previous Day FINDINGS: Feeding tube placed coursing past the inferior field of view. The cardiomediastinal silhouette is stable. While evaluation is limited given semi- erect positioning, no distinct pneumothorax is identified. Minimal basilar opacity suggest atelectasis. IMPRESSION: 1. Feeding tube placement. 10/07/2016 - - Read by: Jer Luu MD Dictated Date/time: 10/07/16 10:14 Electronically Signed by: Jer Luu MD 10/07/16 10:14 FINAL REPORT [facility] CHEM PANEL Magnesium Lvl 1.6 mg/dL 1.8 - 2.4 10/07/2016 [facility] CHEM PANEL Phosphorus 2.2 mg/dL 2.5 - 4.5 10/07/2016 [facility] CHEM PANEL Lactic Acid Lvl 2.8 mMol/L 0.5 - 2.2 10/07/2016 [facility] PARATHYROID PROFILE Ca Norm WB 1.06 mMol/L 1.05 - 1.25 10/07/2016 [facility] PARATHYROID PROFILE Ca Ion WB 1.04 mMol/L 1.05 - 1.25 10/07/2016 [facility] SPECIAL CHEMISTRY Hgb A1C 7.3 % <=5.6 % 10/07/2016 [facility] Abdomen AP DX Abdomen AP DX EXAM: XR ABDOMEN 1 VIEW DATE: 10/06/2016 11:54 PM GUT DROPPER INDICATION: Tube placement/removal/reposition ADDITIONAL INFORMATION: None. COMPARISON: 10/06/2016 at 2050. TECHNIQUE: Limited AP view of the abdomen for tube placement assessment. Number of images: 2 FINDINGS: Transesophageal feeding tube tip: Feeding tube is been advanced with the distal tip final position over the right upper quadrant of the abdomen over the expected location of the duodenal bulb.Advancement of this tube into the 2nd portion of the duodenum is recommended prior to feeding. Other tubes and lines: Electrocardiogram leads Visualized bowel: Some gas-filled loops of small bowel are seen which are no longer distended.. No free air is seen. Lung bases:Lung bases are clear. Other: Stable 1.2 cm calcification over the right lower quadrant compatible with calcified phlebolith or calcified lymph node on prior CT exam of 02/10/2015 IMPRESSION: 1. Feeding tube position as above, advancement is recommended. 2. Bowel gas pattern is nonobstructive where visualized. No free air is seen. 10/07/2016 - - Read by: Alen Godinez MD Dictated Date/time: 10/07/16 08:43 Electronically Signed by: Alen Godinez MD 10/07/16 08:45 FINAL REPORT [facility] CHEM PANEL Lactic Acid Lvl 2.4 mMol/L 0.5 - 2.2 10/07/2016 [facility] Abdomen AP DX Abdomen AP DX EXAM: XR ABDOMEN 1 VIEW DATE: 10/06/2016 5:42 PM GUT DROPPER INDICATION: Tube placement/removal/reposition ADDITIONAL INFORMATION: None. COMPARISON: 01/11/2015. TECHNIQUE: Limited AP view of the abdomen for tube placement assessment. Number of images: 1 FINDINGS: Transesophageal feeding tube tip: The feeding tube distal tip is projected over the distal esophagus at the level of T9. Other tubes and lines: Electrocardiogram leads. Visualized bowel: Some gas-filled mildly distended loops of small bowel are seen measuring up to 3.3 cm. No free air is seen. Lung bases: Airspace opacities are seen in the left lung base along with a small left pleural effusion. Other: A stable ovoid 1.2 cm calcification is seen over the right lower quadrant of the abdomen compatible with a phlebolith or calcified lymph node as seen on the prior CT exam of 02/10/2015 IMPRESSION: 1. Feeding tube position as above. Advancement of this tube into the 2nd portion of the duodenum is recommended prior to feeding. 2. Bowel gas pattern is nonobstructive where visualized. No free air is seen. 10/06/2016 - - Read by: Alen Godinez MD Dictated Date/time: 10/07/16 08:40 Electronically Signed by: Alen Godinez MD 10/07/16 08:43 FINAL REPORT [facility] URINE AND STOOL UA Ketones TR 10/06/2016 [facility] URINE AND STOOL UA Urobilinogen <=1.0 mg/dL 0.1 - 1.0 10/06/2016 [facility] URINE AND STOOL UA Sq Epi None Seen 10/06/2016 [facility] URINE AND STOOL UA pH 5.5 5.0 - 8.0 10/06/2016 [facility] URINE AND STOOL UA Turbidity Slight *ABN* (10/06/16 12:43 PM) Clear 10/06/2016 [facility] URINE AND STOOL UA Spec Grav 1.024 <=1.030 10/06/2016 [facility] URINE AND STOOL UA Color Yellow *NA* (10/06/16 12:43 PM) Yellow 10/06/2016 [facility] URINE AND STOOL UA WBC 14 /HPF 0 - 5 10/06/2016 [facility] URINE AND STOOL UA Leuk Est Trace *ABN* (10/06/16 12:43 PM) Negative 10/06/2016 [facility] URINE AND STOOL UA Glucose >=1000 mg/dL Negative mg/dL 10/06/2016 [facility] URINE AND STOOL UA Nitrite Negative (10/06/16 12:43 PM) Negative 10/06/2016 [facility] URINE AND STOOL UA Bili Negative *NA* (10/06/16 12:43 PM) Negative 10/06/2016 [facility] URINE AND STOOL UA Blood Negative (10/06/16 12:43 PM) Negative 10/06/2016 [facility] URINE AND STOOL UA Protein Negative mg/dL Negative mg/dL 10/06/2016 [facility] URINE AND STOOL UA Bacteria Occasional /HPF None Seen /HPF 10/06/2016 [facility] URINE AND STOOL UA Mucus Few /LPF None Seen /LPF 10/06/2016 [facility] URINE AND STOOL UA RBC 4 /HPF 0 - 2 10/06/2016 [facility] URINE AND STOOL UA Amorph Christa Few /HPF None Seen /HPF 10/06/2016 [facility] CARDIAC ENZYMES Troponin-T null 0.000 - 0.100 10/06/2016 [facility] CARDIAC ENZYMES Troponin-I null 0.00 - 0.40 10/06/2016 [facility] CARDIAC ENZYMES Total CK 231 unit/L 12 - 191 10/06/2016 [facility] CARDIAC ENZYMES CK MB 2.9 ng/mL 0.5 - 3.6 10/06/2016 [facility] CARDIAC ENZYMES CK MB Index 1.3 0.0 - 2.5 10/06/2016 [facility] HEMATOLOGY INR 0.95 0.85 - 1.17 10/06/2016 [facility] HEMATOLOGY PTT 24.8 s 22.9 - 35.8 10/06/2016 [facility] HEMATOLOGY PT 12.9 s 12.0 - 14.7 10/06/2016 [facility] BLOOD BANK RESULTS Antibody Scrn Negative (10/06/16 1:36 AM) 10/06/2016 [facility] BLOOD BANK RESULTS ABO/Rh B POS 10/06/2016 [facility] CARDIAC ENZYMES Troponin-I null 0.00 - 0.40 10/06/2016 [facility] CHEM PANEL B/C Ratio 21 6 - 25 10/06/2016 [facility] CHEM PANEL A/G Ratio 1.2 0.7 - 1.6 10/06/2016 [facility] CHEM PANEL Globulin 3.6 g/dL 2.7 - 4.2 10/06/2016 [facility] CHEM PANEL Total Protein 7.8 g/dL 6.4 - 8.4 10/06/2016 [facility] CHEM PANEL AST 20 unit/L 0 - 37 10/06/2016 [facility] CHEM PANEL Alk Phos 90 unit/L 39 - 136 10/06/2016 [facility] CHEM PANEL Albumin Lvl 4.2 g/dL 3.5 - 5.0 10/06/2016 [facility] CHEM PANEL ALT 23 unit/L 0 - 65 10/06/2016 [facility] CHEM PANEL Bili Total 0.4 mg/dL 0.2 - 1.3 10/06/2016 [facility] CHEM PANEL Lactic Acid WB 3.6 mmol/L 0.5 - 2.2 10/06/2016 [facility] HEMATOLOGY G-value Rapid 9.7 K d/sc 5.0 - 11.6 10/06/2016 [facility] HEMATOLOGY Estimated % Lysis Rapid 0.6 % 0.0 - 7.5 10/06/2016 [facility] HEMATOLOGY Max Amplitude Rapid 66 mm 52 - 71 10/06/2016 [facility] HEMATOLOGY Split [place] Rapid 0.5 min 10/06/2016 [facility] HEMATOLOGY ACT (TEG) Rapid 105 s 86 - 118 10/06/2016 [facility] HEMATOLOGY R-time Rapid 0.6 min 0.4 - 0.7 10/06/2016 [facility] HEMATOLOGY K-time Rapid 0.9 min 0.6 - 2.3 10/06/2016 [facility] HEMATOLOGY Angle Rapid 78 degrees 64 - 80 10/06/2016 [facility] HEMATOLOGY INR 0.80 0.85 - 1.17 10/06/2016 [facility] HEMATOLOGY PT 11.3 s 12.0 - 14.7 10/06/2016 [facility] Brain wo contrast CT Brain wo contrast CT EXAM: CT HEAD WITHOUT CONTRAST DATE: 10/06/2016 6:26 AM GUT DROPPER INDICATION: 70 years old Female patient with history of trauma and intracranial hemorrhage. TECHNIQUE: Multiple axial images were obtained through the head from vertex to the skull base. Axial bone algorithm reconstruction images are provided. COMPARISON: CT brain without dated 10/06/2016 at 0217 hours FINDINGS: There has been interval left frontotemporal craniotomy and evacuation of the previously noted left anteroinferior frontal lobe hematoma. Expected postoperative changes are noted including pneumocephalus and minimal persistent hemorrhage within the evacuation cavity as well as layering within the left frontotemporal and right frontal subdural spaces. Left convexity subdural hematoma is again noted measuring up to 5 mm as compared to 4 mm on the prior. Subarachnoid hemorrhage is noted within the left temporal lobe. Stable contusion noted within the left anterior-inferior frontal lobe. Minimal midline left to right shift of approximately 2 mm is appreciated, unchanged. No downward herniation. Ventricles are normal, without hydrocephalus. Agree with preliminary note by resident as below: IMPRESSION: 1. Interval left frontotemporal craniotomy and evacuation of left anterior temporal lobe hematoma/hemorrhagic contusion. 2. Expected postoperative changes including pneumocephalus and residual hemorrhage within the evacuation cavity and layering along the right frontal and left frontal temporal subdural spaces. 3. Stable to minimally increased left convexity subdural hematoma with minimal stable [id number] midline shift. 4. Trace left temporal subarachnoid hemorrhage. 5. Stable left anteroinferior frontal lobe contusion. Preliminary report from the Emergency Room finance vice president: Creator: Jose Wick Date: Oct 06, 2016 07:48:02 Subject: postsurgical changes noted from recent left frontral craniotomy and evacuation of the previously identified left anterior temporal lobe hematoma. 10/06/2016 - - This report was dictated by a [employer] Teacher/Fellow. I have personally reviewed the images as well as the Resident's interpretation and agree with the findings. Read by: Ranjeet Alexander MD Resident: Ranjeet Alexander MD Dictated Date/time: 10/06/16 09:20 Electronically Signed by: Romeo Ann 10/06/16 13:52 FINAL REPORT [facility] Spine-Outside Consult CT Spine-Outside Consult CT EXAM: CT CERVICAL SPINE OUTSIDE CONSULTATION DATE: 10/06/2016 4:47 AM GUT DROPPER INDICATION: Second interpretation of outside CT performed on trauma transfer patient. COMPARISON: None. TECHNIQUE: Multiplanar images of the cervical spine without contrast. Axial, sagittal and coronal images are provided. IV contrast: None. OUTSIDE REPORT: [facility] Multilevel degenerative changes. No acute abnormality. Curve reversal likely positional. DISCUSSION: No acute fracture or malalignment is identified. Degenerative disc disease is seen in the lower cervical spine, particularly at C4-C5 and C5-C6. As mentioned on the outside report, there is straightening of cervical curvature which is likely related to the degenerative disc disease and positioning of the patient No acute soft tissue abnormality is identified. IMPRESSION: 1. No acute abnormality. 2. Degenerative disc disease. This report is in general agreement with the initial interpretation obtained from the outside facility. 10/06/2016 - - Read by: Romeo Heath MD Dictated Date/time: 10/06/16 07:28 Electronically Signed by: Romeo Heath MD 10/06/16 07:30 FINAL REPORT [facility] Brain-Outside Consult CT Brain-Outside Consult CT EXAM: CT BRAIN WITH CONTRAST, OUTSIDE HOSPITAL CT DATE: 10/06/2016 4:47 AM GUT DROPPER INDICATION: 70-year-old female status post fall COMPARISON: None TECHNIQUE: Outside hospital study exploded for interpretation. Exam performed at [place], [place] on 10/05/2016 at 2344 hours. At the time of uploading, multiple in-house CTs have been obtained and the patient has gone for hematoma evacuation. FINDINGS: There is a left anterior inferior temporal lobe hematoma with surrounding vasogenic edema measuring roughly 21 x 23 mm in greatest oblique anteroposterior by transverse dimensions. Additionally, there is a small hemorrhagic contusion seen in the left anterior inferior frontal lobe. Trace subarachnoid hemorrhage is seen in the left frontal and temporal lobes adjacent to these areas of contusion. There is a trace left-sided subdural hematoma measuring approximately 4 mm in greatest dimension. There is minimal wzqi-oa-syujh midline shift measuring approximately 2 mm. Basal cisterns are patent, without evidence of downward herniation. The ventricles are normal. There is left parieto-occipital scalp hematoma. The calvarium is intact. The paranasal sinuses and mastoid air cells are clear. Visualized portions of the orbits are unremarkable. IMPRESSION: 1. Hemorrhagic contusions in the left anterior inferior temporal and frontal lobes with trace adjacent subarachnoid hemorrhage. 2. Small left convexity subdural hematoma. 3. Minimal bjba-[id number] midline shift of 2 mm. No downward herniation. 10/06/2016 - - This report was dictated by a [employer] Teacher/Fellow. I have personally reviewed the images as well as the Resident's interpretation and agree with the findings. Read by: Ranjeet Alexander MD Resident: Ranjeet Alexander MD Dictated Date/time: 10/06/16 11:33 Electronically Signed by: Romeo Ann 10/06/16 14:33 FINAL REPORT [facility] Brain wo contrast CT Brain wo contrast CT EXAM: CT HEAD WITHOUT CONTRAST DATE: 10/06/2016 2:02 AM GUT DROPPER INDICATION: 70 years old Female patient with history of altered mental status after fall. Transferred from outside hospital with intracranial cranial hematoma.. TECHNIQUE: Multiple axial images were obtained through the head from vertex to the skull base. Axial bone algorithm reconstruction images are provided. COMPARISON: None. FINDINGS: A left anterior temporal hematoma measures approximately 21 x 29 x 42 mm (transverse by anteroposterior by craniocaudal) with minimal surrounding vasogenic edema. In the left anterior inferior frontal lobe is a focal area of hypoattenuation and hemorrhage also. Trace subarachnoid hemorrhage is seen in the left anterior inferior frontal lobe. There is additionally thin left convexity subdural hematoma measuring up to 4 mm in greatest thickness. Mass effect from hematoma causes effacement of the temporal horn of the left lateral ventricle. There is minimal mytb-ym-[id number] midline shift suggested of approximately 2 mm. The nasal cisterns are patent. Ventricles are otherwise within normal limits, without hydrocephalus. The paranasal sinuses and mastoid air cells are clear. Masses noted in the floor of the right orbit. Orbits are otherwise unremarkable. There is left occipital scalp hematoma. No displaced calvarial fractures are identified. IMPRESSION: 1. Hemorrhagic contusions of the left anterior inferior temporal lobe and left anterior inferior frontal lobe. 2. Trace subarachnoid hemorrhage in the left frontal lobe. 3. Thin left convexity subdural hematoma. 4. Minimal smcy-cw-jnrja midline shift of approximately 2 mm. No downward herniation. 10/06/2016 - - This report was dictated by a [employer] Teacher/Fellow. I have personally reviewed the images as well as the Resident's interpretation and agree with the findings. Read by: Ranjeet Alexander MD Resident: Ranjeet Alexander MD Dictated Date/time: 10/06/16 07:52 Electronically Signed by: Romeo Ann 10/06/16 14:10 FINAL REPORT [facility] Brain/Neck CTA Brain/Neck CTA EXAM: CTA BRAIN EXAM: CTA NECK DATE: 10/06/2016 2:02 AM GUT DROPPER INDICATION: Acute cognitive change COMPARISON: None TECHNIQUE: Rapid acquisition spiral CT images of the brain and neck were obtained between the aortic arch and the cranial vertex during intravenous infusion of iodinated contrast for the purposes of CT angiography. 3-D CT angiographic images are created using MIP technique at the acquisition workstation. The source images are also presented for interpretation. IV contrast: 60 mL Visipaque DLP: 1438 mGy-cm FINDINGS: NECK CTA: Aortic arch: The great vessels originate from the aortic arch in the standard configuration. Calcified and noncalcified plaque causes approximately 75% stenosis of the origin of the right vertebral artery. The left vertebral artery origin is patent. Carotid arteries: The cervical common carotid arteries and cervical internal carotid arteries have a normal course, caliber, and contour. Calcification at the bifurcation of the right common carotid results in approximately 40% narrowing of the proximal internal carotid artery. Nonhemodynamically significant calcification is noted at the left carotid bifurcation. There is no evidence of vascular injury. Vertebral arteries: The vertebral arteries have a normal course, caliber and contour. The right vertebral artery is dominant. Nonhemodynamically significant calcification is seen in the bilateral V4 segments. Mesh is seen in the floor of the right orbit related to prior fracture repair. Spondylosis is seen in the cervical spine, greatest at C5-C6. BRAIN CTA: Calcification in the bilateral C4-C6 segments causes mild luminal narrowing. 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 Otherwise the anterior and posterior circulations have a normal appearance and a standard branching pattern. No branch occlusion, vascular injury, arteritis, vascular malformation or aneurysm is identified. The deep cerebral veins and major venous sinuses are normal. A left temporal hematoma displaces the left M1 and M2 segments superiorly. Agree with preliminary note by resident as below: Creator: Ekaterina Sawyer Date: Oct 06, 2016 02:43:20 Subject: no evidence of aneurysm, vascular malformation or branch occlusion IMPRESSION: 1. No aneurysm or underlying vascular malformation seen to explain hematoma. 2. Calcified and noncalcified plaque at the origin of the right vertebral artery results in approximately 75% stenosis. 3. Nonhemodynamically significant calcification at the bilateral carotid bifurcations and bilateral internal carotid artery C4-C6 segments. (All qualitative and quantitative assessments of carotid bifurcation and proximal internal carotid artery stenosis are made referencing the distal internal carotid artery {NASCET criteria}.) 10/06/2016 - - This report was dictated by a [employer] Teacher/Fellow. I have personally reviewed the images as well as the Resident's interpretation and agree with the findings. Read by: Ranjeet Alexander MD Resident: Ranjeet Alexander MD Dictated Date/time: 10/06/16 06:47 Electronically Signed by: Romeo Ann 10/06/16 14:22 FINAL REPORT [facility] Chest 1view DX Chest 1view DX EXAM: XR CHEST 1 VIEW DATE: 10/06/2016 at 0204 hours INDICATION: Pain Post Trauma COMPARISON: Abdominal series 01/11/2015 at 1203 hours. TECHNIQUE: AP chest FINDINGS: Lines and tubes: None. Lungs and pleura: Lung volumes are low. Scattered linear opacities are present in retrocardiac left lung base and at the periphery of left lower lobe above costophrenic recess. Few linear opacities are seen within right lower lobe adjacent to the dome of the right diaphragm. These opacities are most consistent with subsegmental atelectasis. Heart and mediastinum: The cardiomediastinal silhouette is stable. Atherosclerotic calcification is present within aortic arch and descending thoracic aorta. Bones: No acute bony abnormality is identified. Bridging osteophyte formation with disc space narrowing is present at mid thoracic spine. A tendon anchor is present at the right humeral head indicating prior rotator cuff surgery. IMPRESSION: 1. Low lung volume with bibasilar platelike atelectasis. 2. Atherosclerotic calcification is present within aortic arch and descending thoracic aorta. 3. Prior rotator cuff repair on the right. 4. Degenerative disc disease of mid thoracic spine. 10/06/2016 - - Read by: Jessa Dumont MD Dictated Date/time: 10/06/16 02:26 Electronically Signed by: Jessa Dumont MD 10/06/16 02:33 FINAL REPORT [facility] Abdomen/Pelvis CTA Abdomen/Pelvis CTA Exam: CTA of the abdomen and pelvis with and without contrast Reason for Exam: Abdominal pain. Mesenteric ischemia. Comparison Exam: CT scan 01/11/2015 and MRI 04/29/2014 and right upper quadrant ultrasound 01/11/2015 Technique: Multiple axial images obtained of the abdomen and pelvis. 1.25 and 5 mm slices were acquired after injection of 100 cc Omnipaque IV with timing used to optimize visualization of the abdominal aorta and its major branches. Reformatted sagittal, coronal, and 3-D MIP images were obtained for additional diagnostic information. Discussion: Visualized portions of the lung bases are unremarkable. No evidence seen for abdominal aortic aneurysm or dissection. Moderate amount of plaque seen within the abdominal aorta and its major branches. This is resulting in mild stenosis seen at the ostia of the SMA. However, the SMA remains patent. The proximal TERRIE also remains patent. Measurements of the abdominal aorta at the appropriate landmarks are the following: Diaphragmatic hiatus: 2.3 cm Celiac artery: 2.3 cm SMA: 2.0 cm Renal arteries: 1.9 cm Bifurcation: 1.5 cm On series 3, image 55 there is a 1.6 cm hypervascular region within the right lobe of the liver likely representing an AVM, or flash a hemangioma, or FNH. Short-term followup MRI exam of the liver with and without contrast should be considered. The patient is status post cholecystectomy. No biliary duct dilation. The pancreas, spleen, and adrenal glands are within normal limits. Kidneys are unremarkable. No hydronephrosis or hydroureter. Note is made of a 3.6 cm duodenal diverticulum originating from the third portion of the duodenum. No dilated loops of bowel. The appendix is not definitively seen. However, there is no ancillary evidence to suggest appendicitis. The patient is status post hysterectomy. Bladder is unremarkable. No appreciable lymphadenopathy. No acute bony abnormalities appreciated. No suspicious osteoblastic or osteolytic lesions. Impression: 1. Moderate amount of plaque seen within the abdominal aorta and its major branches. This is resulting in mild stenosis seen at the ostia of the SMA. However, the SMA remains patent. 2. 1.6 cm hypervascular region within the right lobe of the liver likely representing an AVM, or flash a hemangioma, or FNH. 02/10/2015 - - Read by: Kory Hamilton MD Dictated Date/time: 02/10/15 15:39 Electronically Signed by: Kory Hamilton MD 02/10/15 15:55 FINAL REPORT [facility] Stomach emptying NM Stomach emptying NM EXAM: GASTRIC EMPTYING STUDY: INDICATION: Abdominal pain. TECHNIQUE: The patient was administered 0.7 millicuries of technetium-99m sulfur colloid labeled egg sandwich and orange juice. Sequential anterior and posterior projection images of the abdomen were obtained for 90-minutes post administration. Emptying curve was generated based on the region of the interest of the stomach based on the geometric mean. FINDINGS: There is normal tracer transit from stomach to intestine with stomach half emptying time of 65 minutes which is normal. The stomach residual activity at 60 min is 60%, at 120 min is 7.2%. Further delayed imaging were not obtained because of the promote emptying. There is a normal lag phase of 13 min (normal is less than 20 min). No gastroesophageal reflux was noted throughout the examination. IMPRESSION: Normal gastric emptying. 02/09/2015 - - Read by: Ernestina Villanueva MD Dictated Date/time: 02/09/15 15:24 Electronically Signed by: Ernestina Villanueva MD 02/09/15 15:26 FINAL REPORT [facility] Spine cervical wo contrast CT Spine cervical wo contrast CT HISTORY: Neck pain. CERVICAL SPINE CT WITHOUT CONTRAST: Comparison 06/13/2012. Mild disc space narrowing at C4-C5. Mild endplate degenerative changes with osteophytes at C5-C6. No obvious central canal stenosis or neural exit foraminal narrowing by osteophyte. Broad-based disc bulge or protrusion C5-C6 is suspected although no further central canal stenosis is suggested. There is no fracture subluxation or acute bone lesion otherwise evident. Facet joints are normal. No pathologic prevertebral soft tissue swelling. IMPRESSION: Mild degenerative spondylosis. No acute finding. SL:01/14/2015 - - Read by: Hollis Sutton MD Dictated Date/time: 01/14/15 11:42 Electronically Signed by: Hollis Sutton MD 01/14/15 11:47 FINAL REPORT [facility] Brain wo contrast CT Brain wo contrast CT HISTORY: Headache. Brain CT without contrast. COMPARISON: 10/12/2013. No intracranial lesion or hemorrhage, infarct, mass or pathologic extra-axial fluid. Visualized paranasal sinuses and skull are normal. IMPRESSION: Negative SL:01/14/2015 - - Read by: Hollis Sutton MD Dictated Date/time: 01/14/15 11:41 Electronically Signed by: Hollis Sutton MD 01/14/15 11:42 FINAL REPORT [facility] CHEM PANEL Magnesium Lvl 1.8 mg/dL 1.8 - 2.4 01/11/2015 [facility] CHEM PANEL Lipase Lvl 218 unit/L 73 - 393 01/11/2015 [facility] CHEM PANEL A/G Ratio 1.0 0.7 - 1.6 01/11/2015 [facility] CHEM PANEL Globulin 3.2 g/dL 2.0 - 4.0 01/11/2015 [facility] CHEM PANEL B/C Ratio 16 6 - 25 01/11/2015 [facility] CHEM PANEL AGAP 13.3 meq/L 10.0 - 20.0 01/11/2015 [facility] CHEM PANEL Sodium Lvl 139 meq/L 135 - 145 01/11/2015 [facility] CHEM PANEL Chloride Lvl 106 meq/L 95 - 109 01/11/2015 [facility] CHEM PANEL Potassium Lvl 3.3 meq/L 3.5 - 5.1 01/11/2015 [facility] CHEM PANEL eGFR 51 mL/min/1.73m2 01/11/2015 1Result Comment: The eGFR is calculated using the CKD-EPI formula. In most young, healthy individuals the eGFR will be >90 mL/min/1.73m2. The eGFR declines with age. An eGFR of 60-89 may be normal in some populations, particularly the elderly, for whom the CKD-EPI formula has not been extensively validated. Use of the eGFR is not recommended in the following populations: Individuals with unstable creatinine concentrations, including patients and those with serious co-morbid conditions. Patients with extremes in muscle mass or diet. The data above are obtained from the National Kidney Disease Education Program (NKDEP) which additionally recommends that when the eGFR is used in patients with extremes of body mass index for purposes of drug dosing, the eGFR should be multiplied by the estimated BMI. [facility] CHEM PANEL BUN 18 mg/dL 7 - 22 01/11/2015 [facility] CHEM PANEL CO2 23 meq/L 24 - 32 01/11/2015 [facility] CHEM PANEL Creatinine Lvl 1.1 mg/dL 0.5 - 1.4 01/11/2015 [facility] CHEM PANEL Total Protein 6.5 g/dL 6.4 - 8.4 01/11/2015 [facility] CHEM PANEL Calcium Lvl 8.5 mg/dL 8.5 - 10.5 01/11/2015 [facility] CHEM PANEL Albumin Lvl 3.3 g/dL 3.5 - 5.0 01/11/2015 [facility] CHEM PANEL ALT 67 unit/L 0 - 65 01/11/2015 [facility] CHEM PANEL Alk Phos 167 unit/L 39 - 136 01/11/2015 [facility] CHEM PANEL AST 72 unit/L 0 - 37 01/11/2015 [facility] CHEM PANEL Bili Total 0.8 mg/dL 0.2 - 1.3 01/11/2015 [facility] CHEM PANEL Glucose Lvl 159 mg/dL 70 - 99 01/11/2015 2Interpretive Data: Adult reference range values reflect the clinical guidelines of the [place] [employer]. [facility] HEMATOLOGY MPV 9.3 fL 7.4 - 10.4 01/11/2015 [facility] Platelet 307 K/CMM 133 - 450 01/11/2015 [facility] RDW 14.8 % 11.5 - 14.5 01/11/2015 [facility] Hgb 11.9 g/dL 12.0 - 16.0 01/11/2015 [facility] Hct 35.9 % 36.0 - 48.0 01/11/2015 [facility] MCHC 33.1 g/dL 32.0 - 36.0 01/11/2015 [facility] MCV 90.4 fL 80.0 - 98.0 01/11/2015 [facility] RBC 3.98 M/CMM 4.20 - 5.40 01/11/2015 [facility] MCH 30.0 pg 27.0 - 31.0 01/11/2015 [facility] WBC 7.5 K/CMM 3.7 - 10.4 01/11/2015 [facility] Basophils # 0.1 K/CMM 0.0 - 0.2 01/11/2015 [facility] HEMATOLOGY Eosinophils # 0.2 K/CMM 0.0 - 0.5 01/11/2015 [facility] HEMATOLOGY Monocytes # 0.8 K/CMM 0.0 - 0.8 01/11/2015 [facility] Lymphocytes # 2.5 K/CMM 1.0 - 5.5 01/11/2015 [facility] Segs-Bands # 3.9 K/CMM 1.5 - 8.1 01/11/2015 [facility] HEMATOLOGY Basophils 1.1 % 0.0 - 1.0 01/11/2015 [facility] HEMATOLOGY Eosinophils 2.1 % 0.0 - 4.0 01/11/2015 [facility] HEMATOLOGY Segs 52.7 % 45.0 - 75.0 01/11/2015 [facility] Monocytes 10.5 % 2.0 - 12.0 01/11/2015 [facility] HEMATOLOGY Lymphocytes 33.6 % 20.0 - 40.0 01/11/2015 [facility] URINE AND STOOL UA Urobilinogen <=1.0 mg/dL 0.1 - 1.0 01/11/2015 [facility] URINE AND STOOL UA Color Ltyellow 01/11/2015 [facility] URINE AND STOOL UA Sq Epi None Seen 01/11/2015 [facility] URINE AND STOOL UA RBC null 0 - 2 01/11/2015 [facility] URINE AND STOOL UA WBC 1 /HPF 0 - 5 01/11/2015 [facility] URINE AND STOOL UA Leuk Est Trace *ABN* (01/11/15 10:38 AM) Negative 01/11/2015 [facility] URINE AND STOOL UA Nitrite Negative (01/11/15 10:38 AM) Negative 01/11/2015 [facility] URINE AND STOOL UA Bili Negative *NA* (01/11/15 10:38 AM) Negative 01/11/2015 [facility] URINE AND STOOL UA Blood Negative (01/11/15 10:38 AM) Negative 01/11/2015 [facility] URINE AND STOOL UA Glucose Negative mg/dL Negative mg/dL 01/11/2015 [facility] URINE AND STOOL UA Ketones Negative mg/dL Negative mg/dL 01/11/2015 [facility] URINE AND STOOL UA Protein Negative mg/dL Negative mg/dL 01/11/2015 [facility] URINE AND STOOL UA Turbidity Clear (01/11/15 10:38 AM) Clear 01/11/2015 [facility] URINE AND STOOL UA Spec Grav 1.010 <=1.030 01/11/2015 [facility] URINE AND STOOL UA pH 5.0 5.0 - 8.0 01/11/2015 [facility] Abdomen RUQ US Abdomen RUQ US HISTORY: Right upper quadrant pain. Gallbladder absent. Hepatic steatosis without focal lesion or intrahepatic bile duct dilatation. Common bile duct 7 mm, upper limits of normal. Pancreatic neck and body appear normal. Remaining pancreas not well-seen. No ascites fluid. IMPRESSION: Prior cholecystectomy. Hepatic steatosis. No specific acute finding. SL:13 01/11/2015 - - Read by: Hollis Sutton MD Dictated Date/time: 01/11/15 14:37 Electronically Signed by: Hollis Sutton MD 01/11/15 14:38 FINAL REPORT [facility] ED Abdomen/Pelvis IV contrast only CT ED Abdomen/Pelvis IV contrast only CT CT Abdomen with Contrast, CT Pelvis with Contrast: TECHNIQUE: Contiguous transaxial images of the abdomen and pelvis were performed from the lung bases to the superior pubic rami with IV contrast. Oral contrast was not administered COMPARISON: 04/29/2014 CLINICAL HX: Abdomen pain CT ABDOMEN: Lower Chest: Minimal dependent atelectasis, left lung base. Lungs and pleural spaces are otherwise clear. GI Tract: Nonvisualization of the appendix. No evidence to suggest small or large bowel obstruction. Sigmoid diverticulosis. No CT evidence for diverticulitis. There is no evidence for free fluid or free air in the abdomen. Tract and retroperitoneum: The kidneys demonstrate normal morphology and symmetric excretion. No significant retroperitoneal lymphadenopathy is noted. Abdominal viscera: The liver, spleen, pancreas, and both adrenals demonstrate normal morphology. Nonvisualization of gallbladder, presumed cholecystectomy. Mild dilation of intrahepatic and extrahepatic bile ducts, likely related to postcholecystectomy change. Vasculature: Mild to moderate aortoiliac atherosclerotic disease. Bone and Soft tissues: No significant bony abnormality is noted. CT PELVIS: The bladder demonstrates normal morphology. Presumed hysterectomy. No gross adnexal mass. No free fluid is present in the pelvis. IMPRESSION: Sigmoid diverticulosis. No CT evidence for diverticulitis. No significant acute abnormality is noted. No significant interval change from previous CT of 04/29/2014. SL:13 01/11/2015 - - Read by: Paresh Brown MD Dictated Date/time: 01/11/15 13:03 Electronically Signed by: Paresh Brown MD 01/11/15 13:17 FINAL REPORT [facility] Abdomen acute series w chest 1 view DX Abdomen acute series w chest 1 view DX ABDOMINAL SERIES (with frontal chest radiograph) HISTORY: abdominal pain, TECHNIQUE: The abdomen was evaluated in supine and upright projections. A frontal examination of the chest was also obtained. FINDINGS: The soft tissue outlines and bowel gas pattern are within normal limits. There is no evidence of obstruction, ileus, or free intraperitoneal gas. There is a 13 x 9 mm calcification in the right midabdomen just above the right sacroiliac joint. In review of a prior CT scan of 04/29/2014, this appears to represent a phlebolith. There are no other unusual intra-abdominal calcifications. Mild scattered degenerative change involving the lumbar spine per the mild thoracolumbar scoliosis. A metallic density is noted the right humeral head consistent with postoperative changes involving the right shoulder. Otherwise, the regional skeleton is unremarkable. A frontal examination of the chest was obtained. The lungs are clear. The heart and pulmonary vasculature are within normal limits. There are mild atherosclerotic calcifications involving the thoracic aorta. CONCLUSION: 1. Benign appearance of the abdomen. 2. No evidence of an active or acute process within the chest. 3. Postoperative changes, right shoulder. Coding: Abdomen 3 views CPT code: 89938 SL: 12 Romeo Leyva M.D. 01/11/2015 - - Read by: Romeo Leyva MD Dictated Date/time: 01/11/15 12:08 Electronically Signed by: Romeo Leyva MD 01/11/15 12:11 FINAL REPORT [facility] Barium swallow DX Barium swallow DX ESOPHAGRAM BARIUM SWALLOW CLINICAL HISTORY: Gastroesophageal reflux disease TECHNIQUE: Double contrast exam with barium and air. FLUORO TIME: 8 seconds. FINDINGS: Contrast images of the esophagus reveal an unremarkable course and caliber. No radiographic evidence of obstruction, stricture, intrinsic or extrinsic filling defect, diverticulum, or hiatal hernia. Swallowing and esophageal motility are unremarkable. Mild reflux into the esophagus was identified during intermittent fluoroscopy. IMPRESSION: Mild gastroesophageal reflux. 10/19/2014 - - Read by: Rosanna Chavez MD Dictated Date/time: 10/19/14 09:33 Electronically Signed by: Rosanna Chavez MD 10/19/14 09:34 FINAL REPORT [facility] CHEM PANEL Lipase Lvl 221 unit/L 73 - 393 04/30/2014 [facility] CHEM PANEL Alk Phos 47 unit/L 39 - 136 04/30/2014 [facility] CHEM PANEL Calcium Lvl 8.5 mg/dL 8.5 - 10.5 04/30/2014 [facility] CHEM PANEL eGFR 76 mL/min/1.73m2 04/30/2014 1Result Comment: The eGFR is calculated using the CKD-EPI formula. In most young, healthy individuals the eGFR will be >90 mL/min/1.73m2. The eGFR declines with age. An eGFR of 60-89 may be normal in some populations, particularly the elderly, for whom the CKD-EPI formula has not been extensively validated. Use of the eGFR is not recommended in the following populations: Individuals with unstable creatinine concentrations, including patients and those with serious co-morbid conditions. Patients with extremes in muscle mass or diet. The data above are obtained from the National Kidney Disease Education Program (NKDEP) which additionally recommends that when the eGFR is used in patients with extremes of body mass index for purposes of drug dosing, the eGFR should be multiplied by the estimated BMI. [facility] CHEM PANEL Creatinine Lvl 0.8 mg/dL 0.5 - 1.4 04/30/2014 [facility] CHEM PANEL Total Protein 5.6 g/dL 6.4 - 8.4 04/30/2014 [facility] CHEM PANEL Bili Total 0.7 mg/dL 0.2 - 1.3 04/30/2014 [facility] CHEM PANEL AST 11 unit/L 0 - 37 04/30/2014 [facility] CHEM PANEL Potassium Lvl 4.3 meq/L 3.5 - 5.1 04/30/2014 [facility] CHEM PANEL Sodium Lvl 140 meq/L 135 - 145 04/30/2014 [facility] CHEM PANEL Chloride Lvl 108 meq/L 95 - 109 04/30/2014 [facility] CHEM PANEL CO2 27 meq/L 24 - 32 04/30/2014 [facility] CHEM PANEL ALT 18 unit/L 0 - 65 04/30/2014 [facility] CHEM PANEL BUN 9 mg/dL 7 - 22 04/30/2014 [facility] CHEM PANEL Albumin Lvl 3.1 g/dL 3.5 - 5.0 04/30/2014 [facility] CHEM PANEL Glucose Lvl 150 mg/dL 70 - 99 04/30/2014 3Interpretive Data: Adult reference range values reflect the clinical guidelines of the [place] [employer]. [facility] CHEM PANEL A/G Ratio 1.2 0.7 - 1.6 04/30/2014 [facility] CHEM PANEL Globulin 2.5 g/dL 2.0 - 4.0 04/30/2014 [facility] CHEM PANEL AGAP 9.3 meq/L 10.0 - 20.0 04/30/2014 [facility] CHEM PANEL B/C Ratio 11 6 - 25 04/30/2014 [facility] HEMATOLOGY Lymphocytes 51.4 % 20.0 - 40.0 04/30/2014 [facility] HEMATOLOGY Monocytes 7.7 % 2.0 - 12.0 04/30/2014 [facility] HEMATOLOGY Segs 38.6 % 45.0 - 75.0 04/30/2014 [facility] HEMATOLOGY Basophils 0.7 % 0.0 - 1.0 04/30/2014 [facility] HEMATOLOGY Eosinophils 1.6 % 0.0 - 4.0 04/30/2014 [facility] HEMATOLOGY Lymphocytes # 2.4 K/CMM 1.0 - 5.5 04/30/2014 [facility] HEMATOLOGY Segs-Bands # 1.8 K/CMM 1.5 - 8.1 04/30/2014 [facility] HEMATOLOGY Eosinophils # 0.1 K/CMM 0.0 - 0.5 04/30/2014 [facility] HEMATOLOGY Monocytes # 0.4 K/CMM 0.0 - 0.8 04/30/[address] [facility] Hct 32.5 % 36.0 - 48.0 04/30/[address] [facility] Hgb 10.9 g/dL 12.0 - 16.0 04/30/[address] [facility] RBC 3.62 M/CMM 4.20 - 5.40 04/30/[address] [facility] WBC 4.7 K/CMM 3.7 - 10.4 04/30/[address] [facility] MCV 89.7 fL 80.0 - 98.0 04/30/[address] [facility] MCH 30.1 pg 27.0 - 31.0 04/30/[address] [facility] MCHC 33.5 g/dL 32.0 - 36.0 04/30/[address] [facility] MPV 8.1 fL 7.4 - 10.4 04/30/[address] [facility] Platelet 247 K/CMM 133 - 450 04/30/[address] [facility] RDW 14.5 % 11.5 - 14.5 04/30/2014 [facility] Abdomen w/wo contrast MRI Abdomen w/wo contrast MRI CLINICAL HISTORY: Pancreatitis. TECHNIQUE: Multiplanar spin echo sequences through the abdomen were performed before and after intravenous injection of 14 cc of Omniscan. Comparison CT scan today. The liver is 16 cm. The pattern of hepatic enhancement is physiologic. The gallbladder is not visualized. No intrahepatic biliary dilatation. The pancreas is normal. Pancreatic enhancement is uniform. No retroperitoneal fluid collection. The spleen is normal and measures 7 cm. No adrenal mass. Symmetric kidneys. No free fluid or mass in the abdomen. No evidence for aortic aneurysm. No pulmonary consolidation. IMPRESSION: 1. No acute MRI findings in the abdomen. 04/29/2014 - - Read by: Chirag Lo MD Dictated Date/time: 04/29/14 21:13 Electronically Signed by: Chirag Lo MD 04/29/14 21:17 FINAL REPORT [facility] Abdomen wo contrast MRI Abdomen wo contrast MRI CLINICAL HISTORY: Abdominal pain. TECHNIQUE: Spin echo axial and coronal imaging of the abdomen with T1 and T2 weighting M.R.C.P. FINDINGS: Gallbladder is not visualized. Common hepatic duct measures 6.6 mm. Common bile duct 6.0 mm. No evidence for intrahepatic biliary dilatation. No bile duct defect or stricture. Pancreatic duct is visible but not dilated under 2 mm. No fluid collections. IMPRESSION: 1. Negative M.R.C.P. noting nonvisualization of the gallbladder. 04/29/2014 - - Read by: Chirag Lo MD Dictated Date/time: 04/29/14 21:17 Electronically Signed by: Chirag Lo MD 04/29/14 21:20 FINAL REPORT [facility] URINE AND STOOL UA WBC 0 /HPF 0 - 5 04/29/2014 [facility] URINE AND STOOL UA Urobilinogen 0.2 mg/dL 0.1 - 1.0 04/29/2014 [facility] URINE AND STOOL UA Nitrite Negative (04/29/14 7:13 AM) Negative 04/29/2014 [facility] URINE AND STOOL UA Sq Epi None Seen (04/29/14 7:13 AM) Few 04/29/2014 [facility] URINE AND STOOL UA Leuk Est Negative (04/29/14 7:13 AM) Negative 04/29/2014 [facility] URINE AND STOOL UA Mucus None Seen (04/29/14 7:13 AM) None Seen 04/29/2014 [facility] URINE AND STOOL UA Bacteria None Seen (04/29/14 7:13 AM) None Seen 04/29/2014 [facility] URINE AND STOOL UA RBC 0 /HPF 0 - 2 04/29/2014 [facility] URINE AND STOOL UA Turbidity Clear (04/29/14 7:13 AM) Clear 04/29/2014 [facility] URINE AND STOOL UA Color Colorless (04/29/14 7:13 AM) Yellow 04/29/2014 [facility] URINE AND STOOL UA Glucose Negative (04/29/14 7:13 AM) Negative 04/29/2014 [facility] URINE AND STOOL UA Ketones Negative *NA* (04/29/14 7:13 AM) Negative 04/29/2014 [facility] URINE AND STOOL UA Bili Negative *NA* (04/29/14 7:13 AM) Negative 04/29/2014 [facility] URINE AND STOOL UA Blood Negative (04/29/14 7:13 AM) Negative 04/29/2014 [facility] URINE AND STOOL UA pH 5.5 5.0 - 8.0 04/29/2014 [facility] URINE AND STOOL UA Protein Negative (04/29/14 7:13 AM) Negative 04/29/2014 [facility] URINE AND STOOL UA Spec Grav <=1.005
*NA*
(04/29/14 7:13 AM) <=1.030 04/29/2014 [facility] IMMUNOLOGY CDC HIV 4th GEN Negative (04/29/14 6:42 AM) Negative 04/29/2014 [facility] CHEM PANEL Lipase Lvl 435 unit/L 73 - 393 04/29/2014 [facility] CHEM PANEL B/C Ratio 19 6 - 25 04/29/2014 [facility] CHEM PANEL AGAP 9.9 meq/L 10.0 - 20.0 04/29/2014 [facility] CHEM PANEL Globulin 3.0 g/dL 2.0 - 4.0 04/29/2014 [facility] CHEM PANEL A/G Ratio 1.2 0.7 - 1.6 04/29/2014 [facility] CHEM PANEL Chloride Lvl 106 meq/L 95 - 109 04/29/2014 [facility] CHEM PANEL Potassium Lvl 3.9 meq/L 3.5 - 5.1 04/29/2014 [facility] CHEM PANEL Sodium Lvl 139 meq/L 135 - 145 04/29/2014 [facility] CHEM PANEL BUN 19 mg/dL 7 - 22 04/29/2014 [facility] CHEM PANEL CO2 27 meq/L 24 - 32 04/29/2014 [facility] CHEM PANEL Albumin Lvl 3.5 g/dL 3.5 - 5.0 04/29/2014 [facility] CHEM PANEL AST 12 unit/L 0 - 37 04/29/2014 [facility] [place] CHEM PANEL ALT 19 unit/L 0 - 65 04/29/2014 [facility] CHEM PANEL Glucose Lvl 117 mg/dL 70 - 99 04/29/2014 4Interpretive Data: Adult reference range values reflect the clinical guidelines of the [place] [employer]. [facility] CHEM PANEL eGFR 58 mL/min/1.73m2 04/29/2014 2Result Comment: The eGFR is calculated using the CKD-EPI formula. In most young, healthy individuals the eGFR will be >90 mL/min/1.73m2. The eGFR declines with age. An eGFR of 60-89 may be normal in some populations, particularly the elderly, for whom the CKD-EPI formula has not been extensively validated. Use of the eGFR is not recommended in the following populations: Individuals with unstable creatinine concentrations, including patients and those with serious co-morbid conditions. Patients with extremes in muscle mass or diet. The data above are obtained from the National Kidney Disease Education Program (NKDEP) which additionally recommends that when the eGFR is used in patients with extremes of body mass index for purposes of drug dosing, the eGFR should be multiplied by the estimated BMI. [facility] CHEM PANEL Creatinine Lvl 1.0 mg/dL 0.5 - 1.4 04/29/2014 [facility] CHEM PANEL Total Protein 6.5 g/dL 6.4 - 8.4 04/29/2014 [facility] CHEM PANEL Calcium Lvl 8.7 mg/dL 8.5 - 10.5 04/29/2014 [facility] CHEM PANEL Bili Total 0.6 mg/dL 0.2 - 1.3 04/29/2014 [facility] CHEM PANEL Alk Phos 57 unit/L 39 - 136 04/29/2014 [facility] HEMATOLOGY RBC 3.91 M/CMM 4.20 - 5.40 04/29/2014 [facility] HEMATOLOGY WBC 5.0 K/CMM 3.7 - 10.4 04/29/2014 [facility] HEMATOLOGY Platelet 259 K/CMM 133 - 450 04/29/2014 [facility] HEMATOLOGY MPV 8.2 fL 7.4 - 10.4 04/29/2014 [facility] HEMATOLOGY RDW 14.6 % 11.5 - 14.5 04/29/2014 [facility] HEMATOLOGY MCHC 34.3 g/dL 32.0 - 36.0 04/29/2014 [facility] HEMATOLOGY MCH 30.8 pg 27.0 - 31.0 04/29/2014 [facility] HEMATOLOGY Hgb 12.1 g/dL 12.0 - 16.0 04/29/2014 [facility] HEMATOLOGY Hct 35.2 % 36.0 - 48.0 04/29/2014 [facility] HEMATOLOGY MCV 89.9 fL 80.0 - 98.0 04/29/2014 [facility] HEMATOLOGY INR 0.94 0.85 - 1.17 04/29/2014 5Interpretive Data: RECOMMENDED RANGES FOR PROTIME INR: 2.0-3.0 for most medical and surgical thromboembolic states. 2.5-3.5 for artificial heart valves and recurrent embolism. INR SHOULD BE USED ONLY FOR PATIENTS ON STABLE ANTICOAGULANT THERAPY. [facility] HEMATOLOGY PTT 30.2 s 22.9 - 35.8 04/29/2014 6Interpretive Data: Heparin Therapeutic Range: 57 - 92 Seconds [facility] HEMATOLOGY PT 12.5 s 12.0 - 14.7 04/29/2014 [facility] HEMATOLOGY Monocytes 7.0 % 2.0 - 12.0 04/29/2014 [facility] HEMATOLOGY Eosinophils 1.6 % 0.0 - 4.0 04/29/[address] [facility] Lymphocytes 46.0 % 20.0 - 40.0 04/29/2014 [facility] HEMATOLOGY Segs 44.9 % 45.0 - 75.0 04/29/2014 [facility] HEMATOLOGY Basophils # 0.0 K/CMM 0.0 - 0.2 04/29/2014 [facility] HEMATOLOGY Lymphocytes # 2.3 K/CMM 1.0 - 5.5 04/29/2014 [facility] HEMATOLOGY Monocytes # 0.4 K/CMM 0.0 - 0.8 04/29/2014 [facility] HEMATOLOGY Eosinophils # 0.1 K/CMM 0.0 - 0.5 04/29/[address] [facility] Basophils 0.5 % 0.0 - 1.0 04/29/[address] [facility] Segs-Bands # 2.3 K/CMM 1.5 - 8.1 04/29/2014 [facility] Abdomen/Pelvis w IV contrast CT Abdomen/Pelvis w IV contrast CT CT abdomen and pelvis with contrast Comparison: 06/10/2012 CT exam. Findings: The DLP is 1238 mGy - cm. The previously described 4 mm left lower lobe pulmonary nodule is stable on this exam, seen on image 11, series 4. The lung bases are otherwise clear. There is no pneumoperitoneum. The liver, spleen, and pancreas are unremarkable. The gallbladder is not identified. No intrahepatic biliary dilatation is identified. 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 Moderate ostial stenosis involves the celiac trunk and superior mesenteric artery, but the mesenteric vessels otherwise show normal enhancement. The abdominal aorta is moderately atherosclerotic without aneurysm. No retroperitoneal or mesenteric adenopathy is seen. The appendix is not identified. No inflammatory changes are seen in the right lower quadrant. Moderate colonic fecal material volume is present. The sigmoid colon appears unremarkable. The small bowel loops appear unremarkable. No free fluid is seen. The urinary bladder is unremarkable. Postsurgical changes are seen in the anterior abdominal wall. Impression: 1. No acute abnormality identified. 2. 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 3. Stable left lower lobe pulmonary nodule, compatible with benign etiology. 4. Atherosclerosis of the abdominal vasculature as above. 5. Please see additional comments above. 04/29/2014 - - Read by: Amauri Rosas MD Dictated Date/time: 04/29/14 07:54 Electronically Signed by: Amauri Rosas MD 04/29/14 08:06 FINAL REPORT [facility] Spine lumbar wo contrast MRI Spine lumbar wo contrast MRI MRI LUMBAR SPINE WITHOUT CONTRAST COMPARISON: 06/11/2012 MRI exam. TECHNIQUE: Sagittal T1, sagittal T2 with fat saturation, axial T1 and axial T2 images were obtained. No intravenous gadolinium was given. FINDINGS: The paravertebral soft tissues are normal. Lumbosacral junction transitional vertebra is identified, and is labeled as "S1". Please see the sagittal images for the numbering system used. Mild curvature of the lumbar spine to the right is present. Congenital shortened lumbar pedicles are seen. The conus medullaris terminates at the L1-L2 level. T12-L1 right intracanalicular T2 weighted hyperintense signal lesion measuring approximately 2.5 mm is identified, compatible with small synovial cyst. Minimal contact with the right dorsal lateral thoracic cord margin is seen. No significant central canal or foraminal stenosis. L1-L2: Minimal disc bulge is identified. No central canal or foraminal stenosis identified. L2-L3: Stable mild disc bulge is present. No central canal stenosis is seen. There is minimal disc bulge encroachment into the bilateral neural foramina. No significant foraminal stenosis identified. L3-L4: Stable mild bulge is seen with mild central canal stenosis in combination with the short lumbar pedicles and the moderate ligamenta flava redundancy. Stable mild bilateral foraminal stenosis is present. L4-L5: Progressive moderate to severe central canal stenosis is present compared to 06/11/2012 due to significant ligamenta flava redundancy and mild disc bulge, in combination with the short lumbar pedicles. There is stable broad- based left foraminal disc protrusion with mild to moderate left foraminal stenosis and mild mass effect on the left L4 exiting nerve root sleeve. L5-S1: Stable mild grade 1 anterolisthesis and mild disc bulge, with moderate to severe central canal stenosis. Severe bilateral facet osteoarthritis is present. There is stable mild bilateral foraminal stenosis. IMPRESSION: 1. Multilevel disc degenerative disease and spondylosis. 2. Lumbosacral junction transitional vertebra is identified, and is labeled as "S1". Please see the sagittal images for the numbering system used. This maintains consistency with the prior MRI. 3. T12-L1 small right intracanalicular synovial cyst noted contacting the thoracic cord. No significant central canal stenosis. 4. Stable L3-L4 mild central canal stenosis and mild bilateral foraminal stenosis. 5. Progressive L4-L5 degenerative changes with moderate to severe central canal stenosis. Stable left foraminal disc protrusion with mild to moderate left foraminal stenosis and mild mass effect on the left L4 exiting nerve root sleeve. 6. Stable L5-S1 grade 1 anterolisthesis with moderate to severe central canal stenosis and severe bilateral facet osteoarthritis. 12/31/2013 - - Read by: Amauri Rosas MD Dictated Date/time: 12/31/13 11:25 Electronically Signed by: Amauri Rosas MD 12/31/13 12:50 FINAL REPORT [facility] CHEM PANEL Calcium Lvl 9.1 mg/dL 8.5 - 10.5 10/13/2013 [facility] CHEM PANEL AGAP 11.1 meq/L 10.0 - 20.0 10/13/2013 [facility] CHEM PANEL eGFR 77 mL/min/1.73m2 10/13/2013 1Result Comment: The eGFR is calculated using the CKD-EPI formula. In most young, healthy individuals the eGFR will be >90 mL/min/1.73m2. The eGFR declines with age. An eGFR of 60-89 may be normal in some populations, particularly the elderly, for whom the CKD-EPI formula has not been extensively validated. Use of the eGFR is not recommended in the following populations: Individuals with unstable creatinine concentrations, including patients and those with serious co-morbid conditions. Patients with extremes in muscle mass or diet. The data above are obtained from the National Kidney Disease Education Program (NKDEP) which additionally recommends that when the eGFR is used in patients with extremes of body mass index for purposes of drug dosing, the eGFR should be multiplied by the estimated BMI. [facility] CHEM PANEL CO2 28 meq/L 24 - 32 10/13/2013 [facility] CHEM PANEL Creatinine Lvl 0.8 mg/dL 0.5 - 1.4 10/13/2013 [facility] CHEM PANEL Sodium Lvl 140 meq/L 135 - 145 10/13/2013 [facility] CHEM PANEL Potassium Lvl 4.1 meq/L 3.5 - 5.1 10/13/2013 [facility] CHEM PANEL Chloride Lvl 105 meq/L 95 - 109 10/13/2013 [facility] CHEM PANEL BUN 16 mg/dL 7 - 22 10/13/2013 [facility] CHEM PANEL Glucose Lvl 140 mg/dL 70 - 99 10/13/2013 4Interpretive Data: Adult reference range values reflect the clinical guidelines of the [place] [employer]. [facility] HEMATOLOGY Hgb 11.1 g/dL 12.0 - 16.0 10/13/2013 [facility] HEMATOLOGY MCHC 33.4 g/dL 32.0 - 36.0 10/13/2013 [facility] HEMATOLOGY MCH 30.2 pg 27.0 - 31.0 10/13/2013 [facility] HEMATOLOGY MCV 90.6 fL 81.0 - 99.0 10/13/2013 [facility] HEMATOLOGY Hct 33.2 % 36.0 - 48.0 10/13/2013 [facility] HEMATOLOGY RBC X 10x6 3.66 M/CMM 4.20 - 5.40 10/13/2013 [facility] HEMATOLOGY WBC X 10x3 5.2 K/CMM 3.7 - 10.4 10/13/2013 [facility] HEMATOLOGY MPV 8.7 fL 7.4 - 10.4 10/13/2013 [facility] HEMATOLOGY Platelet 244 K/CMM 133 - 450 10/13/2013 [facility] HEMATOLOGY RDW 14.8 % 11.5 - 14.5 10/13/2013 [facility] HEMATOLOGY Eosinophils # 0.1 K/CMM 0.0 - 0.5 10/13/2013 [facility] HEMATOLOGY Monocytes # 0.4 K/CMM 0.0 - 0.8 10/13/2013 [facility] HEMATOLOGY Lymphocytes # 2.3 K/CMM 1.0 - 5.5 10/13/2013 [facility] HEMATOLOGY Segs-Bands # 2.4 K/CMM 1.5 - 8.1 10/13/2013 [facility] HEMATOLOGY Eosinophils 1.2 % 0.0 - 4.0 10/13/2013 [facility] HEMATOLOGY Monocytes 7.6 % 2.0 - 12.0 10/13/2013 [facility] HEMATOLOGY Lymphocytes 45.1 % 20.0 - 40.0 10/13/2013 [facility] HEMATOLOGY Segs 45.6 % 45.0 - 75.0 10/13/[address] [facility] Basophils 0.5 % 0.0 - 1.0 10/13/2013 [facility] Brain wo contrast MRI Brain wo contrast MRI BRAIN MRI AND MRA CLINICAL HISTORY: Headache (primary thunderclap). TECHNIQUE: Standard multiplanar, multisequence MR images of the brain were acquired without IV contrast. A 3-D [id number] MRA of the [place] was subsequently obtained. COMPARISON IMAGIN10/12/2013 CT. FINDINGS: Brain: There is no abnormal extra-axial signal to suggest subarachnoid hemorrhage. A few punctate foci of abnormal FLAIR hyperintensity throughout the bihemispheric supratentorial white matter suggest minimal chronic microvascular disease. No intracranial mass effect, hydrocephalus, midline shift, hemorrhage, abnormal vascular flow void, or restricted diffusion is seen. [place]: The petrous, cavernous, and supraclinoid segments of the ICA's are widely patent. 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 P2 segments derives flow from a patent right posterior commuting artery. No left posterior communicating artery is seen. The basilar artery and its branches are otherwise unremarkable. Primary and secondary vessels of the [place] are patent without significant vascular anomaly. Tertiary vessels are grossly within normal limits. IMPRESSION: 1. No evidence of subarachnoid hemorrhage. 2. Stigmata of minimal chronic microvascular disease. 3. No significant vascular abnormality. 10/12/2013 - - Read by: Fredrick Rossi Dictated Date/time: 10/13/13 00:01 Electronically Signed by: Fredrick Rossi MD 10/13/13 00:13 FINAL REPORT [facility] Brain wo contrast MRA Brain wo contrast MRA BRAIN MRI AND MRA CLINICAL HISTORY: Headache (primary thunderclap). TECHNIQUE: Standard multiplanar, multisequence MR images of the brain were acquired without IV contrast. A 3-D [id number] MRA of the [place] was subsequently obtained. COMPARISON IMAGIN10/12/2013 CT. FINDINGS: Brain: There is no abnormal extra-axial signal to suggest subarachnoid hemorrhage. A few punctate foci of abnormal FLAIR hyperintensity throughout the bihemispheric supratentorial white matter suggest minimal chronic microvascular disease. No intracranial mass effect, hydrocephalus, midline shift, hemorrhage, abnormal vascular flow void, or restricted diffusion is seen. [place] of [place]: The petrous, cavernous, and supraclinoid segments of the ICA's are widely patent. 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 P2 segments derives flow from a patent right posterior commuting artery. No left posterior communicating artery is seen. The basilar artery and its branches are otherwise unremarkable. Primary and secondary vessels of the [place] are patent without significant vascular anomaly. Tertiary vessels are grossly within normal limits. IMPRESSION: 1. No evidence of subarachnoid hemorrhage. 2. Stigmata of minimal chronic microvascular disease. 3. No significant vascular abnormality. 10/12/2013 - - Read by: Fredrick Rossi Dictated Date/time: 10/13/13 00:01 Electronically Signed by: Fredrick Rossi MD 10/13/13 00:13 FINAL REPORT [facility] BODY [facility] Protein CSF 78 mg/dL 15 - 45 10/12/2013 6Result Comment: "Significant Findings called to [email or web address] [email or web address] [email or web address] Back OK."10/12/2013 17:17 [facility] BODY FLUIDS Glucose CSF 61 mg/dL 45 - 80 10/12/2013 [facility] BODY FLUIDS Tube Num CSF 1 10/12/2013 [facility] BODY FLUIDS Color CSF Colorless (10/12/2013 16:15:00 Donna/Stitzer) Colorless 10/12/2013 [facility] BODY FLUIDS WBC CSF 3 /mm3 0 - 53 10/12/2013 [facility] FLUIDS RBC CSF 17 /mm3 0 - 03 10/12/2013 [facility] BODY FLUIDS Clarity CSF Clear (10/12/2013 16:15:00 Donna/[place]) Clear 10/12/2013 [facility] FLUIDS Supernat CSF Colorless (10/12/2013 16:15:00 Donna/[place]) Colorless 10/12/2013 [facility] BODY FLUIDS RBC CSF 13 /mm3 0 - 03 10/12/2013 [facility] FLUIDS Supernat CSF Colorless (10/12/2013 16:15:00 Donna/[place]) Colorless 10/12/2013 [facility] FLUIDS WBC CSF 2 /mm3 0 - 53 10/12/2013 [facility] FLUIDS Clarity CSF Clear (10/12/2013 16:15:00 Donna/[place]itzer) Clear 10/12/2013 [facility] Tube Num CSF 3 10/12/2013 [facility] FLUIDS Color CSF Colorless (10/12/2013 16:15:00 Donna/[place]itzer) Colorless 10/12/2013 [facility] HEMATOLOGY PROTIME 11.9 s 12.0 - 14.7 10/12/2013 [facility] HEMATOLOGY INR 0.88 0.85 - 1.17 10/12/2013 7Interpretive Data: RECOMMENDED RANGES FOR PROTIME INR: 2.0-3.0 for most medical and surgical thromboembolic states. 2.5-3.5 for artificial heart valves and recurrent embolism. INR SHOULD BE USED ONLY FOR PATIENTS ON STABLE ANTICOAGULANT THERAPY. [facility] HEMATOLOGY aPTT 27.5 s 22.9 - 35.8 10/12/2013 8Interpretive Data: Heparin Therapeutic Range: 57 - 92 Seconds [facility] CHEM PANEL eGFR 95 mL/min/1.73m2 10/12/2013 2Result Comment: The eGFR is calculated using the CKD-EPI formula. In most young, healthy individuals the eGFR will be >90 mL/min/1.73m2. The eGFR declines with age. An eGFR of 60-89 may be normal in some populations, particularly the elderly, for whom the CKD-EPI formula has not been extensively validated. Use of the eGFR is not recommended in the following populations: Individuals with unstable creatinine concentrations, including patients and those with serious co-morbid conditions. Patients with extremes in muscle mass or diet. The data above are obtained from the National Kidney Disease Education Program (NKDEP) which additionally recommends that when the eGFR is used in patients with extremes of body mass index for purposes of drug dosing, the eGFR should be multiplied by the estimated BMI. [facility] CHEM PANEL Glucose Lvl 85 mg/dL 70 - 99 10/12/2013 5Interpretive Data: Adult reference range values reflect the clinical guidelines of the [place] [employer]. [facility] CHEM PANEL Creatinine Lvl 0.6 mg/dL 0.5 - 1.4 10/12/2013 [facility] CHEM PANEL Sodium Lvl 139 meq/L 135 - 145 10/12/2013 [facility] CHEM PANEL Potassium Lvl 4.7 meq/L 3.5 - 5.1 10/12/2013 [facility] CHEM PANEL Chloride Lvl 107 meq/L 95 - 109 10/12/2013 [facility] CHEM PANEL CO2 21 meq/L 24 - 32 10/12/2013 [facility] CHEM PANEL Calcium Lvl 9.4 mg/dL 8.5 - 10.5 10/12/2013 [facility] CHEM PANEL BUN 21 mg/dL 7 - 22 10/12/2013 [facility] CHEM PANEL AGAP 15.7 meq/L 10.0 - 20.0 10/12/2013 [facility] HEMATOLOGY Hct 36.6 % 36.0 - 48.0 10/12/2013 [facility] HEMATOLOGY MCV 90.4 fL 81.0 - 99.0 10/12/2013 [facility] HEMATOLOGY MCH 30.2 pg 27.0 - 31.0 10/12/2013 [facility] HEMATOLOGY MCHC 33.5 g/dL 32.0 - 36.0 10/12/2013 [facility] HEMATOLOGY RDW 15.1 % 11.5 - 14.5 10/12/2013 [facility] HEMATOLOGY Platelet 255 K/CMM 133 - 450 10/12/2013 [facility] HEMATOLOGY MPV 8.5 fL 7.4 - 10.4 10/12/2013 [facility] HEMATOLOGY RBC X 10x6 4.05 M/CMM 4.20 - 5.40 10/12/2013 [facility] HEMATOLOGY Hgb 12.3 g/dL 12.0 - 16.0 10/12/2013 [facility] HEMATOLOGY WBC X 10x3 6.3 K/CMM 3.7 - 10.4 10/12/2013 [facility] HEMATOLOGY Monocytes 6.6 % 2.0 - 12.0 10/12/2013 [facility] HEMATOLOGY Segs 55.1 % 45.0 - 75.0 10/12/2013 [facility] HEMATOLOGY Lymphocytes 36.9 % 20.0 - 40.0 10/12/2013 [facility] HEMATOLOGY Eosinophils 0.9 % 0.0 - 4.0 10/12/2013 [facility] HEMATOLOGY Basophils 0.5 % 0.0 - 1.0 10/12/2013 [facility] HEMATOLOGY Segs-Bands # 3.5 K/CMM 1.5 - 8.1 10/12/2013 [facility] HEMATOLOGY Eosinophils # 0.1 K/CMM 0.0 - 0.5 10/12/2013 [facility] HEMATOLOGY Monocytes # 0.4 K/CMM 0.0 - 0.8 10/12/2013 [facility] HEMATOLOGY Lymphocytes # 2.3 K/CMM 1.0 - 5.5 10/12/2013 [facility] Spine lumbar puncture w fluoro Spine lumbar puncture w fluoro HISTORY: Headache. PROCEDURE: After the risks, benefits, and alternatives to the procedure were discussed with the patient, she was given opportunity to ask questions. After all questions were answered, informed consent was obtained, signed, and placed in the chart. The back was prepped and draped in a sterile manner. A time out was performed to verify the patient's identity and the proposed procedure. 1% lidocaine was given for local anesthesia. Under fluoroscopic guidance a 25-gauge needle was advanced into the thecal sac at the level of L2-L3 until clear CSF returned from the hub. Only approximately 5 cc of clear CSF could be obtained. The stylet was then replaced and the needle withdrawn. The sample was distributed over 3 tubes and sent to the laboratory for the requested analysis. IMPRESSION: Fluoroscopic guided lumbar puncture with only 5 cc of clear CSF obtained. The sample sent to the laboratory. Fluoro time 24 seconds 10/12/2013 - - Read by: Trina Cao Dictated Date/time: 10/12/13 16:52 Electronically Signed by: Trina Cao MD 10/12/13 16:55 FINAL REPORT [facility] Brain wo contrast CT Brain wo contrast CT CT head without contrast. HISTORY: Headache. TECHNIQUE: Multiple contiguous axial images were obtained through the head without the use of IV contrast. FINDINGS: Ventricles and sulci are within normal limits for the patient's age. There is no acute intracranial hemorrhage. The basilar cisterns are patent. The crawford-white matter interface is maintained. The calvarium is intact. Visualized paranasal sinuses and mastoid air cells are clear. Postsurgical changes of the right maxillary sinus are noted. IMPRESSION: No evidence of acute intracranial hemorrhage. 10/12/2013 - - Read by: Leo Joyner Dictated Date/time: 10/12/13 12:22 Electronically Signed by: Leo Joyner MD 10/12/13 12:24 FINAL REPORT [facility] BEDSIDE GLUCOSE TESTING Glucose POC 101 mg/dL 70 - 99 08/17/2013 [place] 1Interpretive Data: Upper Reportable Limit: 200 mg/dL. [facility] Breast US Breast US - BREAST US/R ULTRASOUND OF RIGHT BREAST: 07/27/2013 CLINICAL: Focal right breast pain. Comparison is made to exams dated: 07/21/2013 mammogram, 09/09/2012 ultrasound - [facility], 06/19/2012 mammogram and 05/26/2012 mammogram - [facility]. Color flow and real-time ultrasound of the right breast were performed on the areas of interest. Crawford scale images of the real-time examination were reviewed. Targeted ultrasound performed of the right breast 12:00 7 cm from the nipple as directed by the patient demonstrates no sonographic correlate. IMPRESSION: NEGATIVE There is no sonographic evidence of malignancy. Return to annual mammogram screening schedule is recommended. SUMMARY: I notified the patient of the results and their significance at the completion of today's examination. She was instructed to return as soon as possible for repeat imaging should her clinical findings change. Also, note that a true palpable area of concern (distinct from other regions of either breast) warrants clinical attention despite a negative imaging evaluation. Dr. Camilla Fox D.O. ht/penrad:07/27/2013 13:10:01 Drilling Fluids Specialist: Jaxon Clements [facility] This exam was dictated and interpreted by [id number] [facility] letter sent: Normal exam Ultrasound BI-RADS: 1 Negative 07/27/2013 - - Read by: Camilla Fox Dictated Date/time: 07/27/13 13:10 Electronically Signed by: Camilla Fox DO 07/27/13 13:10 FINAL REPORT NUBIA Perez Digital Mammo DX Jmi MA Digital Mammo DX Jim MA - DIGITAL MAMMO DX JIM MA BILATERAL DIGITAL DIAGNOSTIC MAMMOGRAM WITH CAD: 07/21/2013 CLINICAL: 611.71: Focal right breast pain. Current study was evaluated with a Computer Aided Detection (CAD) system. Comparison is made to exams dated: 05/26/2012 mammogram - [facility], 10/04/2005 mammogram and 04/28/2009 mammogram - [facility] RONQUILLO. There are scattered fibroglandular elements in both breasts that could obscure a lesion on mammography. Stable bilateral biopsy clips. No significant masses, calcifications, or other findings are seen in either breast. IMPRESSION: INCOMPLETE: NEEDS ADDITIONAL IMAGING EVALUATION The patient was not scheduled for targeted right breast ultrasound for further evaluation of focal right breast pain and will schedule the ultrasound for a different day. SUMMARY: The patient will be contacted by [facility] to return for further imaging. Attempts to contact the patient should also be made by the referring physician in the event that we are unsuccessful. Dr. Camilla Fox D.O. ht/:07/21/2013 16:59:27 Drilling Fluids Specialist: Maya MILLER(Laurel)(Keiko), [facility] This exam was dictated and interpreted by [id number] for RONEY Perez. letter sent: Additional Imaging Mammogram BI-RADS: 0 Indeterminate 07/21/2013 - - Read by: Camilla Fox Dictated Date/time: 07/21/13 16:59 Electronically Signed by: Camilla Fox , 07/21/13 16:59 FINAL REPORT RONEY Perez Foot series Foot series EXAM: LEFT FOOT 3 VIEWS DATE: Mar 10, 2013 03:36:00 PM INDICATION: 729.5 pain in the limb COMPARISON: 05/02/2012. TECHNIQUE: AP, lateral and oblique radiographs of the left foot FINDINGS: Degenerative changes of the first MTP joint are reidentified. The foot is otherwise intact. There is Achilles enthesopathy. Soft tissues are within normal limits. Type I os naviculare identified. IMPRESSION: 1. Osteoarthritis of the first MTP joint. 2. Achilles enthesopathy. 03/10/2013 - - This report was dictated by a [employer]. I have personally reviewed the images as well as the Resident's interpretation and agree with the findings. Read by: Osvaldo Head Resident: Osvaldo Head Dictated Date/time: 03/10/13 15:48 Electronically Signed by: Davon Capone MD 03/10/13 19:10 FINAL REPORT OPID Samuel Vital Signs Vital Sign Value Date Comments Source Heart Rate 73 10/23/2016 [facility] Respitory Rate 18 10/23/2016 [facility] Systolic (mm Hg) 142 10/23/2016 [facility] Diastolic (mm Hg) 69 10/23/2016 [facility] Temperature Oral (F) 97.6 F 10/23/2016 [facility] Weight 63.636 10/23/2016 [facility] Heart Rate 60 10/23/2016 [facility] Respitory Rate 18 10/23/2016 [facility] Systolic (mm Hg) 112 10/23/2016 [facility] Diastolic (mm Hg) 71 10/23/2016 [facility] Temperature Oral (F) 97.9 F 10/23/2016 [facility] Temperature Oral (F) 98.1 F 10/23/2016 [facility] Respitory Rate 18 10/23/2016 [facility] Systolic (mm Hg) 107 10/23/2016 [facility] Diastolic (mm Hg) 56 10/23/2016 [facility] Heart Rate 61 10/23/2016 [facility] BMI Calculated 24.08 10/23/2016 [facility] Weight 63.636 10/23/2016 [facility] Height 162.56 cm 10/23/2016 [facility] BMI Calculated 34.4 10/22/2016 [facility] Weight 90.909 10/22/2016 [facility] Height 162.56 cm 10/22/2016 [facility] Systolic (mm Hg) 138 10/12/2016 [facility] Diastolic (mm Hg) 52 10/12/2016 [facility] Temperature Oral (F) 98.7 F 10/12/2016 [facility] Heart Rate 66 10/12/2016 [facility] Respitory Rate 18 10/12/2016 [facility] Temperature Oral (F) 100 F 10/12/2016 [facility] Heart Rate 60 10/12/2016 [facility] Respitory Rate 18 10/12/2016 [facility] Systolic (mm Hg) 154 10/12/2016 [facility] Diastolic (mm Hg) 72 10/12/2016 [facility] Temperature Oral (F) 99.2 F 10/12/2016 [facility] Heart Rate 68 10/12/2016 [facility] Respitory Rate 18 10/12/2016 [facility] Systolic (mm Hg) 159 10/12/2016 [facility] Diastolic (mm Hg) 66 10/12/2016 [facility] Weight 76.9 10/06/2016 [facility] BMI Calculated 27.36 10/06/2016 [facility] Height 167.64 cm 10/06/2016 [facility] Weight 72.27 10/06/2016 [facility] Respitory Rate 19 01/14/2015 [facility] Systolic (mm Hg) 118 01/14/2015 [facility] Diastolic (mm Hg) 52 01/14/2015 [facility] Heart Rate 71 01/14/2015 [facility] Temperature Oral (F) 97.8 F 01/14/2015 [facility] Weight 72.727 01/14/2015 [facility] Respitory Rate 18 01/14/2015 [facility] Heart Rate 69 01/14/2015 [facility] Temperature Oral (F) 98.1 F 01/14/2015 [facility] Systolic (mm Hg) 175 01/14/2015 [facility] Diastolic (mm Hg) 75 01/14/2015 [facility] BMI Calculated 27.52 01/14/2015 [facility] Height 162.56 cm 01/14/2015 [facility] Systolic (mm Hg) 138 01/11/2015 [facility] Diastolic (mm Hg) 74 01/11/2015 [facility] Respitory Rate 17 01/11/2015 [facility] Temperature Oral (F) 97.8 F 01/11/2015 [facility] Systolic (mm Hg) 138 01/11/2015 [facility] Diastolic (mm Hg) 54 01/11/2015 [facility] Respitory Rate 16 01/11/2015 [facility] Respitory Rate 11 01/11/2015 [facility] Systolic (mm Hg) 116 01/11/2015 [facility] Diastolic (mm Hg) 44 01/11/2015 [facility] Heart Rate 64 01/11/2015 [facility] Height 162.56 cm 01/11/2015 [facility] Weight 70.455 01/11/2015 [facility] BMI Calculated 26.66 01/11/2015 [facility] Temperature Oral (F) 97.8 F 01/11/2015 [facility] Heart Rate 63 01/11/2015 [facility] Diastolic (mm Hg) 55 04/30/2014 [facility] Systolic (mm Hg) 110 04/30/2014 [facility] Respitory Rate 16 04/30/2014 [facility] Heart Rate 58 04/30/2014 [facility] Temperature Oral (F) 98.7 F 04/30/2014 [facility] Diastolic (mm Hg) 53 04/30/2014 [facility] Heart Rate 61 04/30/2014 [facility] Respitory Rate 16 04/30/2014 [facility] Systolic (mm Hg) 92 04/30/2014 [facility] Temperature Oral (F) 97.9 F 04/30/2014 [facility] Temperature Oral (F) 98 F 04/30/2014 [facility] Heart Rate 65 04/30/2014 [facility] Respitory Rate 16 04/30/2014 [facility] Diastolic (mm Hg) 73 04/30/2014 [facility] Systolic (mm Hg) 139 04/30/2014 [facility] Weight 72.926 04/29/2014 [facility] BMI Calculated 27.6 04/29/2014 [facility] Height 162.56 cm 04/29/2014 [facility] Height 162.56 cm 04/29/2014 [facility] BMI Calculated 27.01 04/29/2014 [facility] Weight 71.364 04/29/2014 [facility] Respitory Rate 12 04/14/2014 [facility] Diastolic (mm Hg) 63 04/14/2014 [facility] Systolic (mm Hg) 107 04/14/2014 [facility] Diastolic (mm Hg) 43 04/14/2014 [facility] Respitory Rate 12 04/14/2014 [facility] Systolic (mm Hg) 120 04/14/2014 [facility] Systolic (mm Hg) 112 04/14/2014 [facility] Diastolic (mm Hg) 47 04/14/2014 [facility] Respitory Rate 12 04/14/2014 [facility] Heart Rate 58 04/14/2014 [facility] Temperature Oral (F) 98.0 F 04/14/2014 [facility] BMI Calculated 27.52 04/12/2014 [facility] Height 162.56 cm 04/12/2014 [facility] Weight 72.727 04/12/2014 [facility] Diastolic (mm Hg) 60 03/24/2014 [facility] Systolic (mm Hg) 130 03/24/2014 [facility] Respitory Rate 20 03/24/2014 [facility] Diastolic (mm Hg) 63 03/24/2014 [facility] Systolic (mm Hg) 143 03/24/2014 [facility] Respitory Rate 19 03/24/2014 [facility] Diastolic (mm Hg) 53 03/24/2014 [facility] Systolic (mm Hg) 136 03/24/2014 [facility] Respitory Rate 15 03/24/2014 [facility] Heart Rate 67 03/24/2014 [facility] Temperature Oral (F) 97.8 F 03/24/2014 [facility] BMI Calculated 27.52 03/23/2014 [facility] Weight 72.727 03/23/2014 [facility] Height 162.56 cm 03/23/2014 [facility] Diastolic (mm Hg) 68 03/03/2014 [facility] Systolic (mm Hg) 156 03/03/2014 [facility] Respitory Rate 16 03/03/2014 [facility] Systolic (mm Hg) 159 03/03/2014 [facility] Diastolic (mm Hg) 68 03/03/2014 [facility] Respitory Rate 16 03/03/2014 [facility] Systolic (mm Hg) 144 03/03/2014 [facility] Diastolic (mm Hg) 73 03/03/2014 [facility] Respitory Rate 16 03/03/2014 [facility] BMI Calculated 27.52 03/02/2014 [facility] Weight 72.727 03/02/2014 [facility] Height 162.56 cm 03/02/2014 [facility] Systolic (mm Hg) 139 10/13/2013 [facility] Diastolic (mm Hg) 75 10/13/2013 [facility] Respitory Rate 18 10/13/2013 [facility] Temperature Oral (F) 98.5 F 10/13/2013 [facility] Heart Rate 76 10/13/2013 [facility] Respitory Rate 18 10/13/2013 [facility] Heart Rate 69 10/13/2013 [facility] Temperature Oral (F) 98.9 F 10/13/2013 [facility] Diastolic (mm Hg) 75 10/13/2013 [facility] Systolic (mm Hg) 153 10/13/2013 [facility] Diastolic (mm Hg) 62 10/13/2013 [facility] Systolic (mm Hg) 122 10/13/2013 [facility] Respitory Rate 17 10/13/2013 [facility] Heart Rate 66 10/13/2013 [facility] Temperature Oral (F) 98.2 F 10/13/2013 [facility] BMI Calculated 26.83 10/13/2013 [facility] Weight 70.909 10/13/2013 [facility] Height 162.56 cm 10/13/2013 [facility] Weight 72.727 10/12/2013 [facility] Height 162.56 cm 10/12/2013 [facility] BMI Calculated 27.52 10/12/2013 [facility] Respitory Rate 18 11/09/2011 [facility] Systolic (mm Hg) 110 11/09/2011 [facility] Diastolic (mm Hg) 59 11/09/2011 [facility] Respitory Rate 15 11/09/2011 [facility] Systolic (mm Hg) 111 11/09/2011 [facility] Diastolic (mm Hg) 55 11/09/2011 [facility] Respitory Rate 15 11/09/2011 [facility] Diastolic (mm Hg) 58 11/09/2011 [facility] Systolic (mm Hg) 119 11/09/2011 [facility] Temperature Oral (F) 98.2 F 11/09/2011 [facility] Heart Rate 62 11/09/2011 [facility] Heart Rate 65 11/07/2011 [facility] Weight 71.960 11/07/2011 [facility] Height 162.56 cm 11/07/2011 [facility] Encounters Location Location Details Encounter Type Encounter Number Reason For Visit Attending Provider ADM Date DC Date Status Source OD [id number] 719.41 - JOINT PAIN-SHLD CHIRAG YARIEL 09/14/2011 Active OPID Samuel [facility] DS [id number] CHIRAG YARIEL 11/09/2011 11/09/2011 Active [facility] TH [id number] [facility] Active [facility] Outpatient [id number] ERNESTINA LANTIGUA 06/04/2012 06/04/2012 Active [facility] OD [id number] REJI THORNE 06/10/2012 06/10/2012 Active OPID Samuel OD [id number] MAN YUMIKO 06/11/2012 06/11/2012 Active OPID Samuel [facility] Inpatient [id number] ALDAIR RUDOLPH 06/13/2012 06/17/2012 Active [facility] OD [id number] MAN YUMIKO 06/19/2012 06/19/2012 [facility] [id number] LAURO PLASENCIA 06/24/2012 06/24/2012 Active [facility] Outpatient [id number] F/U LAURO PLASENCIA 07/15/2012 Active [facility] AUGUSTO [id number] MISAEL RIVERO 08/17/2013 08/17/2013 Active [facility] OBS Observation Patient [id number] _[id number] Mary Carmen Edward 10/12/2013 10/13/2013 [facility] OU [id number] [facility] 10/12/2013 10/13/2013 Active [facility] Out[facility] Diag Services [id number] Man Yumiko 12/31/2013 01/01/2014 [facility] OBS Day Surgery [id number] Park Lundberg 03/03/2014 03/03/2014 [facility] OBS Day Surgery [id number] Park Lundberg 03/24/2014 03/24/2014 [facility] OBS Day Surgery [id number] Park Lundberg 04/14/2014 04/14/2014 [facility] OBS Observation Patient [id number] Monica Dickinson 04/29/2014 04/30/2014 [facility] Di[facility] Services [id number] Mely Behachristian 10/19/2014 10/20/2014 [facility] Bedded Outpatient [id number] Mely Behachristian 10/20/2014 10/20/2014 [facility] Bedded Outpatient [id number] Mely Behazin 12/02/2014 12/02/2014 [facility] Emergency Center [id number] Maya Abernathy 01/11/2015 01/11/2015 [facility] Emergency Center [id number] Crow Muñoz 01/14/2015 01/14/2015 [facility] Outpatient [id number] Mely Behazin 02/09/2015 02/10/2015 [facility] Diag Services [id number] Nabil Calderon 02/10/2015 02/11/2015 [facility] Bedded Outpatient [id number] Mely Cheatham 03/16/2015 03/16/2015 [facility] Inpatient [id number] Dominick Soto 10/06/2016 10/12/2016 [facility] Observation [id number] Ghulam Betts 10/22/2016 10/23/2016 [facility] Outpatient [id number] [facility] 10/25/[address] [facility] Outpatient [id number] [facility] 11/29/[address] [facility] TH [id number] LT RC IMPINGEMENT/CERVICAL RADICULOPATHY CHIRAG SALDIVAR Active [facility] [id number] L SHDLR PAIN CHIRAG SALDIVAR Active [facility] Outpatient [id number] FU LAURO PLASENCIA Active [facility] Outpatient [id number] DIPLOPIA LAURO PLASENCIA Active [facility] Procedures Procedure Code Date Perfomer Comments Source Appendectomy [id number] [facility] section<sup>1</sup> 89056986 x3 - 1976, 1978, 1981 [facility] Cholecystectomy [id number] [facility] Epidural steroid injection [id number] [facility] Hysterectomy [id number] [facility] Epidural steroid injection [id number] [facility] Appendectomy [id number] [facility] section<sup>1</sup> [id number] 1x3 - 1976, 1978, 1981 [facility] Cholecystectomy [id number] [facility] Hysterectomy [id number] [facility] Appendectomy [id number] [facility] section<sup>1</sup> [id number] 1x3 - 1976, 1978, 1981 [facility] Cholecystectomy [id number] [facility] Epidural steroid injection [id number] [facility] Hysterectomy [id number] [facility] Appendectomy [id number] [facility] section<sup>1</sup> [id number] 1x3 - 1976, 1978, 1981 [facility] Cholecystectomy [id number] [facility] Epidural steroid injection [id number] [facility] Hysterectomy [id number] [facility] Cataract surgery [id number] [facility] Craniotomy [id number] [facility]
[2018-10-11] MEDS ORDERED: BROMFED DM COU118 ML PO (14:04)
[2018-10-11] MEDS ORDERED: VENTOLIN HFA18 GM INH (14:04)
[2018-10-11] MEDS ORDERED: ALBUTEROL/IPRATROPIUM 3 ML NEB NEB ONE (14:30)
--- NOTE | 2018-10-11 15:14 | Diagnostic Imaging Report ---
EXAMINATION: CXR 2 VIEW - HOPD INDICATION: ^[id number] COMPARISON: None FINDINGS: PA and lateral views TUBES and LINES: None. LUNGS: Low lung volumes. Bilateral hilar and lower lobes. Bronchial wall thickening. No lobar consolidations. PLEURA: No pleural effusion or pneumothorax. HEART AND MEDIASTINUM: The cardiomediastinal silhouette is unremarkable. BONES AND SOFT TISSUES: Round small radiopacity overlying the right humeral head. No acute osseous lesion. Soft tissues are unremarkable. UPPER ABDOMEN: No free air under the diaphragm. IMPRESSION: Bilateral hilar and lower lobes. Bronchial wall thickening suggestive of viral infection or bronchitis. Signed by: Dr. Marilyn Leach M.D. on 10/11/2018 3:11 PM
[2018-10-11 15:41] VITALS: BP 122/78
== END 2018-10-11 15:42 | disposition home or self-care (01) ==
LOC: FSED 13:30
DX: R05 Cough (principal); J20.9 Acute bronchitis, unspecified
CPT/HCPCS: 71046; 80053; 85025; 87400; 99283

== ENCOUNTER 2021-10-03 10:43 | Emergency (ER) | payer MEDICARE ==
[~2021-10-03] VITALS: Ht 162.6 cm; Wt 69.4 kg
[~2021-10-03 10:43] MED LIST changes: +BROMFED DM COU118 ML PO; +VENTOLIN HFA18 GM INH
[2021-10-03 11:16] LABS: BASOPHILS % 0.5 % (0.0-1.0); EOSINOPHILS # (AUTO) 0.1 (0.0-0.4); EOSINOPHILS % 1.3 % (0.0-6.0); HEMATOCRIT 37.2 % (34.2-44.1); HEMOGLOBIN 11.5 g/dL (12.0-16.0); LYMPHOCYTES # (AUTO) 2.3 (1.0-3.2); LYMPHOCYTES % 41.3 % (18.0-39.1); MEAN CORPUSCULAR HGB CONC 30.9 g/dL (31-35); MEAN CORPUSCULAR VOLUME 93.9 fL (81-99); MONOCYTES # (AUTO) 0.4 (0.2-0.8); MONOCYTES % 7.6 % (4.4-11.3); NEUTROPHILS # (AUTO) 2.7 (2.1-6.9); NEUTROPHILS % 48.9 % (38.7-80.0); PLATELET COUNT 215 x10e3/uL (140-360); RED BLOOD COUNT 3.96 x10e6/uL (3.6-5.1); RED CELL DISTRIBUTION WIDTH 13.3 % (11.7-14.4)
[2021-10-03 11:43] LABS: INR 0.87; PARTIAL THROMBOPLASTIN TIME 28.6 seconds (23.8-35.5); PROTHROMBIN TIME 12.5 seconds (11.9-14.5)
[2021-10-03 11:50] LABS: ALANINE AMINOTRANSFERASE 19 IU/L (0-55); ALBUMIN 4.1 g/dL (3.5-5.0); ALBUMIN/GLOBULIN RATIO 1.3 (0.8-2.0); ALKALINE PHOSPHATASE 83 IU/L (40-150); ANION GAP 14.5 mmol/L (8-16); BLOOD UREA NITROGEN 37 mg/dL (7-26); BUN/CREATININE RATIO 26 (6-25); CALCIUM 9.8 mg/dL (8.4-10.2); CARBON DIOXIDE 28 mmol/L (22-29); CHLORIDE 101 mmol/L (98-107); CREATINE KINASE 487 IU/L (29-168); CREATININE, SERUM 1.44 mg/dL (0.57-1.11); EST GLOMERULAR FILTRATION RATE 35 ML/MIN (60-); GLUCOSE 160 mg/dL (74-118); POTASSIUM 4.5 mmol/L (3.5-5.1); SODIUM 139 mmol/L (136-145)
== END 2021-10-03 14:12 | disposition home or self-care (01) ==
LOC: ER 10:52
DX: R51.9 Headache, unspecified (principal); E11.65 Type 2 diabetes mellitus with hyperglycemia; E11.42 Type 2 diabetes mellitus with diabetic polyneuropathy; I10 Essential (primary) hypertension; F41.9 Anxiety disorder, unspecified; R94.31 Abnormal electrocardiogram [ECG] [EKG]
CPT/HCPCS: 36415; 70450; 71045; 80053; 82550; 82553; 84484; 85025; 85610; 85651; 85730; 93005; 99284

== ENCOUNTER 2021-11-24 12:04 | Emergency (ER) | payer MEDICARE ==
[~2021-11-24] VITALS: Ht 162.6 cm; Wt 74.6 kg
[2021-11-24] MEDS ORDERED: ALBUTEROL/IPRATROPIUM 3 ML NEB NEB ONE (13:15)
[2021-11-24] MEDS ORDERED: VENTOLIN HFA18 GM INH (13:29)
[2021-11-24] MEDS ORDERED: CEFDINIR300 MG PO (13:30)
== END 2021-11-24 13:40 | disposition home or self-care (01) ==
LOC: FSED 12:10
DX: R05.9 Cough, unspecified (principal); J20.9 Acute bronchitis, unspecified; I87.8 Other specified disorders of veins; E11.9 Type 2 diabetes mellitus without complications; I10 Essential (primary) hypertension; F41.9 Anxiety disorder, unspecified; E78.5 Hyperlipidemia, unspecified
CPT/HCPCS: 71046; 99283

== ENCOUNTER 2024-03-04 09:03 | Emergency (ER) | payer MEDICARE ==
[~2024-03-04] VITALS: Ht 162.6 cm; Wt 68.5 kg
[~2024-03-04 09:03] MED LIST changes: +AUGMENTIN 500-1 EACH PO; +Benzonatate PO; +CEFDINIR300 MG PO; +LEVSIN-SL0.125 MG SL; +PANTOPRAZOLE SO40 MG PO
[2024-03-04 09:14] VITALS: PULSE 78; RESP 18; TEMP 97.4
[2024-03-04] MEDS ORDERED: SODIUM CHLORIDE FLUSH 10 ML SYR IV PRN (09:30)
[2024-03-04 09:39] LABS: BASOPHILS # (AUTO) 0.1 (0.0-0.1); BASOPHILS % 0.8 % (0.0-1.0); EOSINOPHILS % 0.5 % (0.0-6.0); HEMOGLOBIN 14.1 g/dL (12.0-16.0); LYMPHOCYTES # (AUTO) 2.4 (1.0-3.2); LYMPHOCYTES % 30.5 % (18.0-39.1); MEAN CORPUSCULAR HEMOGLOBIN 30.2 pg (28-32); MEAN CORPUSCULAR HGB CONC 32.8 g/dL (31-35); MEAN CORPUSCULAR VOLUME 92.1 fL (81-99); MONOCYTES # (AUTO) 0.5 (0.2-0.8); MONOCYTES % 6.9 % (4.4-11.3); NEUTROPHILS # (AUTO) 4.8 (2.1-6.9); NEUTROPHILS % 61.2 % (38.7-80.0); PLATELET COUNT 255 x10e3/uL (140-360); RED BLOOD COUNT 4.67 x10e6/uL (3.6-5.1); RED CELL DISTRIBUTION WIDTH 13.4 % (11.7-14.4); WHITE BLOOD COUNT 7.86 x10e3/uL (4.8-10.8)
[2024-03-04 09:57] LABS: ALANINE AMINOTRANSFERASE 17 IU/L (0-55); ALBUMIN 4.6 g/dL (3.5-5.0); ALBUMIN/GLOBULIN RATIO 1.4 (0.8-2.0); ALKALINE PHOSPHATASE 53 IU/L (40-150); BILIRUBIN,TOTAL 1.4 mg/dL (0.2-1.2); BLOOD UREA NITROGEN 33 mg/dL (7-26); BUN/CREATININE RATIO 23 (6-25); CARBON DIOXIDE 25 mmol/L (22-29); CHLORIDE 102 mmol/L (98-107); CREATININE, SERUM 1.41 mg/dL (0.57-1.11); EST GLOMERULAR FILTRATION RATE 38 ML/MIN (>=60); GLUCOSE 137 mg/dL (74-118); SODIUM 138 mmol/L (136-145); TOTAL PROTEIN 7.8 g/dL (6.5-8.1)
[2024-03-04] MEDS: ONDANSETRON HCL INJ 2MG/ML 2ML 2 MG/ML VIAL IV STA (10:00)
[2024-03-04] MEDS: LORAZEPAM INJ 2 MG/ML VIAL IV ONE (10:01)
[2024-03-04 10:04] LABS: TROPONIN I < 0.001 ng/mL (0-0.300)
[2024-03-04] MEDS: SODIUM CHLORIDE 0.9% 1000ML 1,000 ML IV STA (10:24)
[2024-03-04 12:08] VITALS: BP 166/84; PULSE 74; RESP 16; O2SAT 97
== END 2024-03-04 12:10 | disposition home or self-care (01) ==
LOC: ER 09:24
DX: R07.9 Chest pain, unspecified (principal); K21.9 Gastro-esophageal reflux disease without esophagitis; I10 Essential (primary) hypertension; E11.9 Type 2 diabetes mellitus without complications; G40.909 Epilepsy, unspecified, not intractable, without status epilepticus; G62.9 Polyneuropathy, unspecified; Z88.6 Allergy status to analgesic agent; Z79.84 Long term (current) use of oral hypoglycemic drugs; Z79.82 Long term (current) use of aspirin; Z79.899 Other long term (current) drug therapy
CPT/HCPCS: 36415; 71045; 80053; 84484; 85025; 93005; 99284; C9113; J2060; J2405; J7030; J2470